=== PATIENT | male | born 1945 | race American Indian/Alaskan Native ===

== ENCOUNTER 2016-07-03 15:53 | Emergency (ER) | payer OTHER ==
[2016-07-03 16:12] VITALS: BP 117/79; PULSE 76; TEMP 98; BMI 26.6
--- NOTE | 2016-07-03 17:30 | PDOC ---
History of Present Illness - General History Source: Patient, Family, Old Records Exam Limitations: No Limitations <Navneet Caban - Last Filed: 07/03/16 17:30> - General History Source: Patient, Family (Sons), Old Records Exam Limitations: Clinical Condition - History of Present Illness Initial Comments: 07/03/16 17:58 The patient is a 70 year old male, with a significant past medical history of anemia, hypertension, hyperlipidemia, diabetes, COPD s/p tracheostomy, chronic vent, coronary artery disease s/p [place] (2013)/CABG/aortic valve replacement, who presents to the emergency department needing a trach replacement. The patients sons are at the bedside. They state that the clip on the left side of his trach broke this morning. They report that they spoke to the patients ENT (Dr. Valles) who advised them to come to the office for a trach replacement or to visit the ED for evaluation. They deny any fevers, cough, respiratory distress or any recent illnesses. HPI is primarily provided by the patients sons due to the patients baseline clinical condition. Allergies: None reported. Past Surgical History: CABG; Aortic Valve Replacement; Pacemaker. Social History: Non smoker. Denies alcohol or drug use. PCP: Dr. Isrrael Peace ENT: Dr. Carter Valles <Josseline Garza - Last Filed: 07/03/16 22:40> - General Chief Complaint: Trach Tube Replacement Stated Complaint: Trach Tube Replacement Time Seen by Provider: 07/03/16 16:04 Past History - Past Medical History Anemia: Yes Cardiac Disorders: Yes ([place] in 2013, triple bypass and valve replacement) COPD: Yes CHF: Yes Diabetes: Yes HTN: Yes Hypercholesterolemia: Yes - Surgical History Cardiac Surgery: Yes (triple bypass 2011/valve replacement) - Immunization History Immunization Up to Date: Yes - Psycho/Social/Smoking Cessation Hx Anxiety: No Suicidal Ideation: No Smoking History: Unknown if ever smoked Have you smoked in the past 12 months: No If you are a former smoker, when did you quit?: 2013 Information on smoking cessation initiated: No Hx Alcohol Use: No Drug/Substance Use Hx: No Substance Use Type: None Hx Substance Use Treatment: No <Navneet Caban - Last Filed: 07/03/16 17:30> <Josseline Garza - Last Filed: 07/03/16 22:40> - Past Medical History Allergies/Adverse Reactions: Allergies Allergy/AdvReac Type Severity Reaction Status Date / Time No Known Allergies Allergy Verified 07/03/16 16:08 Home Medications: Ambulatory Orders Pantoprazole Sodium [Protonix -] 20 mg PO DAILY 08/14/15 Acetaminophen [Tylenol .Regular Strength -] 650 mg PO Q6H PRN #0 tablet Albuterol 2.5/Ipratropium 0.5 [Duoneb -] 1 amp NEB Q6H PRN #0 amp 03/05/16 Alprazolam [Xanax] 0.25 mg PO Q8H PRN #90 tablet MDD 3 03/05/16 Amino Acids/Protein Hydrolys [Prostat Sugar-Free Packet -] 30 ml PO BID@0800, 1730 #60 packet 03/05/16 Aspirin [ASA -] 81 mg PO DAILY #30 tab.chew 03/05/16 Atorvastatin Ca [Lipitor] 10 mg PO HS #30 tablet 03/05/16 Cefuroxime Axetil [Ceftin -] 500 mg PO BID #4 tablet 03/05/16 Ferrous Sulfate [Ferosul] 300 mg PO DAILY #1 bottle 03/05/16 Furosemide [Lasix -] 20 mg PO BID@0600,1400 #60 tablet 03/05/16 Insulin Detemir [Levemir Flextouch] 5 unit SQ DAILY #1 syringe 03/05/16 Isopropyl Alcohol [Alcoh-Wipe] 1 each BID #1 box 03/05/16 Lancets/Blood Glucose Strips [Fora [id number] Strp-Lnct] 1 each BID #1 combo..pkg 03/05/16 Metformin HCl [Glucophage -] 500 mg PO BID@0700,1630 #60 tablet 03/05/16 Metoprolol Succinate [Toprol XL -] 12.5 mg PO BID #60 tab.sr.24h 03/05/16 Miscellaneous Medical Supply [Glucometer Device] 1 each [facility] BID #1 kit 03/05/16 Multivitamins [Multivit ([facility] Formulary)] 1 tab PO DAILY #30 tab 03/05/16 Prednisone [Deltasone -] 7.5 mg PO DAILY #30 tablet 03/05/16 Sennosides [Senna -] 1 tab PO BID #60 tablet 03/05/16 Tamsulosin HCl [Flomax -] 0.4 mg PO DAILY@0830 #30 cap.er.24h 03/05/16 Review of Systems - Review of Systems Able to Perform ROS?: No Comments:: 07/03/16 17:46 Unable to perform ROS due to patients baseline clinical condition. <Josseline Garza - Last Filed: 07/03/16 22:40> *Physical Exam - Vital Signs Last Vital Signs Temp Pulse Resp BP Pulse Ox 98.0 F 76 20 117/79 100 07/03/16 16:08 07/03/16 16:08 07/03/16 16:08 07/03/16 16:08 07/03/16 16:08 <Navneet Caban - Last Filed: 07/03/16 17:30> - Vital Signs Last Vital Signs Temp Pulse Resp BP Pulse Ox 98.0 F 76 20 117/79 100 07/03/16 16:08 07/03/16 16:08 07/03/16 16:08 07/03/16 16:08 07/03/16 16:08 - Physical Exam Comments: 07/03/16 17:45 GENERAL: Awake, alert, and fully oriented, in no acute distress. HEAD: No signs of trauma. EYES: PERRLA, EOMI, sclera anicteric, conjunctiva clear. ENT: Trach site is clean, dry and intact. Broken clip on left side of trach. Auricles normal inspection, hearing grossly normal, nares patent, oropharynx clear without exudates. Moist mucosa. NECK: Normal ROM, supple, no lymphadenopathy, JVD, or masses. LUNGS: Breath sounds equal, clear to auscultation bilaterally. No wheezes, and no crackles. HEART: Regular rate and rhythm, normal S1 and S2, no murmurs, rubs or gallops. ABDOMEN: Soft, nontender, normoactive bowel sounds. No guarding, no rebound. No masses. EXTREMITIES: Normal range of motion, no edema. No clubbing or cyanosis. No cords , erythema, or tenderness. NEUROLOGICAL: Cranial nerves II through XII intact. Normal speech, gait deferred. SKIN: Warm, dry, normal turgor, no rashes or lesions noted. <Josseline Garza - Last Filed: 07/03/16 22:40> ED Treatment Course - RADIOLOGY Radiology Studies Ordered: Category Date Time Status CHEST X-RAY PORTABLE* [RAD] Stat Radiology 07/03/16 16:27 Taken <Navneet Caban - Last Filed: 07/03/16 17:30> Medical Decision Making - Medical Decision Making 07/03/16 17:32 A portion of this note was documented by scribe services under my direction. I have reviewed the details of the note, within reason, and agree with the documentation with the following case summary and management plan written by me. Patient treated in the ED. Nursing notes are reviewed and incorporated into the medical decision-making. Vital signs reviewed. Peripheral IV access obtained by the nurse, laboratory studies are drawn and sent, reviewed and interpreted by myself. Vital Signs Temp Pulse Resp BP Pulse Ox 98.0 F 76 20 117/79 100 07/03/16 16:08 07/03/16 16:08 07/03/16 16:08 07/03/16 16:08 07/03/16 16:08 70 year old male with Past medical history of coronary disease, hypertension, hyperlipidemia, status post aortic valve replacement, COPD, diabetes, anemia, tracheostomy for COPD, chronically vent, lives at home brought in by sons for trach replacement. Patient has no complaints and is otherwise well. He has no respiratory distress, fevers, chills, cough. One of the clips had broken off. They had called Dr. Valles's office would by the patient to go to the ER or to their office. Patient sons brought the patient to the ER for trach exchange. I do not have any concerns for pneumonia or respiratory distress at this time. With the patient's and family's consent, we had exchange the trach with a cuffed 8.0 trach. The process was uncomplicated and there was no bleeding. Patient is breathing completely throughout the process. This was done with the airway box, ventilator, monitor, suction, respiratory therapist at the bedside. Chest x-ray was obtained and demonstrated proper placement of the trach. Patient feels comfortable to go home. I had contacted Dr. Valles and let him aware of the details. I discussed the physical exam findings, ancillary test results and final diagnoses with the patient. I answered all of the patient's questions. The patient was satisfied with the care received and felt comfortable with the discharge plan and treatment plan. The patient will call their primary care physician within 24 hours to arrange follow-up and will return to the Emergency Department with any new, persistant or worsening symptoms. <Navneet Caban - Last Filed: 07/03/16 17:30> - Medical Decision Making 07/03/16 17:[address] Carter Valles at 16:27. Connected and case discussed. EXAM: RAD/CHEST X-RAY PORTABLE Reviewed By: Dr. Brady Goddard IMPRESSION: Since 02/28/2016, the cardiac silhouette remains within normal limits in size. Tracheostomy tube is in satisfactory position. A left sided pacer again seen obscuring visualization of the left upper lobe, laterally. Status post median sternotomy. There are minimal perihilar increased lung markings without evidence of acute lung disease. Mediastinum and visualized osseous structures appear grossly intact. <Josseline Garza - Last Filed: 07/03/16 22:40> *DC/Admit/Observation/Transfer - Discharge Dispostion Admit: No <Navneet Caban - Last Filed: 07/03/16 17:30> - Attestations Scribe Attestion: 07/03/16 17:34 Documentation prepared by Josseline Garza, acting as biomedical photographer for Navneet Caban MD. <Josseline Garza - Last Filed: 07/03/16 22:40> Diagnosis at time of Disposition: Encounter for tracheostomy tube change - Discharge Dispostion Disposition: HOME Condition at time of disposition: Improved - Referrals Referrals: Isrrael Peace MD [Primary Care Provider] - - Patient Instructions Printed Discharge Instructions: How to Take Care of a Tracheostomy Additional Instructions: Your trach has been exchanged today with a 8.0 cuffed tube. Please follow up with your doctor. If you notice difficulty breathing or uncontrollable bleeding, please return to the ER for further evaluation.
== END 2016-07-03 20:24 | disposition home or self-care (01) ==
LOC: JER 15:53
PROC: 0B21XFZ Change Tracheostomy Device in Trachea, External Approach (ICD-10-PCS; principal; 2016-07-03)
DX: J95.09 Other tracheostomy complication (principal); Y83.8 Other surgical procedures as the cause of abnormal reaction of the patient, or of later complication, without mention of misadventure at the time of the procedure; J44.9 Chronic obstructive pulmonary disease, unspecified; I25.2 Old myocardial infarction; I11.9 Hypertensive heart disease without heart failure; Z95.1 Presence of aortocoronary bypass graft; Z95.2 Presence of prosthetic heart valve; Z79.01 Long term (current) use of anticoagulants; E11.9 Type 2 diabetes mellitus without complications; Z79.4 Long term (current) use of insulin; Z79.84 Long term (current) use of oral hypoglycemic drugs; E78.5 Hyperlipidemia, unspecified; Z95.0 Presence of cardiac pacemaker
CPT/HCPCS: 71010-TC; 99281-25

== ENCOUNTER 2016-11-23 10:54 | Emergency (ER) | payer OTHER ==
[2016-11-23 11:34] VITALS: TEMP 98; BMI 25.0
--- NOTE | 2016-11-23 12:13 | EKG ---
Test Reason : Blood Pressure : / mmHG Vent. Rate : 080 BPM Atrial Rate : 080 BPM P-R Int : 214 ms QRS Dur : 070 ms QT Int : 338 ms P-R-T Axes : 085 -48 101 degrees QTc Int : 389 ms POOR DATA QUALITY, INTERPRETATION MAY BE ADVERSELY AFFECTED SINUS RHYTHM WITH 1ST DEGREE A-V BLOCK LEFT AXIS DEVIATION LOW VOLTAGE QRS CANNOT RULE OUT ANTEROSEPTAL INFARCT (CITED ON OR BEFORE 27-FEB-2016) ABNORMAL ECG WHEN COMPARED WITH ECG OF 27-FEB-2016 12:08, COMPARED TO EKG NO SIGNIFICANT CHANGE IS FOUND Confirmed by NAZ MEJIA MD ([id number]) on 11/23/2016 12:13:36 PM Referred By: Confirmed By:NAZ MEJIA MD
--- NOTE | 2016-11-23 12:27 | PDOC ---
History of Present Illness - General Chief Complaint: Trach Tube Replacement Stated Complaint: trach replacement Time Seen by Provider: 11/23/16 11:22 - History of Present Illness Initial Comments: 11/23/16 19:12 71 yo M with complex past medical history who presents with tracheotomy care/ change. Last changed 06/2016. Pt. presents to ED for trach care at advice of ENT physician Dr. Valles. Pt. son at bedside states that the strap insert broke on the left side. Recently evaluated at home by physician with complete metabolic workup. Son states that they perform trach care BID. Denies fevers/chills, change in appetite, wt change, chest pain, cough, acute GI or urinary symptoms. Past History - Past Medical History Allergies/Adverse Reactions: Allergies Allergy/AdvReac Type Severity Reaction Status Date / Time No Known Allergies Allergy Verified 07/03/16 16:08 Home Medications: Ambulatory Orders Pantoprazole Sodium [Protonix -] 20 mg PO DAILY 08/14/15 Acetaminophen [Tylenol .Regular Strength -] 650 mg PO Q6H PRN #0 tablet Albuterol 2.5/Ipratropium 0.5 [Duoneb -] 1 amp NEB Q6H PRN #0 amp 03/05/16 Alprazolam [Xanax] 0.25 mg PO Q8H PRN #90 tablet MDD 3 03/05/16 Amino Acids/Protein Hydrolys [Prostat Sugar-Free Packet -] 30 ml PO BID@0800, 1730 #60 packet 03/05/16 Aspirin [ASA -] 81 mg PO DAILY #30 tab.chew 03/05/16 Atorvastatin Ca [Lipitor] 10 mg PO HS #30 tablet 03/05/16 Cefuroxime Axetil [Ceftin -] 500 mg PO BID #4 tablet 03/05/16 Ferrous Sulfate [Ferosul] 300 mg PO DAILY #1 bottle 03/05/16 Furosemide [Lasix -] 20 mg PO BID@0600,1400 #60 tablet 03/05/16 Insulin Detemir [Levemir Flextouch] 5 unit SQ DAILY #1 syringe 03/05/16 Isopropyl Alcohol [Alcoh-Wipe] 1 each [facility] BID #1 box 03/05/16 Lancets/Blood Glucose Strips [Fora [id number] Strp-Lnct] 1 each [facility] BID #1 combo..pkg 03/05/16 Metformin HCl [Glucophage -] 500 mg PO BID@0700,1630 #60 tablet 03/05/16 Metoprolol Succinate [Toprol XL -] 12.5 mg PO BID #60 tab.sr.24h 03/05/16 Miscellaneous Medical Supply [Glucometer Device] 1 each [facility] BID #1 kit 03/05/16 Multivitamins [Multivit ([facility] Formulary)] 1 tab PO DAILY #30 tab 03/05/16 Prednisone [Deltasone -] 7.5 mg PO DAILY #30 tablet 03/05/16 Sennosides [Senna -] 1 tab PO BID #60 tablet 03/05/16 Tamsulosin HCl [Flomax -] 0.4 mg PO DAILY@0830 #30 cap.er.24h 03/05/16 Anemia: Yes Cardiac Disorders: Yes ([place] in 2012, triple bypass and valve replacement) COPD: Yes CHF: Yes Diabetes: Yes HTN: Yes Hypercholesterolemia: Yes - Surgical History Cardiac Surgery: Yes (triple bypass 2011/valve replacement) - Immunization History Immunization Up to Date: Yes - Psycho/Social/Smoking Cessation Hx Anxiety: No Suicidal Ideation: No Smoking History: Unknown if ever smoked Have you smoked in the past 12 months: No If you are a former smoker, when did you quit?: 2013 Hx Alcohol Use: No Drug/Substance Use Hx: No Substance Use Type: None Hx Substance Use Treatment: No Review of Systems - Review of Systems Comments:: 11/23/16 19:16 GENERAL/CONSTITUTIONAL: No fever or chills. No weakness. HEAD, EYES, EARS, NOSE AND THROAT: No change in vision. No ear pain or discharge. No sore throat. CARDIOVASCULAR: No chest pain or shortness of breath RESPIRATORY: No cough, wheezing, or hemoptysis. GASTROINTESTINAL: No nausea, vomiting, diarrhea or constipation. GENITOURINARY: No dysuria, frequency, or change in urination. MUSCULOSKELETAL: No joint or muscle swelling or pain. No neck or back pain. SKIN: No rash NEUROLOGIC: No headache, vertigo, loss of consciousness, or change in strength/ sensation. ENDOCRINE: No increased thirst. No abnormal weight change HEMATOLOGIC/LYMPHATIC: No anemia, easy bleeding, or history of blood clots. ALLERGIC/IMMUNOLOGIC: No hives or skin allergy. *Physical Exam - Vital Signs Last Vital Signs Temp Pulse Resp BP Pulse Ox 98.0 F 81 13 112/88 100 11/23/16 11:05 11/23/16 11:10 11/23/16 11:10 11/23/16 11:05 11/23/16 11:10 - Physical Exam Comments: 11/23/16 19:17 GENERAL: Awake, alert, and fully oriented, in no acute distress HEAD: No signs of trauma, normocephalic, atraumatic EYES: PERRLA, EOMI, sclera anicteric, conjunctiva clear ENT: Trach is midline and in place. c/d/i with absent signs of discharge,leakage , or erythema from site of trach insertion site. Auricles normal inspection, hearing grossly normal, nares patent, oropharynx clear without exudates. Moist mucosa NECK: Normal ROM, supple, no lymphadenopathy, JVD, or masses LUNGS: No distress, speaks full sentences, clear to auscultation bilaterally HEART: Regular rate and rhythm, normal S1 and S2, no murmurs, rubs or gallops, peripheral pulses normal and equal bilaterally. ABDOMEN: Soft, nontender, normoactive bowel sounds. No guarding, no rebound. No masses EXTREMITIES: Normal inspection, Normal range of motion, no edema. No clubbing or cyanosis. NEUROLOGICAL: Cranial nerves II through XII grossly intact. Normal speech, normal gait, no focal sensorimotor deficits SKIN: Warm, Dry, normal turgor, no rashes or lesions noted. Procedures - Intubation Intubation Method: orotracheal (Tracheostomy tubing ) Tube Size (Fr): 8.0 Tube position confirmed by: Direct visualization, Breath sounds (Symmetric BL ) Breath Sounds after Intubation: equal Intubation Complications: no complications Post Intubation Xray: Yes - Additional Procedures Additional Procedures: tracheostomy Heart Score/ECG Review - History History: Slightly suspicious - ECG Intrepretation Rhythm: Regular Rhythm - Emily Emily: Left Emily Deviation - ECG Impressions Bradycardia: Yes Heart Block: 1st Degree Block(>20mils) Torsades michelle Pointes: No WPW: No ED Treatment Course - RADIOLOGY Radiology Studies Ordered: Category Date Time Status CXRPORT [CHEST X-RAY PORTABLE*] [RAD] Stat Radiology 11/23/16 12:00 Ordered Medical Decision Making - Medical Decision Making 11/23/16 19:20 71 yo M with complex pmh who presents for tracheotomy change. Pt. and family state that he is instructed to come to ED every 3 months for trach change by ENT Dr. Valles. Denies any signs or symptoms of infection at insertion site. No s/ s respiratory distress or complaints of aspiration. Pt. is stable on ventilation settings. EMS to take pt. home. ED Course: Trach replacement with size 8 cuffed non-fenestrated tubing. No complications with minimal blood loss from procedure. *DC/Admit/Observation/Transfer Diagnosis at time of Disposition: Tracheostomy care - Discharge Dispostion Admit: No - Referrals Referrals: Isrrael Peace MD [Staff Physician] - - Patient Instructions Printed Discharge Instructions: Tracheotomy-Adult Additional Instructions: Please return to ED in 3-4 months and follow up with Dr. Valles in the interim. Return to ED if you experience any leaking, burning, or signs of infection from tracheostomy site. Thank you. Print Language: KOREAN - Attestations Physician Attestion: 11/23/16 12:27 I, Dr. Antonio Cerda, attest that this document has been prepared under my direction and personally reviewed by me in its entirety. I further attest, that it accurately reflects all work, treatment, procedures and medical decision -making performed by me.
[2016-11-23 12:32] VITALS: BP 114/68; PULSE 88
--- NOTE | 2016-11-23 12:32 | PDOC ---
Attending Attestation - Resident Resident Name: Antonio Cerda - ED Attending Attestation I have performed the following: I have examined & evaluated the patient, The case was reviewed & discussed with the resident, I agree w/resident's findings & plan, Exceptions are as noted - HPI HPI: 11/23/16 12:27 71-year-old male with multiple medical problems presents to the ED for routine tracheostomy change, last performed in June 2016. No complaints other than the plastic sheets breaking a few days ago, no f/c/respiratory distress. - Physicial Exam PE: 11/23/16 12:31 VSS, well appearing Trach in place on vent, no drainage/bleeding, lungs clear - Medical Decision Making 11/23/16 12:31 Patient seen and evaluated with the resident. I agree with the overall evaluation, assessment, and management with the following summary of visit: With respiratory at bedside, O2 and suction setup, current trach was exchanged for new 8 cuffed non-fenestrated tube without complication. no bleeding. tolerated well, normal respirations on vent, trach placement confirmed with x- ray. Son and EMS at bedside to accompany patient back home for continued care. They understand return criteria.
== END 2016-11-23 12:32 | disposition home or self-care (01) ==
LOC: JER 10:54
DX: J95.03 Malfunction of tracheostomy stoma (principal); I25.10 Atherosclerotic heart disease of native coronary artery without angina pectoris; I11.0 Hypertensive heart disease with heart failure; Z95.1 Presence of aortocoronary bypass graft; I25.2 Old myocardial infarction; Z95.2 Presence of prosthetic heart valve; E78.00 Pure hypercholesterolemia, unspecified
CPT/HCPCS: 71010-TC; 93005; 93010; 99283-25

== ENCOUNTER 2017-04-30 19:29 | Inpatient (IN) | payer OTHER ==
[2017-04-30] MEDS ORDERED: NALOXONE HCL 0.4 MG/ML VIAL ONE (19:31)
[2017-04-30] MEDS ORDERED: AMIODARONE HCL 150 MG/3 ML VIAL ONE (19:36)
[2017-04-30] MEDS ORDERED: SODIUM BICARBONATE 8.4% 50 MEQ/50 ML VIAL ONE (19:37)
[2017-04-30] MEDS ORDERED: CALCIUM CHLORIDE 1 GM/10 ML *DISP.SYRIN ONE (19:40)
[2017-04-30] MEDS ORDERED: FUROSEMIDE 40 MG/4 ML INJECTABLE VIAL IVPUSH ONE (19:51)
[2017-04-30] MEDS ORDERED: INSULIN REGULAR HUMAN 100 UNITS/ML *VIAL IVPUSH ONE (19:53)
[2017-04-30] MEDS ORDERED: DEXTROSE 50%-WATER - 25 GM/50 ML VIAL IVPUSH ONE (19:54)
[2017-04-30] MEDS ORDERED: INSULIN REGULAR HUMAN 100 UNITS/ML *VIAL ONE (19:56)
[2017-04-30 19:57] VITALS: BMI 28.1
[2017-04-30] MEDS ORDERED: HEPARIN NA (PORCINE) 5,000 UNITS/ML 1ML VIAL ONE (20:03)
--- NOTE | 2017-04-30 20:04 | PDOC ---
History of Present Illness <Shahida Tobin - Last Filed: 04/30/17 20:42> - History of Present Illness Initial Comments: 04/30/17 20:02 Pt unresponsive. History from family and records. Pt is a 71 y/o M w/ PMH tracheostomy (vent dependent), COPD, DM2 (uncontrolled) , [place] s/p CABG with Ao valve replacement 2012, s/p PPM HTN, HLD who was BIBEMS with hypoxia. Pt was unresponsive and pulseless on arrival. Per family, pt had his trach cuff deflated and re-inflated today after which pt began to desaturate. BGM at home was 220. Pt's family gave some long-acting insulin at home. Pt did not improve and was brought to ED. En route pt received 2 Epi, 1 dose Amio, and 1 amp bicarb. On arriving, pt was in PEA and unresponsive. Compressions were started at 7:30. ROSC was achieved at 7:40. Pt still unresponsive. Bedside cardiac echo did not reveal tamponade. EKG & CXR were ordered. In ED, pt received 2 CaCl, 1 amp D50, 10 units Ins, 3 Epi, Hep drip + shah. <Audie Deshpande - Last Filed: 05/01/17 05:04> <Cristy Wiggins - Last Filed: 05/01/17 19:41> - General Chief Complaint: Cardiac Arrest Stated Complaint: CARDIAC ARREST Time Seen by Provider: 04/30/17 19:50 Past History <Shahida Tobin - Last Filed: 04/30/17 20:42> - Past Medical History Anemia: Yes Cardiac Disorders: Yes (IL in 2013, triple bypass and valve replacement) COPD: Yes CHF: Yes Diabetes: Yes HTN: Yes Hypercholesterolemia: Yes - Surgical History Cardiac Surgery: Yes (triple bypass 2011/valve replacement) - Immunization History Immunization Up to Date: Yes - Suicide/Smoking/Psychosocial Hx Smoking History: Unknown if ever smoked Have you smoked in the past 12 months: No If you are a former smoker, when did you quit?: 2013 Hx Alcohol Use: No Drug/Substance Use Hx: No Substance Use Type: None Hx Substance Use Treatment: No <Audie Deshpande - Last Filed: 05/01/17 05:04> <Wiggins,Cristy - Last Filed: 05/01/17 19:41> - Past Medical History Allergies/Adverse Reactions: Allergies Allergy/AdvReac Type Severity Reaction Status Date / Time No Known Allergies Allergy Verified 05/01/17 07:15 Home Medications: Ambulatory Orders Pantoprazole Sodium [Protonix -] 20 mg PO DAILY 08/14/15 Acetaminophen [Tylenol .Regular Strength -] 650 mg PO Q6H PRN #0 tablet Albuterol 2.5/Ipratropium 0.5 [Duoneb -] 1 amp NEB Q6H PRN #0 amp 03/05/16 Alprazolam [Xanax] 0.25 mg PO Q8H PRN #90 tablet MDD 3 03/05/16 Amino Acids/Protein Hydrolys [Prostat Sugar-Free Packet -] 30 ml PO BID@0800, 1730 #60 packet 03/05/16 Aspirin [ASA -] 81 mg PO DAILY #30 tab.chew 03/05/16 Atorvastatin Ca [Lipitor] 10 mg PO HS #30 tablet 03/05/16 Cefuroxime Axetil [Ceftin -] 500 mg PO BID #4 tablet 03/05/16 Ferrous Sulfate [Ferosul] 300 mg PO DAILY #1 bottle 03/05/16 Furosemide [Lasix -] 20 mg PO BID@0600,1400 #60 tablet 03/05/16 Insulin Detemir [Levemir Flextouch] 5 unit SQ DAILY #1 syringe 03/05/16 Isopropyl Alcohol [Alcoh-Wipe] 1 each BID #1 box 03/05/16 Lancets/Blood Glucose Strips [Fora [id number] Strp-Lnct] 1 each BID #1 combo..pkg 03/05/16 Metformin HCl [Glucophage -] 500 mg PO BID@0700,1630 #60 tablet 03/05/16 Metoprolol Succinate [Toprol XL -] 12.5 mg PO BID #60 tab.sr.24h 03/05/16 Miscellaneous Medical Supply [Glucometer Device] 1 each [facility] BID #1 kit 03/05/16 Multivitamins [Multivit ([facility] Formulary)] 1 tab PO DAILY #30 tab 03/05/16 Prednisone [Deltasone -] 7.5 mg PO DAILY #30 tablet 03/05/16 Sennosides [Senna -] 1 tab PO BID #60 tablet 03/05/16 Tamsulosin HCl [Flomax -] 0.4 mg PO DAILY@0830 #30 cap.er.24h 03/05/16 Review of Systems - Review of Systems Able to Perform ROS?: No <Audie Deshpande - Last Filed: 05/01/17 05:04> *Physical Exam - Vital Signs Last Vital Signs Temp Pulse Resp BP Pulse Ox 0 F L 0 L 0 L 000/00 04/30/17 19:35 04/30/17 19:35 04/30/17 19:35 04/30/17 19:35 <Shahida Tobin - Last Filed: 04/30/17 20:42> - Vital Signs Last Vital Signs Temp Pulse Resp BP Pulse Ox 0 F L 0 L 0 L 000/00 04/30/17 19:35 04/30/17 19:35 04/30/17 19:35 04/30/17 19:35 <Audie Deshpande - Last Filed: 05/01/17 05:04> - Vital Signs Last Vital Signs Temp Pulse Resp BP Pulse Ox 0 F L 0 L 20 000/00 04/30/17 19:35 04/30/17 19:35 04/30/17 20:00 04/30/17 19:35 <Cristy Wiggins - Last Filed: 05/01/17 19:41> ED Treatment Course - LABORATORY CBC & Chemistry Diagram: 04/30/17 20:09 04/30/17 20:09 - ADDITIONAL ORDERS Additional order review: Laboratory Results 04/30/17 20:15 Puncture Site Right radial ABG pH 7.26 L D ABG pCO2 at Pt Temp 68.6 H* ABG pO2 at Pt Temp 377.0 H* D ABG HCO3 29.4 H ABG O2 Sat (Measured) 99.7 H* ABG O2 Content 14.1 L ABG Base Excess 1.7 Rashel Test Positive Carboxyhemoglobin 1.0 Methemoglobin 0.7 O2 Delivery Device Mech vent Oxygen Flow Rate 100% Vent Mode A/c Vent Rate 20 Mechanical Rate Y PEEP 5.0 Pressure Support Vent 450 04/30/17 20:09 RBC 4.33 D MCV 80.9 MCHC 30.9 L RDW 18.0 H MPV 8.8 Neutrophils % No Result Required. Lymphocytes % No Result Required. <Shahida Tobin - Last Filed: 04/30/17 20:42> - LABORATORY CBC & Chemistry Diagram: 04/30/17 20:09 04/30/17 20:09 <Audie Deshpande - Last Filed: 05/01/17 05:04> - LABORATORY CBC & Chemistry Diagram: 05/01/17 05:50 05/01/17 05:50 - ADDITIONAL ORDERS Additional order review: Laboratory Results 04/30/17 04/30/17 04/30/17 20:15 20:09 20:09 PT with INR INR PTT (Actin FS) Puncture Site Right radial ABG pH 7.26 L D ABG pCO2 at Pt Temp 68.6 H* ABG pO2 at Pt Temp 377.0 H* D ABG HCO3 29.4 H ABG O2 Sat (Measured) 99.7 H* ABG O2 Content 14.1 L ABG Base Excess 1.7 Rashel Test Positive Carboxyhemoglobin 1.0 Methemoglobin 0.7 O2 Delivery Device Mech vent Oxygen Flow Rate 100% Vent Mode A/c Vent Rate 20 Mechanical Rate Y PEEP 5.0 Pressure Support Vent 450 Sodium Potassium Chloride Carbon Dioxide Anion Gap BUN Creatinine Creat Clearance w eGFR Random Glucose Lactic Acid 5.4 H* Calcium Total Bilirubin AST ALT Alkaline Phosphatase Creatine Kinase Troponin I B-Natriuretic Peptide 1026.58 H Total Protein Albumin 04/30/17 04/30/17 04/30/17 20:09 20:09 20:09 PT with INR 14.70 H INR 1.30 H D PTT (Actin FS) > 400.0 H Puncture Site ABG pH ABG pCO2 at Pt Temp ABG pO2 at Pt Temp ABG HCO3 ABG O2 Sat (Measured) ABG O2 Content ABG Base Excess Rashel Test Carboxyhemoglobin Methemoglobin O2 Delivery Device Oxygen Flow Rate Vent Mode Vent Rate Mechanical Rate PEEP Pressure Support Vent Sodium 137 Potassium 3.3 L Chloride 96 L Carbon Dioxide 28 D Anion Gap 13 BUN 26 H D Creatinine 1.2 D Creat Clearance w eGFR 59.68 Random Glucose 463 H* D Lactic Acid Calcium 10.2 H D Total Bilirubin 0.5 D AST 296 H D ALT 229 H D Alkaline Phosphatase 68 D Creatine Kinase 57 Troponin I 0.07 H D B-Natriuretic Peptide Total Protein 5.4 L Albumin 2.6 L 04/30/17 20:09 RBC 4.33 D MCV 80.9 MCHC 30.9 L RDW 18.0 H MPV 8.8 Neutrophils % No Result Required. Lymphocytes % No Result Required. - RADIOLOGY Radiology Studies Ordered: Category Date Time Status CHEST X-RAY PORTABLE* [RAD] Stat Radiology 04/30/17 19:50 Completed - Medications Given in the ED: ED Medications Discontinued Medications Generic Name Dose Route Start Last Admin Trade Name Jaxson PRN Reason Stop Dose Admin Furosemide 40 mg 04/30/17 19:51 04/30/17 21:09 Lasix Injection - IVPUSH 04/30/17 19:52 Not Given ONCE ONE Sodium Chloride 1,000 ml 04/30/17 20:55 04/30/17 21:09 Normal Saline - IV 04/30/17 20:56 1,000 ml ONCE ONE Administration <Cristy Wiggins - Last Filed: 05/01/17 19:41> Medical Decision Making - Medical Decision Making 04/30/17 8:31 Call placed to ICU for inpatient admission. 8:33pm Call placed to Dr. Adams's answering service, hospitalist is bonding equipment operator. <Shahida Tobin - Last Filed: 04/30/17 20:42> - Medical Decision Making 04/30/17 21:00 Pt is a 71 M w/ PMH COPD, tracheostomy tube (unclear if vent dependent at home) , uncontrolled DM2, [place] s/p CABG w/ Ao valve replacement 2012, HTN, HLD who came to ED in PEA arrest. Pt was coded for 10 min, and ROSC was achieved. -EKG changes evident. Pt heparinized -Pt placed on vent. FiO2 100, RR 20, Tidal vol 450, PEEP 5, Peak flow 60 -EtCO2 37 -Labs significant for WBC 12, K 3.3, rand glucose 463 (BGM 220 en route to hospital), gap 13, AST 296, ALT 229, Tn 0.07, BNP 1026, INR 1.30, PTT >400 -Plan to admit to ICU 04/30/17 21:15 Spoke with hospitalist. Pt is accepted for admission to ICU. Rec possible cooling protocol. Case d/w attending. 04/30/17 22:50 Pt's BP was 140 sys but was tachypnic. Versed was started, but BP dropped significantly, so versed was held. Current BP 65/54. HR 78. O2 sat 100. Fluids wide open. Sedation being held. 04/30/17 23:13 HR 86, BP 113/86, O2 sat 100. Fluids still running. Sedation still being held. 05/01/17 05:04 Vital signs have continued to be stable <Audie Deshpande - Last Filed: 05/01/17 05:04> - Critical Care Time Total Critical Care Time (minutes): 90 Critical Care Statement: The care of this patient involved high complexity decision making to prevent further life threatening deterioration of the patient 's condition and/or to evaluate & treat vital organ system(s) failure or risk of failure. <Cristy Wiggins - Last Filed: 05/01/17 19:41> *DC/Admit/Observation/Transfer - Attestations Scribe Attestion: 04/30/17 20:43 Documentation prepared by Shahida Tobin, acting as biomedical specialist for Cristy Wiggins MD. <Shahida Tobin - Last Filed: 04/30/17 20:42> - Discharge Dispostion Admit: Yes <Audie Deshpande - Last Filed: 05/01/17 05:04> - Discharge Dispostion Admit: Yes <Cristy Wiggins - Last Filed: 05/01/17 19:41> Diagnosis at time of Disposition: Cardiac arrest - Discharge Dispostion Condition at time of disposition: Critical
[2017-04-30] MEDS ORDERED: HEPARIN NA (PORCINE) 5,000 UNITS/ML 1ML VIAL IVPUSH ONE (20:12)
--- NOTE | 2017-04-30 20:15 | PDOC ---
Attending Attestation - Resident Resident Name: CharleeAudie - ED Attending Attestation I have performed the following: I have examined & evaluated the patient, The case was reviewed & discussed with the resident, I agree w/resident's findings & plan - HPI HPI: 04/30/17 21:04 Pt's kids state that his trach collar balloon became deflated, but once his son inflated the balloon, pt went into arrest. EMS called, and they began chest compressions. Pt given epix2 and a bicarb. Blood sugar was in the 200s and pt was started on amiodarone once they got a rhythm. In the ER pt is deemed to be in PEA. We began chest compressions. Pt was overbagged by EMS and he was essentially having no blood output. Pt was allowed to decompress his lungs, and after 3 rounds of epi and another bicarb and 2 calcium carbonates, pt responded with ROSC. Bedside sono demonstrated no pericardial effusion. Pt then given 5000U heparin and heparin drip started, as he has widened QRS on EKG and flipped Ts- different from the past EKG 6 mos ago. Pt also got D50 and 10 U insulin, as he has had hyperkalemia in the past, and he seemed to respond to ca carbonate. We had no information on the patient throughout the code and initial treatment of patient, EMS scooped and ran. No name of patient and no PMHx. Upon arrival of family, we learned his name and age and PMHx and PSHx of defibrillator, prosthetic valve, and triple bypass. - Physicial Exam PE: 05/01/17 06:58 Agree with resident exam. - Critical Care Time Total Critical Care Time: 90 Critical Care Statement: The care of this patient involved high complexity decision making to prevent further life threatening deterioration of the patient 's condition and/or to evaluate & treat vital organ system(s) failure or risk of failure. - Medical Decision Making 05/01/17 06:59 Pt will be admitted to ICU under hospitalist, who covers pt's PMD Angie. There are no ICU beds at this time.
[2017-04-30 20:20] LABS: ARTERIAL BLOOD GAS BASE EXCESS 1.7 meq/l (-2-2); ARTERIAL BLOOD GAS pH 7.26 (7.35-7.45)
[2017-04-30 20:25] LABS: HEMOGLOBIN 10.8 GM/dL (11.7-16.9); MCHC 30.9 g/dl (32.0-35.9); MEAN CELL VOLUME 80.9 fl (80-96); MEAN PLT VOLUME 8.8 fl (7.5-11.1); PLATELET COUNT 205 K/MM3 (134-434); RBC 4.33 M/mm3 (4.00-5.60); WHITE BLOOD COUNT 12.8 K/mm3 (4.0-10.0)
[2017-04-30 20:26] LABS: ARTERIAL BLOOD GAS PCO2 68.6 mmHg (35-45)
[2017-04-30 20:27] LABS: ALLENS TEST POSITIVE; ARTERIAL BLD GAS O2 SATURATION 99.7 % (90-98.9)
[2017-04-30 20:37] LABS: INR 1.3 (0.82-1.09); PROTHROMBIN TIME (PATIENT) 14.7 SEC (9.98-11.88)
[2017-04-30 20:48] LABS: ALBUMIN 2.6 g/dl (3.4-5.0); ANION GAP 13 (8-16); BILIRUBIN,TOTAL 0.5 mg/dL (0.2-1.0); BLOOD UREA NITROGEN 26 mg/dL (7-18); CALCIUM 10.2 mg/dL (8.5-10.1); CHLORIDE 96 mmol/L (98-107); CO2 28 mmol/L (21-32); CREATININE 1.2 mg/dL (0.7-1.3); POTASSIUM 3.3 mmol/L (3.5-5.1); SGOT/AST 296 U/L (15-37); SGPT/ALT 229 U/L (12-78); SODIUM 137 mmol/L (136-145); TOT PROT 5.4 g/dl (6.4-8.2)
[2017-04-30 20:50] LABS: ALK PHOS 68 U/L (45-117)
[2017-04-30] MEDS ORDERED: SODIUM CHLORIDE 0.9% 1000 ML INFUS.BAG IV ONE (20:55)
[2017-04-30 21:11] LABS: GLUCOSE,RANDOM 463 mg/dL (74-106)
--- NOTE | 2017-04-30 21:51 | HP ---
Admitting History and Physical - Primary Care Physician PCP: Lino Adams - Admission Chief Complaint: Difficulty Breathing, Cardiac Arrest History of Present Illness: This is a 71 y/o man with a significant medical history of UT (2012), s/p Aortic Valve Replacement (2012),CABG, COPD, trach dependent, HTN, HLD, AICD ( 2016). Who presents to the ED with O2 desaturation 50's, s/p Cardiac Arrest in field. Patient's son reports that the tracheotomy cuff deflated, he attempted to inflate and he noted that the patient's Spo2- 50%. He reports calling 911, for assistance. Per the patient's son, when the fire department arrived they began working on the patient. Per ED records, the patient lost pulses in the field and was resuscitated, CPR, Epi x2, Bicarb, Amiodarone bolus. The patient arrested in the ED and was given Epi x3. bicarb calcium chloride, D50, insulin with ROSC. Patient is admitted to ICU for s/p Cardiac Arrest, Acute Respiratory Failure, Hypercapnia History Source: Family Member, Medical Record Limitations to Obtaining History: Clinical Condition, Unresponsive - Past Medical History Cardiovascular: Yes: Aortic Insufficiency, CAD (UT in 2012 -> CABG ), HTN, Hyperlipdemia, UT, Other (s/p aortic valve replacement in 2012) Pulmonary: Yes: COPD, O2 Dependent (since 2012), Other (trache and vent dependent) - Past Surgical History Past Surgical History: Yes: AICD, CABG (in 2012), Cholecystectomy, Hernia Repair (right groin), Valve Replacement (in 2012) - Advance Directives Advance Directives: Yes: Health Care Proxy - Smoking History Smoking history: Unknown if ever smoked Have you smoked in the past 12 months: No If you are a former smoker, when did you quit?: 2013 - Alcohol/Substance Use Hx Alcohol Use: No History of Substance Use: reports: None - Social History Usual Living Arrangement: Yes: With Spouse, With Child ADL: Support Services 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 History of Recent Travel: No Home Medications - Allergies Allergies/Adverse Reactions: Allergies Allergy/AdvReac Type Severity Reaction Status Date / Time No Known Allergies Allergy Verified 04/30/17 19:57 - Home Medications Home Medications: Ambulatory Orders Pantoprazole Sodium [Protonix -] 20 mg PO DAILY 08/14/15 Acetaminophen [Tylenol .Regular Strength -] 650 mg PO Q6H PRN #0 tablet Albuterol 2.5/Ipratropium 0.5 [Duoneb -] 1 amp NEB Q6H PRN #0 amp 03/05/16 Alprazolam [Xanax] 0.25 mg PO Q8H PRN #90 tablet MDD 3 03/05/16 Amino Acids/Protein Hydrolys [Prostat Sugar-Free Packet -] 30 ml PO BID@0800, 1730 #60 packet 03/05/16 Aspirin [ASA -] 81 mg PO DAILY #30 tab.chew 03/05/16 Atorvastatin Ca [Lipitor] 10 mg PO HS #30 tablet 03/05/16 Cefuroxime Axetil [Ceftin -] 500 mg PO BID #4 tablet 03/05/16 Ferrous Sulfate [Ferosul] 300 mg PO DAILY #1 bottle 03/05/16 Furosemide [Lasix -] 20 mg PO BID@0600,1400 #60 tablet 03/05/16 Insulin Detemir [Levemir Flextouch] 5 unit SQ DAILY #1 syringe 03/05/16 Isopropyl Alcohol [Alcoh-Wipe] 1 each BID #1 box 03/05/16 Lancets/Blood Glucose Strips [Fora [id number] [facility]] 1 each BID #1 combo..pkg 03/05/16 Metformin HCl [Glucophage -] 500 mg PO BID@0700,1630 #60 tablet 03/05/16 Metoprolol Succinate [Toprol XL -] 12.5 mg PO BID #60 tab.sr.24h 03/05/16 Miscellaneous Medical Supply [Glucometer Device] 1 each [facility] BID #1 kit 03/05/16 Multivitamins [Multivit ([facility] Formulary)] 1 tab PO DAILY #30 tab 03/05/16 Prednisone [Deltasone -] 7.5 mg PO DAILY #30 tablet 03/05/16 Sennosides [Senna -] 1 tab PO BID #60 tablet 03/05/16 Tamsulosin HCl [Flomax -] 0.4 mg PO DAILY@0830 #30 cap.er.24h 03/05/16 Family Disease History - Family Disease History Family Disease History: Other: Son (alive and well) Review of Systems Unable to obtain ROS, reason: unresponsive Physical Examination Vital Signs: Vital Signs Temperature 0 F L 04/30/17 19:35 Pulse Rate 62 04/30/17 19:45 Respiratory Rate 20 04/30/17 20:00 Blood Pressure 187/84 04/30/17 19:45 O2 Sat by Pulse Oximetry (%) 100 04/30/17 19:45 Constitutional: Yes: Obese HENT: Yes: WNL, Atraumatic, Normocephalic Neck: Yes: Supple, Other (trach) Cardiovascular: Yes: Pulse Irregular, S1, S2 Respiratory: Yes: Mechanically Ventilated (trach to ventilator), Rhonchi Gastrointestinal: Yes: Abdomen, Obese ...Rectal Exam: Yes: Deferred Renal/: Yes: Cooper Present (yellow urine in drainage bag) Breast(s): Yes: WNL Musculoskeletal: Yes: WNL Edema: Yes Edema: LLE: 2+, RLE: 2+ Peripheral Pulses WNL: Yes Neurological: Yes: Unresponsive (GSC 3) Labs: CBC, BMP 04/30/17 20:09 04/30/17 20:09 Laboratory Results - last 24 hr 04/30/17 04/30/17 04/30/17 20:09 20:09 20:09 WBC 12.8 H D RBC 4.33 D Hgb 10.8 L D Hct 35.0 L D MCV 80.9 MCH 25.0 L MCHC 30.9 L RDW 18.0 H Plt Count 205 D MPV 8.8 Neutrophils % No Result Required. Neutrophils % (Manual) 56.6 Band Neutrophils % 0.0 Lymphocytes % No Result Required. Lymphocytes % (Manual) 28.3 Monocytes % (Manual) 3 L Eosinophils % (Manual) 0.0 Basophils % (Manual) 0.0 Myelocytes % (Man) 4 H Metamyelocytes 2 PT with INR 14.70 H INR 1.30 H D PTT (Actin FS) > 400.0 H Puncture Site ABG pH ABG pCO2 at Pt Temp ABG pO2 at Pt Temp ABG HCO3 ABG O2 Sat (Measured) ABG O2 Content ABG Base Excess Rashel Test Carboxyhemoglobin Methemoglobin O2 Delivery Device Oxygen Flow Rate Vent Mode Vent Rate Mechanical Rate PEEP Pressure Support Vent Sodium Potassium Chloride Carbon Dioxide Anion Gap BUN Creatinine Creat Clearance w eGFR Random Glucose Lactic Acid Calcium Phosphorus Magnesium Total Bilirubin AST ALT Alkaline Phosphatase Creatine Kinase Troponin I B-Natriuretic Peptide Total Protein Albumin 04/30/17 04/30/17 04/30/17 20:09 20:09 20:09 WBC RBC Hgb Hct MCV MCH MCHC RDW Plt Count MPV Neutrophils % Neutrophils % (Manual) Band Neutrophils % Lymphocytes % Lymphocytes % (Manual) Monocytes % (Manual) Eosinophils % (Manual) Basophils % (Manual) Myelocytes % (Man) Metamyelocytes PT with INR INR PTT (Actin FS) Puncture Site ABG pH ABG pCO2 at Pt Temp ABG pO2 at Pt Temp ABG HCO3 ABG O2 Sat (Measured) ABG O2 Content ABG Base Excess Rashel Test Carboxyhemoglobin Methemoglobin O2 Delivery Device Oxygen Flow Rate Vent Mode Vent Rate Mechanical Rate PEEP Pressure Support Vent Sodium 137 Potassium 3.3 L Chloride 96 L Carbon Dioxide 28 D Anion Gap 13 BUN 26 H D Creatinine 1.2 D Creat Clearance w eGFR 59.68 Random Glucose 463 H* D Lactic Acid 5.4 H* Calcium 10.2 H D Phosphorus Magnesium Total Bilirubin 0.5 D AST 296 H D ALT 229 H D Alkaline Phosphatase 68 D Creatine Kinase 57 Troponin I 0.07 H D B-Natriuretic Peptide 1026.58 H Total Protein 5.4 L Albumin 2.6 L 04/30/17 04/30/17 04/30/17 20:09 20:15 22:52 WBC RBC Hgb Hct MCV MCH MCHC RDW Plt Count MPV Neutrophils % Neutrophils % (Manual) Band Neutrophils % Lymphocytes % Lymphocytes % (Manual) Monocytes % (Manual) Eosinophils % (Manual) Basophils % (Manual) Myelocytes % (Man) Metamyelocytes PT with INR INR PTT (Actin FS) Puncture Site Right radial ABG pH 7.26 L D ABG pCO2 at Pt Temp 68.6 H* ABG pO2 at Pt Temp 377.0 H* D ABG HCO3 29.4 H ABG O2 Sat (Measured) 99.7 H* ABG O2 Content 14.1 L ABG Base Excess 1.7 Rashel Test Positive Carboxyhemoglobin 1.0 Methemoglobin 0.7 O2 Delivery Device Mech vent Oxygen Flow Rate 100% Vent Mode A/c Vent Rate 20 Mechanical Rate Y PEEP 5.0 Pressure Support Vent 450 Sodium Potassium Chloride Carbon Dioxide Anion Gap BUN Creatinine Creat Clearance w eGFR Random Glucose Lactic Acid 3.9 H* Calcium Phosphorus 6.8 H D Magnesium 1.8 Total Bilirubin AST ALT Alkaline Phosphatase Creatine Kinase Troponin I B-Natriuretic Peptide Total Protein Albumin Imaging - Results Chest X-ray: Image Reviewed Problem List - Problems (1) Cardiac arrest Code(s): I46.9 - CARDIAC ARREST, CAUSE UNSPECIFIED (2) Acute and chronic respiratory failure with hypercapnia Code(s): J96.22 - ACUTE AND CHRONIC RESPIRATORY FAILURE WITH HYPERCAPNIA (3) Tracheostomy malfunction Code(s): J95.03 - MALFUNCTION OF TRACHEOSTOMY STOMA (4) Lactic acidosis Code(s): E87.2 - ACIDOSIS (5) Leukocytosis Code(s): D72.829 - ELEVATED WHITE BLOOD CELL COUNT, UNSPECIFIED (6) CAD (coronary artery disease) Code(s): I25.10 - ATHSCL HEART DISEASE OF [place] CORONARY ARTERY W/O ANG PCTRS (7) COPD (chronic obstructive pulmonary disease) Code(s): J44.9 - CHRONIC OBSTRUCTIVE PULMONARY DISEASE, UNSPECIFIED Qualifiers: Emphysema type: unspecified (8) Tracheostomy care Code(s): Z43.0 - ENCOUNTER FOR ATTENTION TO TRACHEOSTOMY (9) Ventilator dependence Code(s): Z99.11 - DEPENDENCE ON RESPIRATOR [VENTILATOR] STATUS (10) DVT prophylaxis Code(s): LGV3657 - Assessment/Plan This is a 71 y/o man with a PMHx of: UT(2012), s/p Aortic Valve Replacement(2012 ), CABG, HTN, HLD, COPD (trach dependent). Admitted to ICU for s/p Cardiac Arrest, Acute Respiratory Failure, Hypercapnia. Plan: 1. s/p Cardiac Arrest- Possibly secondary to Respiratory Failure vs AMI. Continue Cardiac Monitoring, resuscitative events in field and ED- ROSC. Continue IV fluid, Maintain NGT, Replete lytes, Monitor CBC, Appreciate Cardiology Consult, Serial Enzymes, continue Heparin Drip secondary to EKG changes concerning for UT. 2. Acute Respiratory Failure, Hypercapnia- Continue trach- ventilator Vent Settings: TV 450, FIO2 50%, Rate 24, PEEP 5. AB.26/68.6/377/29.4/99- Fio2 decreased from 100- 50%. will repeat ABG in am. Appreciate Pulmonology Consult. Chest Xray-reviewed 3. UT hx- s/p stent- Initial EKG changes noted- Heparin given in ED, Serial Enzymes, Appreciate Cardiology consult. Continue Asa. 4. Hypertension- Monitor BP, Home med held secondary to hypotension 5. Hyperlipidemia- Continue Lipitor 6. COPD- Continue trach- ventilator, Duonebs, Appreciate Pulmonology Consult 7. Diabetes Mellitus- BGMs, Hold Metformin secondary to Lactic Acidosis 8. Hyperglycemia- Likely secondary to D50 given during resuscitation- BGMs, ISS , Hgb A1c in am 9. Lactic Acidosis- Likely secondary to s/p cardiac arrest, Trend LA 10. Leukocytosis- Likely infectious vs inflammatory. Blood Cultures-pending, Urine Culture pending-Monitor CBC, Appreciate ID Consult 11. FEN- IVF, Replete lyted prn, NPO 12. DVT Prophylaxis- SCDs, Heparin Code Status: Full Code, HCP Dispo: Requires Inpatient Care Visit type - Emergency Visit Emergency Visit: Yes ED Registration Date: 04/30/17 Care time: The patient presented to the Emergency Department on the above date and was hospitalized for further evaluation of their emergent condition. - New Patient This patient is new to me today: Yes Date on this admission: 04/30/17 - Critical Care Critical Care patient: Yes Total Critical Care Time (in minutes): 60 Critical Care Statement: The care of this patient involved high complexity decision making to prevent further life threatening deterioration of the patient 's condition and/or to evaluate & treat vital organ system(s) failure or risk of failure.
[2017-04-30] MEDS: HEPARIN - 25,000 UNIT in SODIUM CHLORIDE 495 ML IV SCH (21:57)
[2017-04-30] MEDS ORDERED: MIDAZOLAM 100 MG in SODIUM CHLORIDE 100 ML IVPB SCH (22:30)
[2017-04-30 23:22] LABS: MAGNESIUM 1.8 mg/dL (1.8-2.4); PHOSPHOROUS 6.8 mg/dL (2.5-4.9)
--- NOTE | 2017-04-30 23:29 | CONSULT ---
Consult - text type - Consultation Consultation Note: Pulm/CCM Pt seen and examined in ED prior to transfer to ICU CC: cardiac arrest Hx obtained from medical record, ED staff HPI: Briefly Gracy Doshi is a 71 yo man with end stage COPD s/p tracheostomy, vent dependent, CAD s/p CABG and AVR who presented to ED in cardiac arrest in setting of ? trach dislodgement, over ventilation. It is a bit unclear from story but apparently pts cuff was deflated and they reinflated after which pt promptly desatted and progressed to cardiopulm arrest. EMS was called and resuscitation was performed. Pt became hyperinflated due to bagging and the arrest was prolonged (at least 2 epi, hco3, amio). Pt arrived in ED still in PEA , another 10 min of ACLS before ROSC. ? approx 20 min in total. Apparently good CPR throughout with good Spo2 wave form. Pt was not awake post arrest. Hep gtt was started due to concerning EKG changes, which are resolving. Abg showed acute on chronic hypercapnea, BP was soft but maintained. Pt Vital Signs Temp 97.2 F L 04/30/17 22:02 Pulse 85 04/30/17 23:13 Resp 20 04/30/17 23:13 BP 113/62 04/30/17 23:13 Pulse Ox 100 04/30/17 23:13 Intake & Output 04/29/17 04/30/17 04/30/17 23:59 11:59 23:59 Output Total 60 Balance -60 Weight 81.647 kg Output: Urine 60 Cooper 60 Other: Voiding Method Indwelling Catheter Height 5 ft 7 in Body Mass Index (BMI) 28.1 Weight Measurement Method Estimated by Staff Ambulatory Orders Pantoprazole Sodium [Protonix -] 20 mg PO DAILY 08/14/15 Acetaminophen [Tylenol .Regular Strength -] 650 mg PO Q6H PRN #0 tablet Albuterol 2.5/Ipratropium 0.5 [Duoneb -] 1 amp NEB Q6H PRN #0 amp 03/05/16 Alprazolam [Xanax] 0.25 mg PO Q8H PRN #90 tablet MDD 3 03/05/16 Amino Acids/Protein Hydrolys [Prostat Sugar-Free Packet -] 30 ml PO BID@0800, 1730 #60 packet 03/05/16 Aspirin [ASA -] 81 mg PO DAILY #30 tab.chew 03/05/16 Atorvastatin Ca [Lipitor] 10 mg PO HS #30 tablet 03/05/16 Cefuroxime Axetil [Ceftin -] 500 mg PO BID #4 tablet 03/05/16 Ferrous Sulfate [Ferosul] 300 mg PO DAILY #1 bottle 03/05/16 Furosemide [Lasix -] 20 mg PO BID@0600,1400 #60 tablet 03/05/16 Insulin Detemir [Levemir Flextouch] 5 unit SQ DAILY #1 syringe 03/05/16 Isopropyl Alcohol [Alcoh-Wipe] 1 each BID #1 box 03/05/16 Lancets/Blood Glucose Strips [Fora [id number] Strp-Lnct] 1 each BID #1 combo..pkg 03/05/16 Metformin HCl [Glucophage -] 500 mg PO BID@0700,1630 #60 tablet 03/05/16 Metoprolol Succinate [Toprol XL -] 12.5 mg PO BID #60 tab.sr.24h 03/05/16 Miscellaneous Medical Supply [Glucometer Device] 1 each SCJ BID #1 kit 03/05/16 Multivitamins [Multivit ([facility] Formulary)] 1 tab PO DAILY #30 tab 03/05/16 Prednisone [Deltasone -] 7.5 mg PO DAILY #30 tablet 03/05/16 Sennosides [Senna -] 1 tab PO BID #60 tablet 03/05/16 Tamsulosin HCl [Flomax -] 0.4 mg PO DAILY@0830 #30 cap.er.24h 03/05/16 Past Medical History Cardio/Vascular CAD ([place] in 2012 -> CABG ),HTN (s/p aortic valve replacement in 2012),Hyperlipdemia,Other Pulmonary COPD (since 2012),O2 Dependent (trache and vent dependent),Other Past Surgical History Past Surgical History CABG (in 2012),Cholecystectomy (right groin), Hernia Repair (in 2012),Valve Replacement Smoking History Smoking history Unknown if ever smoked If you are a former smoker, 2013 when did you quit? 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 History of Recent Travel No ABG Results ABG pH 7.26 (7.35-7.45) L D 01/05/18 20:15 ABG pCO2 at Pt Temp 68.6 mmHg (35-45) H* 04/30/17 20:15 ABG pO2 at Pt Temp 377.0 mmHg (70-100) H* D 04/30/17 20:15 ABG HCO3 29.4 meq/L (22-26) H 04/30/17 20:15 ABG O2 Sat (Measured) 99.7 % (90-98.9) H* 04/30/17 20:15 ABG O2 Content 14.1 % vol (15-22) L 04/30/17 20:15 ABG Base Excess 1.7 meq/l (-2-2) 04/30/17 20:15 CBCD WBC 12.8 K/mm3 (4.0-10.0) H D 04/30/17 20:09 RBC 4.33 M/mm3 (4.00-5.60) D 04/30/17 20:09 Hgb 10.8 GM/dL (11.7-16.9) L D 04/30/17 20:09 Hct 35.0 % (35.4-49) L D 04/30/17 20:09 MCV 80.9 fl (80-96) 04/30/17 20:09 MCHC 30.9 g/dl (32.0-35.9) L 04/30/17 20:09 RDW 18.0 % (11.9-15.9) H 04/30/17 20:09 Plt Count 205 K/MM3 (134-434) D 04/30/17 20:09 MPV 8.8 fl (7.5-11.1) 04/30/17 20:09 CMP Sodium 137 mmol/L (136-145) 04/30/17 20:09 Potassium 3.3 mmol/L (3.5-5.1) L 04/30/17 20:09 Chloride 96 mmol/L (98-107) L 04/30/17 20:09 Carbon Dioxide 28 mmol/L (21-32) D 04/30/17 20:09 Anion Gap 13 (8-16) 04/30/17 20:09 BUN 26 mg/dL (7-18) H D 04/30/17 20:09 Creatinine 1.2 mg/dL (0.7-1.3) D 04/30/17 20:09 Creat Clearance w eGFR 59.68 (>60) 04/30/17 20:09 Random Glucose 463 mg/dL (74-106) H* D 04/30/17 20:09 Calcium 10.2 mg/dL (8.5-10.1) H D 04/30/17 20:09 Total Bilirubin 0.5 mg/dL (0.2-1.0) D 04/30/17 20:09 AST 296 U/L (15-37) H D 04/30/17 20:09 ALT 229 U/L (12-78) H D 04/30/17 20:09 Alkaline Phosphatase 68 U/L (45-117) D 04/30/17 20:09 Total Protein 5.4 g/dl (6.4-8.2) L 04/30/17 20:09 Albumin 2.6 g/dl (3.4-5.0) L 04/30/17 20:09 CARDIAC ENZYMES Creatine Kinase 57 IU/L (39-308) 04/30/17 20:09 Troponin I 0.07 ng/ml (0.00-0.05) H D 04/30/17 20:09
[2017-05-01] MEDS ORDERED: POTASSIUM CHLORIDE 20 MEQ PREMIX IVPB 100 ML IVPB ONE (05:45)
[2017-05-01] MEDS: SODIUM CHLORIDE 1,000 ML IV SCH (06:00)
[2017-05-01 06:05] LABS: BASO % 0.5 % (0-2.0); EOS % 0.1 % (0-4.5); HEMATOCRIT 33.9 % (35.4-49); HEMOGLOBIN 10.7 GM/dL (11.7-16.9); LYMPH % 8.4 % (8-40); MCH 24.9 pg (25.7-33.7); MCHC 31.6 g/dl (32.0-35.9); MEAN CELL VOLUME 78.7 fl (80-96); MEAN PLT VOLUME 8.5 fl (7.5-11.1); MONO % 6.5 % (3.8-10.2); NEUT % 84.5 % (42.8-82.8); PLATELET COUNT 200 K/MM3 (134-434); RDW 17.9 % (11.9-15.9); WHITE BLOOD COUNT 11.9 K/mm3 (4.0-10.0)
[2017-05-01] MEDS: CHLORHEXIDINE GLUCONATE 4% CLEANSER FOR DECOLONIZATION TP SCH ×2 (06:18→22:00)
[2017-05-01] MEDS: MUPIROCIN 2% TOPICAL OINTMENT FOR DECOLONIZATION NS SCH ×2 (06:18→10:03)
[2017-05-01] MEDS ORDERED: KCL 10 MEQ IVPB 10 MEQ/100 ML INFUS.BAG IVPB ONE ×2 (06:21→07:47)
[2017-05-01 06:29] LABS: ALBUMIN 3.1 g/dl (3.4-5.0); ALK PHOS 68 U/L (45-117); ANION GAP 10 (8-16); BILIRUBIN,TOTAL 0.7 mg/dL (0.2-1.0); BLOOD UREA NITROGEN 29 mg/dL (7-18); CALCIUM 9.2 mg/dL (8.5-10.1); CHLORIDE 101 mmol/L (98-107); CO2 30 mmol/L (21-32); CREATININE 0.9 mg/dL (0.7-1.3); GLUCOSE,RANDOM 118 mg/dL (74-106); POTASSIUM 3.8 mmol/L (3.5-5.1); SGOT/AST 137 U/L (15-37); SGPT/ALT 213 U/L (12-78); SODIUM 141 mmol/L (136-145); TOT PROT 5.7 g/dl (6.4-8.2)
[2017-05-01] MEDS: KCL 10 MEQ IVPB 10 MEQ/100 ML INFUS.BAG IVPB SCH ×2 (06:29→08:31)
[2017-05-01 06:37] LABS: ARTERIAL BLD GAS O2 SATURATION 99.5 % (90-98.9); ARTERIAL BLOOD GAS BASE EXCESS 3.9 meq/l (-2-2); ARTERIAL BLOOD GAS PCO2 44.6 mmHg (35-45); ARTERIAL BLOOD GAS pH 7.42 (7.35-7.45)
[2017-05-01 06:38] LABS: ALLENS TEST POSITIVE
[2017-05-01] MEDS ORDERED: ACETAMINOPHEN INJECTION 100 ML IVPB ONE (08:44)
--- NOTE | 2017-05-01 09:54 | HP ---
Admitting History and Physical - Admission History of Present Illness: 71 y/o M w/ PMH tracheostomy (vent dependent), COPD, DM2 (uncontrolled), [place] s/ p CABG with Ao valve replacement 2012, s/p PPM HTN, HLD who was BIBEMS with hypoxia. Pt was unresponsive and pulseless on arrival. Per family, pt had his trach cuff deflated and re-inflated today after which pt began to desaturate. BGM at home was 220. Pt's family gave some long-acting insulin at home. Pt did not improve and was brought to ED. En route pt received 2 Epi, 1 dose Amio, and 1 amp bicarb. On arriving, pt was in PEA and unresponsive. Compressions were started at 7:30. ROSC was achieved at 7:40. Pt still unresponsive. Bedside cardiac echo did not reveal tamponade. PT WAS SEEN IN ER SONS AT BEDSIDE UNRESPONSIVE ON VENT - Past Medical History Cardiovascular: Yes: Aortic Insufficiency, CAD ([place] in 2012 -> CABG ), HTN, Hyperlipdemia, [place], Other (s/p aortic valve replacement in 2012) Pulmonary: Yes: COPD, O2 Dependent (since 2012), Other (trache and vent dependent) - Past Surgical History Past Surgical History: Yes: AICD, CABG (in 2012), Cholecystectomy, Hernia Repair (right groin), Valve Replacement (in 2012) - Advance Directives Advance Directives: Yes: Health Care Proxy - Smoking History Smoking history: Unknown if ever smoked Have you smoked in the past 12 months: No If you are a former smoker, when did you quit?: 2013 - Alcohol/Substance Use Hx Alcohol Use: No History of Substance Use: reports: None - Social History ADL: Support Services 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 History of Recent Travel: No Home Medications - Allergies Allergies/Adverse Reactions: Allergies Allergy/AdvReac Type Severity Reaction Status Date / Time No Known Allergies Allergy Verified 05/01/17 07:15 - Home Medications Home Medications: Ambulatory Orders Pantoprazole Sodium [Protonix -] 20 mg PO DAILY 08/14/15 Acetaminophen [Tylenol .Regular Strength -] 650 mg PO Q6H PRN #0 tablet Albuterol 2.5/Ipratropium 0.5 [Duoneb -] 1 amp NEB Q6H PRN #0 amp 03/05/16 Alprazolam [Xanax] 0.25 mg PO Q8H PRN #90 tablet MDD 3 03/05/16 Amino Acids/Protein Hydrolys [Prostat Sugar-Free Packet -] 30 ml PO BID@0800, 1730 #60 packet 03/05/16 Aspirin [ASA -] 81 mg PO DAILY #30 tab.chew 03/05/16 Atorvastatin Ca [Lipitor] 10 mg PO HS #30 tablet 03/05/16 Cefuroxime Axetil [Ceftin -] 500 mg PO BID #4 tablet 03/05/16 Ferrous Sulfate [Ferosul] 300 mg PO DAILY #1 bottle 03/05/16 Furosemide [Lasix -] 20 mg PO BID@0600,1400 #60 tablet 03/05/16 Insulin Detemir [Levemir Flextouch] 5 unit SQ DAILY #1 syringe 03/05/16 Isopropyl Alcohol [Alcoh-Wipe] 1 each BID #1 box 03/05/16 Lancets/Blood Glucose Strips [Fora [id number] Strp-Lnct] 1 each BID #1 combo..pkg 03/05/16 Metformin HCl [Glucophage -] 500 mg PO BID@0700,1630 #60 tablet 03/05/16 Metoprolol Succinate [Toprol XL -] 12.5 mg PO BID #60 tab.sr.24h 03/05/16 Miscellaneous Medical Supply [Glucometer Device] 1 each UTJ BID #1 kit 03/05/16 Multivitamins [Multivit ([facility] Formulary)] 1 tab PO DAILY #30 tab 03/05/16 Prednisone [Deltasone -] 7.5 mg PO DAILY #30 tablet 03/05/16 Sennosides [Senna -] 1 tab PO BID #60 tablet 03/05/16 Tamsulosin HCl [Flomax -] 0.4 mg PO DAILY@0830 #30 cap.er.24h 03/05/16 Family Disease History - Family Disease History Family Disease History: Other: Son (alive and well) Physical Examination Vital Signs: Vital Signs Temperature 100.0 F H 05/01/17 08:02 Pulse Rate 84 05/01/17 08:02 Respiratory Rate 22 05/01/17 08:02 Blood Pressure 120/60 05/01/17 08:02 O2 Sat by Pulse Oximetry (%) 100 05/01/17 08:02 Cardiovascular: Yes: S1, S2 Respiratory: Yes: Mechanically Ventilated Gastrointestinal: Yes: Normal Bowel Sounds, Soft Neurological: Yes: Unresponsive Labs: CBC, BMP 05/01/17 05:50 05/01/17 05:50 Problem List - Problems (1) Cardiac arrest Assessment/Plan: ICU MONITORING FOLLOW CE CARDIO CONSULT Code(s): I46.9 - CARDIAC ARREST, CAUSE UNSPECIFIED (2) Acute and chronic respiratory failure with hypercapnia Assessment/Plan: NEBS IV STEROIDS PULM CONSULT VENT SUPPORT Code(s): J96.22 - ACUTE AND CHRONIC RESPIRATORY FAILURE WITH HYPERCAPNIA (3) Anoxia Assessment/Plan: NEURO CONSULT Code(s): R09.02 - HYPOXEMIA
[2017-05-01] MEDS ORDERED: METOPROLOL SUCCINATE 25 MG TAB.SR.24H (FP) PO SCH (10:00)
[2017-05-01] MEDS ORDERED: ACETAMINOPHEN 1000 MG/100 ML VIAL (NON FORMULARY) IVPB ONE (10:11)
[2017-05-01] MEDS: ASPIRIN 81 MG CHEWABLE TABLETS NGT SCH (10:16)
--- NOTE | 2017-05-01 11:33 | CON.CARD ---
Cardiology Consult (text) - Consultation Consultation Note: Consultation Note: CC: hypoxia hpi: 71 m hx cad s/p [place] and cabg and bioAVR, htn, hld, ischemic cardiomyopathy , prior VF cardiac arrest 05/2015 now s/p ICD ([place]), paroxysmal atrial flutter (brief episodes in setting of sepsis, no AC initiated), copd on home 02 , chronic resp failure s/p trach, dm, here with hypoxia/PEA arrest. Per family pt had been doing well then yesterday trach collar deflated and pt was hypoxic. EMS called and when arrive pt in PEA arrest. Pulse regained. Currently maintaining bp. Sees dr pal for cardio. pmh: per hpi psh:per hpi social: former smoker, no etoh or illicits fam: unknown Ambulatory Orders Home Medications Medication Instructions Recorded Pantoprazole Sodium [Protonix -] 20 mg PO DAILY 08/14/15 Acetaminophen [Tylenol .Regular 650 mg PO Q6H PRN #0 tablet 03/05/16 Strength -] Albuterol 2.5/Ipratropium 0.5 1 amp NEB Q6H PRN #0 amp 03/05/16 [Duoneb -] Alprazolam [Xanax] 0.25 mg PO Q8H PRN #90 tablet MDD 3 03/05/16 Amino Acids/Protein Hydrolys 30 ml PO BID@0800,1730 #60 packet 03/05/16 [Prostat Sugar-Free Packet -] Aspirin [ASA -] 81 mg PO DAILY #30 tab.chew 03/05/16 Atorvastatin Ca [Lipitor] 10 mg PO HS #30 tablet 03/05/16 Cefuroxime Axetil [Ceftin -] 500 mg PO BID #4 tablet 03/05/16 Ferrous Sulfate [Ferosul] 300 mg PO DAILY #1 bottle 03/05/16 Furosemide [Lasix -] 20 mg PO BID@0600,1400 #60 tablet 03/05/16 Insulin Detemir [Levemir Flextouch] 5 unit SQ DAILY #1 syringe 03/05/16 Isopropyl Alcohol [Alcoh-Wipe] 1 each MC BID #1 box 03/05/16 Lancets/Blood Glucose Strips [Fora 1 each MC BID #1 combo..pkg 03/05/16 [id number] Strp-Lnct] Metformin HCl [Glucophage -] 500 mg PO BID@0700,1630 #60 tablet 03/05/16 Metoprolol Succinate [Toprol XL -] 12.5 mg PO BID #60 tab.sr.24h 03/05/16 Miscellaneous Medical Supply 1 each SCJ BID #1 kit 03/05/16 [Glucometer Device] Multivitamins [Multivit ([facility] 1 tab PO DAILY #30 tab 03/05/16 Formulary)] Prednisone [Deltasone -] 7.5 mg PO DAILY #30 tablet 03/05/16 Sennosides [Senna -] 1 tab PO BID #60 tablet 03/05/16 Tamsulosin HCl [Flomax -] 0.4 mg PO DAILY@0830 #30 cap.er.24h 03/05/16 Vital Signs Temp 99.4 F 05/01/17 11:00 Pulse 80 05/01/17 11:00 Resp 18 05/01/17 11:00 BP 98/55 05/01/17 11:00 Pulse Ox 100 05/01/17 09:58 Intake & Output 04/30/17 04/30/17 05/01/17 11:59 23:59 11:59 Output Total 60 Balance -60 Weight 180 lb Output: Urine 60 Cooper 60 Other: Voiding Method Indwelling Catheter Indwelling Catheter Height 5 ft 7 in Body Mass Index (BMI) 28.1 Weight Measurement Method Estimated by Staff NAD, calm, on mechanical ventilation JVD flat, neck supple diminished bs RRR nl s1, s2. no m/r/g + bs soft, no distension no le e/c/c pos dp/pt no jaundice, diaphoresis sedated Laboratory Last Values WBC 11.9 K/mm3 (4.0-10.0) H 05/01/17 05:50 RBC 4.30 M/mm3 (4.00-5.60) 05/01/17 05:50 Hgb 10.7 GM/dL (11.7-16.9) L 05/01/17 05:50 Hct 33.9 % (35.4-49) L 05/01/17 05:50 MCV 78.7 fl (80-96) L 05/01/17 05:50 MCH 24.9 pg (25.7-33.7) L 05/01/17 05:50 MCHC 31.6 g/dl (32.0-35.9) L 05/01/17 05:50 RDW 17.9 % (11.9-15.9) H 05/01/17 05:50 Plt Count 200 K/MM3 (134-434) 05/01/17 05:50 MPV 8.5 fl (7.5-11.1) 05/01/17 05:50 Neutrophils % 84.5 % (42.8-82.8) H D 05/01/17 05:50 Neutrophils % (Manual) 56.6 % (42.8-82.8) 04/30/17 20:09 Band Neutrophils % 0.0 % 04/30/17 20:09 Lymphocytes % 8.4 % (8-40) D 05/01/17 05:50 Lymphocytes % (Manual) 28.3 % (8-40) 04/30/17 20:09 Monocytes % 6.5 % (3.8-10.2) 05/01/17 05:50 Monocytes % (Manual) 3 % (3.8-10.2) L 04/30/17 20:09 Eosinophils % 0.1 % (0-4.5) D 05/01/17 05:50 Eosinophils % (Manual) 0.0 % (0-4.5) 04/30/17 20:09 Basophils % 0.5 % (0-2.0) 05/01/17 05:50 Basophils % (Manual) 0.0 % (0-2.0) 04/30/17 20:09 Myelocytes % (Man) 4 % (0-2) H 04/30/17 20:09 Metamyelocytes 2 % (0-2) 04/30/17 20:09 PT with INR 14.70 SEC (9.98-11.88) H 04/30/17 20:09 INR 1.30 (0.82-1.09) H D 04/30/17 20:09 PTT (Actin FS) > 400.0 SECONDS (26.9-34.4) H 04/30/17 20:09 Puncture Site Right radial 05/01/17 06:30 ABG pH 7.42 (7.35-7.45) D 05/01/17 06:30 ABG pCO2 at Pt Temp 44.6 mmHg (35-45) D 05/01/17 06:30 ABG pO2 at Pt Temp 162.0 mmHg (70-100) H* D 05/01/17 06:30 ABG HCO3 28.4 meq/L (22-26) H 05/01/17 06:30 ABG O2 Sat (Measured) 99.5 % (90-98.9) H 05/01/17 06:30 ABG O2 Content 15.1 % vol (15-22) 05/01/17 06:30 ABG Base Excess 3.9 meq/l (-2-2) H 05/01/17 06:30 Rashel Test Positive 05/01/17 06:30 Carboxyhemoglobin 1.0 gm% (0.5-2.0) 04/30/17 20:15 Methemoglobin 0.7 % (0.4-1.5) 04/30/17 20:15 O2 Delivery Device Mech vent 05/01/17 06:30 Oxygen Flow Rate 50% 05/01/17 06:30 Vent Mode A/c 05/01/17 06:30 Vent Rate 24 05/01/17 06:30 Mechanical Rate Yes 05/01/17 06:30 PEEP 5.0 cmH2O 05/01/17 06:30 Pressure Support Vent 450 05/01/17 06:30 Sodium 141 mmol/L (136-145) 05/01/17 05:50 Potassium 3.8 mmol/L (3.5-5.1) 05/01/17 05:50 Chloride 101 mmol/L (98-107) 05/01/17 05:50 Carbon Dioxide 30 mmol/L (21-32) 05/01/17 05:50 Anion Gap 10 (8-16) 05/01/17 05:50 BUN 29 mg/dL (7-18) H 05/01/17 05:50 Creatinine 0.9 mg/dL (0.7-1.3) D 05/01/17 05:50 Creat Clearance w eGFR > 60 (>60) 05/01/17 05:50 Random Glucose 118 mg/dL (74-106) H D 05/01/17 05:50 Hemoglobin A1c % 5.7 % (4.8-6.0) D 05/01/17 05:50 Lactic Acid 1.2 mmol/L (0.4-2.0) 05/01/17 08:30 Calcium 9.2 mg/dL (8.5-10.1) 05/01/17 05:50 Phosphorus 6.8 mg/dL (2.5-4.9) H D 04/30/17 20:09 Magnesium 1.8 mg/dL (1.8-2.4) 04/30/17 20:09 Total Bilirubin 0.7 mg/dL (0.2-1.0) D 05/01/17 05:50 AST 137 U/L (15-37) H D 05/01/17 05:50 ALT 213 U/L (12-78) H 05/01/17 05:50 Alkaline Phosphatase 68 U/L (45-117) 05/01/17 05:50 Creatine Kinase 72 IU/L (39-308) 05/01/17 03:25 Troponin I 0.39 ng/ml (0.00-0.05) H 05/01/17 08:30 B-Natriuretic Peptide 1026.58 pg/ml (5-125) H 04/30/17 20:09 Total Protein 5.7 g/dl (6.4-8.2) L 05/01/17 05:50 Albumin 3.1 g/dl (3.4-5.0) L 05/01/17 05:50 ecg 04/30/17: sr, pvcs, nl intervals, twi ant/lat, no st changes cxr: clear lungs CXR: small right pleural effusion with underlying atelectasis vs. early infiltrate. mibi 12/2014: no ischemia, large michelle apical and septal scars, lvef 38% mibi 03/2012: large anteroapical, apical , inferior, septal scars, cannot exclude mild septal ischemia, lvef mildly reduced Echo 05/11: very TDS; severely decr LVEF, can't assess RWMAs; RV tds; valve fxn WNL Cath 05/2015 MSH: 3vd with patent DHALIWAL-LAD and SVG-RCA est cct 35 mins a/p: 71 m hx cad s/p [place] and cabg and bioAVR, htn, hld, ischemic cardiomyopathy , prior VF cardiac arrest 05/2015 now s/p ICD ([place]), paroxysmal atrial flutter (brief episodes in setting of sepsis, no AC initiated), copd on home 02 , chronic resp failure s/p trach, dm, here with hypoxia/PEA arrest. pea arrest: -based on hx seems pt's trach became dislodged and he became hypoxic which led to PEA arrest -no signs acs or chf -cont ICU care -check echo -monitor tele -Patient has ICD ([employer]) and will arrange for interrogation but this device is meant for VT/VF and would not treat PEA. hypotension: -bp mildly low -likely due to cardiac arrest -has not required pressors, monitor for now COPD/chronic resp failure: -s/p trach, with mechanical ventilation requirement cad s/p [place], cabg: - no signs acs-->trop borderline elevated with flat trend and nl ck, not c/w acs - ecg with new twis, likely from cardiac arrest, monitor with repeat ecg - no obstructive dz at cath 06/11 - on statin, asa ischemic cardiomyopathy with h/o VF s/p ICD - holding BB, MARY while acutely hypotensive - family denies recent ICD shocks, has remote monitoring being done via EP at [facility]--hailee armendariz - electrolyte repletion prn. parox atrial flutter on prior admission with sepsis - episodes were brief and patient was not placed on director long term care anticoagulation. monitor tele for now s/p bioAVR -done in 2012 at time of CABG -TDS echo in past (not helpful for valve fxn)-->will check updated echo here
--- NOTE | 2017-05-01 13:28 | EKG ---
Test Reason : Blood Pressure : / mmHG Vent. Rate : 068 BPM Atrial Rate : 068 BPM P-R Int : 176 ms QRS Dur : 142 ms QT Int : 418 ms P-R-T Axes : 088 -66 088 degrees QTc Int : 444 ms POOR DATA QUALITY, INTERPRETATION MAY BE ADVERSELY AFFECTED SINUS RHYTHM WITH OCCASIONAL PREMATURE VENTRICULAR COMPLEXES WITH 1ST DEGREE A-V BLOCK LEFT AXIS DEVIATION NON-SPECIFIC INTRA-VENTRICULAR CONDUCTION BLOCK INFERIOR INFARCT , AGE UNDETERMINED MARKED T WAVE ABNORMALITY, CONSIDER ANTEROLATERAL ISCHEMIA ABNORMAL ECG Confirmed by ZAINAB JORGE MD ([id number]) on 05/01/2017 1:28:10 PM Referred By: Confirmed By:ZAINAB JORGE MD
[2017-05-01] MEDS ORDERED: ALBUTEROL SO4 0.083% IH SOL 2.5 MG/3 ML VIAL.NEB. NEB ONE ×2 (16:54→17:17)
[2017-05-01] MEDS ORDERED: MIDAZOLAM HCL 5 MG/1 ML Single Dose Vial ONE (17:04)
[2017-05-01] MEDS ORDERED: ROCURONIUM BROMIDE 50 MG/5 ML VIAL IV ONE (17:05)
[2017-05-01] MEDS ORDERED: MIDAZOLAM HCL 2 MG/2 ML SINGLE DOSE VIAL IVPUSH ONE (17:05)
[2017-05-01] MEDS ORDERED: VECURONIUM BROMIDE 10 MG VIAL ONE (17:06)
--- NOTE | 2017-05-01 17:28 | CONSULT ---
Consult - text type - Consultation Consultation Note: NEUROLOGY CONSULTATION is greatly appreciated: Events reviewed and discuss with fitness trainer. This 71 yo man with multiple medical problems and advanced COPD is ventilator dependent but active and ambulatory at home. Today had trache cuff dysfunction leading to hypoventilation and cardiorespiratory arrest. Twice resuscitated. Now in ICU-not yet sedated. Exam: Unresponsive to name or sternal pain. Over-breathing the ventilator. Right pupil 4 mm left 1 1/2- neither reactive to light. 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 Flaccid areflexic tetraplegia. IMP: Severe, B/L cerebral dysfunction with brainstem function present. c/w Severe anoxic encephalopathy. SUGGEST: Continue conservative Rx and supportive care. Will follow with you. Prognosis guarded. Thank you very much, Kyle Ross MD
[2017-05-01 17:37] LABS: ARTERIAL BLD GAS O2 SATURATION 98.3 % (90-98.9); ARTERIAL BLOOD GAS BASE EXCESS 0.8 meq/l (-2-2); ARTERIAL BLOOD GAS pH 7.27 (7.35-7.45)
[2017-05-01] MEDS: methylPREDNISolone NA SUCC 125 MG/2 ML VIAL IVPB SCH (18:31)
[2017-05-01] MEDS: PROPOFOL 1,000,000 MCG/100 ML VIAL IVPB SCH (18:43)
--- NOTE | 2017-05-01 21:12 | CONSULT ---
Consult Consult Specialty:: PULM/CCM Referred by:: Dr. Lino Adams Reason for Consultation:: A on C Resp Fail S/p Cardiac Arrest - History of Present Illness Chief Complaint: Anoxic Brain Injury History of Present Illness: Mr. Doshi is a 71 y/o man w/ HTN, HLD, COPD, Trach, VDRF, uncontrolled DM2, NV s/p CABG w/ Aortic valve replacement in 2012, s/p PPM, AICD (2015), BIBA today in cardiac arrest, CPR in progress. Family reports pt desaturated & then cardiac arrest in the setting of routine trach cuff inflate/deflate adjustment. Family dialed 911. A/p EMS: Pt found down uncon/unresp in cardiac arrest, en route pt received 2 Epi, 1 dose Amio, and 1 amp bicarb. Pt received in the ED in [facility] --> 2 CaCl, 1 amp D50, 10 units Ins, 3 Epi, --> ROSC achieved @ 0740 w/o mental status, pt started on Hep drip. In ED: Labs significant for WBC 12, K 3.3 , rand glucose 463 (BGM 220 en route to hospital), gap 13, AST 296, ALT 229, Tn 0.07, BNP 1026, INR 1.30. Pt admitted to the ICU now s/p cardiac arrest w/ A on C resp Fail, MSOF, & anoxic brain injury. - History Source History Provided By: Medical Record Limitations to Obtaining History: Clinical Condition - Past Medical History Cardio/Vascular: Yes: Aortic Insufficiency, CAD (NV in 2012 -> CABG ), HTN, Hyperlipdemia, NV, Other (s/p aortic valve replacement in 2012) Pulmonary: Yes: COPD, O2 Dependent (since 2012), Other (trache and vent dependent) - Past Surgical History Past Surgical History: Yes: AICD, CABG (in 2012), Cholecystectomy, Hernia Repair (right groin), Valve Replacement (in 2012) - Alcohol/Substance Use Hx Alcohol Use: No History of Substance Use: reports: None - Smoking History Smoking history: Unknown if ever smoked Have you smoked in the past 12 months: No If you are a former smoker, when did you quit?: 2013 - Social History Usual Living Arrangement: Other ([facility]) ADL: Support Services 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 History of Recent Travel: No Home Medications - Allergies Allergies/Adverse Reactions: Allergies Allergy/AdvReac Type Severity Reaction Status Date / Time No Known Allergies Allergy Verified 05/01/17 07:15 - Home Medications Home Medications: Ambulatory Orders Pantoprazole Sodium [Protonix -] 20 mg PO DAILY 08/14/15 Acetaminophen [Tylenol .Regular Strength -] 650 mg PO Q6H PRN #0 tablet Albuterol 2.5/Ipratropium 0.5 [Duoneb -] 1 amp NEB Q6H PRN #0 amp 03/05/16 Alprazolam [Xanax] 0.25 mg PO Q8H PRN #90 tablet MDD 3 03/05/16 Amino Acids/Protein Hydrolys [Prostat Sugar-Free Packet -] 30 ml PO BID@0800, 1730 #60 packet 03/05/16 Aspirin [ASA -] 81 mg PO DAILY #30 tab.chew 03/05/16 Atorvastatin Ca [Lipitor] 10 mg PO HS #30 tablet 03/05/16 Cefuroxime Axetil [Ceftin -] 500 mg PO BID #4 tablet 03/05/16 Ferrous Sulfate [Ferosul] 300 mg PO DAILY #1 bottle 03/05/16 Furosemide [Lasix -] 20 mg PO BID@0600,1400 #60 tablet 03/05/16 Insulin Detemir [Levemir Flextouch] 5 unit SQ DAILY #1 syringe 03/05/16 Isopropyl Alcohol [Alcoh-Wipe] 1 each BID #1 box 03/05/16 Lancets/Blood Glucose Strips [Fora [id number] Strp-Lnct] 1 each BID #1 combo..pkg 03/05/16 Metformin HCl [Glucophage -] 500 mg PO BID@0700,1630 #60 tablet 03/05/16 Metoprolol Succinate [Toprol XL -] 12.5 mg PO BID #60 tab.sr.24h 03/05/16 Miscellaneous Medical Supply [Glucometer Device] 1 each [facility] [place] BID #1 kit 03/05/16 Multivitamins [Multivit (RH Formulary)] 1 tab PO DAILY #30 tab 03/05/16 Prednisone [Deltasone -] 7.5 mg PO DAILY #30 tablet 03/05/16 Sennosides [Senna -] 1 tab PO BID #60 tablet 03/05/16 Tamsulosin HCl [Flomax -] 0.4 mg PO DAILY@0830 #30 cap.er.24h 03/05/16 Family Disease History - Family Disease History Family History: Unable to Obtain (UNCON/UNRESP on the VENT) Family Disease History: Other: Son (alive and well) Review of Systems Unable to obtain ROS, reason: UNCON/UNRESP on the VENT Physical Exam Vital Signs: Vital Signs Temperature 99.4 F 05/01/17 16:00 Pulse Rate 78 05/01/17 16:00 Respiratory Rate 24 05/01/17 19:05 Blood Pressure 125/78 05/01/17 16:00 O2 Sat by Pulse Oximetry (%) 100 05/01/17 16:00 Intake & Output 04/29/17 04/30/17 05/01/17 05/02/17 23:59 23:59 23:59 23:59 Output Total 60 750 Balance -60 -750 Weight 81.647 kg 81.647 kg Constitutional: Yes: Cachectic, Poor Hygeine, Thin Eyes: Yes: Other (NO REACTION. NO CORNEAL REFLEXES.) HENT: Yes: WNL, Atraumatic, Normocephalic Neck: Yes: WNL, Supple, Trachea Midline Cardiovascular: Yes: WNL Respiratory: Yes: Intubated, Mechanically Ventilated Gastrointestinal: Yes: Soft, Hypoactive Bowel Sounds ...Rectal Exam: Yes: Deferred Renal/: Yes: WNL Breast(s): Yes: WNL Musculoskeletal: Yes: WNL Extremities: Yes: WNL Edema: No Peripheral Pulses WNL: Yes Integumentary: Yes: WNL Neurological: Yes: Unresponsive ...Motor Strength: WNL Psychiatric: Yes: WNL Labs: CBC, BMP 05/01/17 05:50 05/01/17 05:50 ABG Results ABG pH 7.36 (7.35-7.45) 05/01/17 23:30 ABG pCO2 at Pt Temp 44.3 mmHg (35-45) D 05/01/17 23:30 ABG pO2 at Pt Temp 152.0 mmHg (70-100) H* 05/01/17 23:30 ABG HCO3 24.3 meq/L (22-26) 05/01/17 23:30 ABG O2 Sat (Measured) 99.3 % (90-98.9) H 05/01/17 23:30 ABG O2 Content 15.1 % vol (15-22) 05/01/17 23:30 ABG Base Excess -0.7 meq/l (-2-2) 05/01/17 23:30 Troponin, BNP 05/01/17 05/01/17 03:25 08:30 Troponin I 0.49 H D 0.39 H Microbiology 04/30/17 22:52 Blood - Peripheral Venous Blood Culture - Preliminary NO GROWTH OBTAINED AFTER 24 HOURS, INCUBATION TO CONTINUE FOR 4 DAYS. 04/30/17 22:52 Blood - Peripheral Venous Blood Culture - Preliminary NO GROWTH OBTAINED AFTER 24 HOURS, INCUBATION TO CONTINUE FOR 4 DAYS. Imaging - Results X-ray: Image Reviewed (04/30: Sternotomy wires, otherwise clear (My Read).) EKG: Image Reviewed (12 LEAD 04/30: RSR in the 60's w/ occ PVCs, QRS is wide @ 142ms, L axis deviation, intraventricular block, qu'ed out in II, III, & AVF c/ f inferior infarction, flipped T's in V1, V2, V3, V4, V5, & V6 c/f anterolateral ischemia, QTc 444ms, Post Cardiac Arrest EKG THIS PATIENT HAS JUST HAD AN NV (My Read).) Problem List - Problems (1) Cardiac arrest Code(s): I46.9 - CARDIAC ARREST, CAUSE UNSPECIFIED (2) Acute and chronic respiratory failure with hypercapnia Code(s): J96.22 - ACUTE AND CHRONIC RESPIRATORY FAILURE WITH HYPERCAPNIA (3) Anoxia Code(s): R09.02 - HYPOXEMIA (4) CAD (coronary artery disease) Code(s): I25.10 - ATHSCL HEART DISEASE OF [place] CORONARY ARTERY W/O ANG PCTRS (5) COPD (chronic obstructive pulmonary disease) Code(s): J44.9 - CHRONIC OBSTRUCTIVE PULMONARY DISEASE, UNSPECIFIED Qualifiers: Emphysema type: unspecified (6) Elevated LFTs Code(s): R79.89 - OTHER SPECIFIED ABNORMAL FINDINGS OF BLOOD CHEMISTRY (7) Ventilator dependence Code(s): Z99.11 - DEPENDENCE ON RESPIRATOR [VENTILATOR] STATUS (8) Uncontrolled diabetes mellitus Code(s): E11.65 - TYPE 2 DIABETES MELLITUS WITH HYPERGLYCEMIA Qualifiers: Diabetes mellitus type: type 2 (9) Respiratory failure Code(s): J96.90 - RESPIRATORY FAILURE, UNSP, UNSP W HYPOXIA OR HYPERCAPNIA Qualifiers: Chronicity: acute on chronic Assessment/Plan ASSESS: This is a 71 y/o man w/ a PMHx/o: NV(2012), s/p Aortic Valve Replacement (2012), CABG, HTN, HLD, COPD, Trach, VDRF. Admitted to ICU for s/p Cardiac Arrest, Acute Respiratory Failure, Hypercapnia. PLAN: -NPO for now -Vent Support -Nebs -Wean FiO2 as tolerated -Gayle Clxr -Surveillance swabs -U Ags -Abx -ID -D/c all anti-HTN meds -Trend Cardiac enzymes -Trend LA -Heparin gtt -ASA -Place CVC -Trend CVP -Press for a MAP of 65 -Continue Lipitor -CARDS Consult -Strict I's & O's -Trend BUN/Cr -Replete e-lytes prn -FSs -Insulin prn -PPI -SCDs -Pt is moribund --> Stat PAll Care Consult -Family meeting DGL ACN-[facility] ICU PULM/CCM [id number] Critical Care Time/MDM Note Total Critical Care Time: 40 Critical Care Statement: The care of this patient involved high complexity decision making to prevent further life threatening deterioration of the patient 's condition and/or to evaluate & treat vital organ system(s) failure or risk of failure.
[2017-05-01] MEDS ORDERED: PT OWN MED DRAWER 7, Y5N ONE (21:42)
[2017-05-01] MEDS: ATORVASTATIN CA 10 MG TABLET (FP) NGT SCH (22:00)
--- NOTE | 2017-05-01 22:58 | PROC ---
Central Line Insertion Indication: CVP Monitoring, Vasopressor Risks and Benefits Explained: Yes Consent on Chart: Yes Central Line: Triple Lumen Catheter Anesthesia: 1% Lidocaine Sterile Technique: Yes Ultrasound Guided Assistance: Yes Position: Right Internal Jugular Post Insertion: Yes: Bilateral Breath Sounds, Bilateral Chest Expansion, Chest X-Ray Ordered Sterile Dressing Applied: Yes Remarks: Pt tolerated the procedure well. No Complications to report.
[2017-05-01] MEDS: HEPARIN - 25,000 UNIT in SODIUM CHLORIDE 495 ML IV SCH (23:00)
--- NOTE | 2017-05-01 23:02 | PROC ---
Procedure Note Procedure: [facility] ICU A-LINE INSERTION NOTE: INDICATION: Imminent hemodynamic instability in the setting of increasing sedation requirements & required frequent ABGs. CONSENT: Consent was secured from pt's Son Ken Doshi via telephone. PROCEDURE: L Hand. Rashel's test confirmed good arterial blood flow in both the radial & ulnar arteries. The L wrist was secured in position, prepped, & draped in the usual sterile fashion. TIME OUT The site was anesthetized w/ 3cc of 1% Lidocaine. A 20G needle was inserted into the L radial artery on the first attempt w/ pulsating bright red blood return. A 20G catheter was inserted into the artery via the Seldinger technique & the arterial line was connected. A good tracing & arterial waveform was confirmed. The catheter was secured in place w/ 2.0 Nylon sutures X2 and a sterile dressing was applied. Post procedure re-eval confirmed a pink warm L hand cap-refill < 2sec in all 5 R hand digits. Pt tolerated the procedure well. Andreas Alcaraz, ACNP-BC [id number] [facility] PULM / CCM
[2017-05-01] MEDS ORDERED: FENTANYL INJECTION 500 MCG in DEXTROSE 5%-WATER - 90 ML IVPB SCH (23:15)
[2017-05-01] MEDS ORDERED: MIDAZOLAM 100 MG in SODIUM CHLORIDE 100 ML IVPB SCH (23:15)
[2017-05-01] MEDS ORDERED: NOREPINEPHRINE BITARTRATE 4 MG/4 ML ML IV ONE (23:30)
[2017-05-01 23:39] LABS: ARTERIAL BLD GAS O2 SATURATION 99.3 % (90-98.9); ARTERIAL BLOOD GAS BASE EXCESS -0.7 meq/l (-2-2); ARTERIAL BLOOD GAS PCO2 44.3 mmHg (35-45); ARTERIAL BLOOD GAS pH 7.36 (7.35-7.45)
[2017-05-01 23:40] LABS: ALLENS TEST POSITIVE
[2017-05-01] MEDS ORDERED: NOREPINEPHRINE BITARTRATE 8,000 MCG in SODIUM CHLORIDE 0.45% 992 ML IV SCH (23:45)
[2017-05-01] MEDS: NOREPINEPHRINE BITARTRATE 8,000 MCG in DEXTROSE 5%-WATER - 492 ML IV SCH (23:45)
[2017-05-02] MEDS: methylPREDNISolone NA SUCC 125 MG/2 ML VIAL IVPB SCH ×3 (02:00→17:58)
[2017-05-02] MEDS: SODIUM CHLORIDE 1,000 ML IV SCH (05:00)
[2017-05-02] MEDS: ALBUTEROL SO4 2.5/IPRATROPIUM 0.5 INH SOL 3 ML VIAL.NEB. NEB PRN ×3 (06:01→11:35)
[2017-05-02 06:24] LABS: HEMATOCRIT 33.2 % (35.4-49); HEMOGLOBIN 10.5 GM/dL (11.7-16.9); MCH 25.2 pg (25.7-33.7); MCHC 31.7 g/dl (32.0-35.9); MEAN CELL VOLUME 79.6 fl (80-96); MEAN PLT VOLUME 8.8 fl (7.5-11.1); PLATELET COUNT 223 K/MM3 (134-434); RBC 4.18 M/mm3 (4.00-5.60); RDW 18.1 % (11.9-15.9)
[2017-05-02 06:52] LABS: ALBUMIN 2.9 g/dl (3.4-5.0); ANION GAP 11 (8-16); BLOOD UREA NITROGEN 33 mg/dL (7-18); CALCIUM 8.2 mg/dL (8.5-10.1); CHLORIDE 102 mmol/L (98-107); CO2 26 mmol/L (21-32); GLUCOSE,RANDOM 165 mg/dL (74-106); POTASSIUM 4.1 mmol/L (3.5-5.1); SGOT/AST 44 U/L (15-37); SODIUM 139 mmol/L (136-145)
[2017-05-02 06:54] LABS: ALK PHOS 69 U/L (45-117); BILIRUBIN,TOTAL 0.8 mg/dL (0.2-1.0); CREATININE 1.1 mg/dL (0.7-1.3); SGPT/ALT 141 U/L (12-78); TOT PROT 5.7 g/dl (6.4-8.2)
[2017-05-02] MEDS: MUPIROCIN 2% TOPICAL OINTMENT FOR DECOLONIZATION NS SCH ×3 (07:01→21:58)
--- NOTE | 2017-05-02 07:26 | PN ---
Progress Note (short form) - Note Progress Note: PULM/CCM Pt seen & Examined in the ICU. TLC & A-Line O/N. Briefly on pressors. ( Appreciate O/N Provider). Pt is sedated intubated on the vent. NEURO confirms anoxic brain injury. Active MEDs Albuterol/Ipratropium (Duoneb -) 1 amp NEB Q30M PRN PRN Reason: SHORTNESS OF BREATH Last Admin: 05/02/17 06:01 Dose: 1 amp Aspirin (Asa -) 81 mg NGT DAILY RICKY Last Admin: 05/01/17 10:16 Dose: 81 mg Atorvastatin Calcium (Lipitor -) 10 mg NGT HS RICKY Last Admin: 05/01/17 22:00 Dose: Not Given Chlorhexidine Gluconate (Hibiclens For Decolonization -) 1 applic TP HS RICKY Last Admin: 05/01/17 22:00 Dose: 1 applic Heparin Sodium (Porcine) 25, (000 unit/ Sodium Chloride) 500 mls @ 20 mls/hr IV TITR RICKY; 1,000 UNIT/HR PRN Reason: Protocol Last Admin: 05/01/17 23:00 Dose: 1,000 unit/hr, 20 mls/hr Sodium Chloride (Normal Saline -) 1,000 mls @ 100 mls/hr IV ASDIR RICKY Last Admin: 05/02/17 05:00 Dose: 100 mls/hr Propofol (Diprivan -) 1,000,000 mcg in 100 mls @ 2.449 mls/hr IVPB TITR RICKY; 5 MCG/KG/MIN PRN Reason: Protocol Last Admin: 05/01/17 18:43 Dose: 5 mcg/kg/min, 2.449 mls/hr Fentanyl 500 mcg/ Dextrose 100 mls @ 20 mls/hr IVPB TITR RICKY PRN Reason: 100 MCG/HR Last Admin: 05/02/17 07:17 Dose: Not Given Midazolam HCl 100 mg/ Sodium (Chloride) 100 mls @ 6 mls/hr IVPB TITR RICKY; 6 MG/ HR PRN Reason: Protocol Last Admin: 05/02/17 07:17 Dose: Not Given Norepinephrine Bitartrate 8, (000 mcg/ Dextrose) 500 mls @ 9.18 mls/hr IV ASDIR RICKY; 0.03 MCG/KG/MIN PRN Reason: Protocol Last Admin: 05/01/17 23:45 Dose: 0.03 mcg/kg/min, 9.18 mls/hr Methylprednisolone Sodium Succinate (Solu-Medrol -) 60 mg IVPB Q8H-IV RICKY Last Admin: 05/02/17 02:00 Dose: 60 mg Mupirocin (Bactroban Ointment (For Decolonization) -) 1 applic NS BID RICKY Stop: 05/05/17 21:59 Last Admin: 05/02/17 07:01 Dose: 1 applic V/S Period Temp Pulse Resp BP Sys/Jaramillo Pulse Ox Last 24 Hr 96.4 F-99.4 F 64-96 12-25 88-138/54-96 100-100 Intake & Output 04/29/17 04/30/17 05/01/17 05/02/17 23:59 23:59 23:59 23:59 Intake Total 1175 Output Total 60 750 200 Balance -60 -750 975 Weight 81.647 kg 81.647 kg GEN: Elderly man, trached, debilitated, VDRF HEENT: Pupils 3mm, no rxn, an-icteric, MMM, trach is midline & patent PULM: CTAB CV: nml S1 S2, RR, unable to appreciate any G/M/R ABD: + BS, S/S N/T N/D X4Q EXT: + Pulses, WWPX4, (-) edema CBC, BMP 05/02/17 05:25 05/02/17 05:25 Microbiology 04/30/17 22:52 Blood - Peripheral Venous Blood Culture - Preliminary NO GROWTH OBTAINED AFTER 24 HOURS, INCUBATION TO CONTINUE FOR 4 DAYS. 04/30/17 22:52 Blood - Peripheral Venous Blood Culture - Preliminary NO GROWTH OBTAINED AFTER 24 HOURS, INCUBATION TO CONTINUE FOR 4 DAYS. RECENT STUDIES TO NOTE: CXR 05/01: Image Reviewed (04/30: Sternotomy wires, otherwise clear (My Read).) EKG 04/30: Image Reviewed (12 LEAD 04/30: RSR in the 60's w/ occ PVCs, QRS is wide @ 142ms, L axis deviation, intraventricular block, qu'ed out in II, III, & AVF c /f inferior infarction, flipped T's in V1, V2, V3, V4, V5, & V6 c/f anterolateral ischemia, QTc 444ms, Post Cardiac Arrest EKG THIS PATIENT HAS JUST HAD AN CO (My Read).) ASSESS: This is a 71 y/o man w/ a PMHx/o: CO(2012), s/p Aortic Valve Replacement (2012), CABG, HTN, HLD, COPD, Trach, VDRF. Admitted to the ICU now w/ anoxic brain injury 2/2 Cardiac Arrest in the setting of acute Hypercapnic Respiratory Failure. PLAN: -NPO for now -Vent Support -Nebs -Wean Steroids -Wean FiO2 as tolerated -F/u Gayle Clxr -F/u Surveillance swabs -F/u U Ags -Abx -ID -Hold all anti-HTN meds -Trend Cardiac enzymes -Trend LA -Heparin gtt -ASA -Trend CVP -Press for a MAP of 65 -Continue Lipitor -CARDS Consult -Strict I's & O's -Trend BUN/Cr -Replete e-lytes prn -FSs -Insulin prn -PPI -SCDs -Pt is moribund --> Stat PAll Care Consult -Family meeting CCT 39" DG [facility]N-[facility] ICU PULM/CCM [id number] Critical Care Total Critical Care Time (in minutes): 39 Critical Care Statement: The care of this patient involved high complexity decision making to prevent further life threatening deterioration of the patient 's condition and/or to evaluate & treat vital organ system(s) failure or risk of failure. Problem List - Problems (1) Cardiac arrest Code(s): I46.9 - CARDIAC ARREST, CAUSE UNSPECIFIED (2) Acute and chronic respiratory failure with hypercapnia Code(s): J96.22 - ACUTE AND CHRONIC RESPIRATORY FAILURE WITH HYPERCAPNIA (3) Anoxia Code(s): R09.02 - HYPOXEMIA (4) CAD (coronary artery disease) Code(s): I25.10 - ATHSCL HEART DISEASE OF [place] CORONARY ARTERY W/O ANG PCTRS (5) COPD (chronic obstructive pulmonary disease) Code(s): J44.9 - CHRONIC OBSTRUCTIVE PULMONARY DISEASE, UNSPECIFIED Qualifiers: Emphysema type: unspecified (6) Elevated LFTs Code(s): R79.89 - OTHER SPECIFIED ABNORMAL FINDINGS OF BLOOD CHEMISTRY (7) Ventilator dependence Code(s): Z99.11 - DEPENDENCE ON RESPIRATOR [VENTILATOR] STATUS (8) Uncontrolled diabetes mellitus Code(s): E11.65 - TYPE 2 DIABETES MELLITUS WITH HYPERGLYCEMIA Qualifiers: Diabetes mellitus type: type 2 (9) Respiratory failure Code(s): J96.90 - RESPIRATORY FAILURE, UNSP, UNSP W HYPOXIA OR HYPERCAPNIA Qualifiers: Chronicity: acute on chronic
[2017-05-02] MEDS: ASPIRIN 81 MG CHEWABLE TABLETS NGT SCH (10:42)
[2017-05-02] MEDS: HEPARIN - 25,000 UNIT in SODIUM CHLORIDE 495 ML IV SCH (10:43)
--- NOTE | 2017-05-02 11:18 | PN ---
Progress Note (short form) - Note Progress Note: s: sedated on vent. on levo briefly overnight. anoxic brain injury per Neuro eval o: Vital Signs Temp 97.5 F L 05/02/17 10:00 Pulse 78 05/02/17 11:00 Resp 20 05/02/17 11:00 BP 98/62 05/02/17 11:00 Pulse Ox 100 05/01/17 20:00 Intake & Output 05/01/17 05/01/17 05/02/17 11:59 23:59 11:59 Intake Total 1175 Output Total 750 200 Balance -750 975 Weight 180 lb Intake: IV 1175 DIPRIVAN - 1,000,000 mcg 25 In 100 ml @ 5 MCG/KG/MIN 2.449 mls/hr IVPB TITR RICKY Rx#:[id number] Levophed - 8,000 Mcg In 150 D5w - 492 ml @ 0.03 MCG/ KG/MIN 9.18 mls/hr IV ASDIR RICKY Rx#:[id number] Normal Saline - 1,000 ml 1000 @ 100 mls/hr IV ASDIR RICKY Rx#:[id number] Output: Urine 750 200 Cooper 750 200 Other: Voiding Method Indwelling Catheter Indwelling Catheter Bowel Movement Yes # Bowel Movements 2 Height 5 ft 7 in Body Mass Index (BMI) 28.1 NAD, calm, on mechanical ventilation JVD flat, neck supple diminished bs RRR nl s1, s2. no m/r/g + bs soft, no distension no le e/c/c pos dp/pt no jaundice, diaphoresis sedated Current Medications Generic Name Dose Route Start Last Admin Trade Name Freq PRN Reason Stop Dose Admin Albuterol/Ipratropium 1 amp 05/01/17 17:06 05/02/17 06:01 Duoneb - NEB 1 amp Q30M PRN Administration SHORTNESS OF BREATH Aspirin 81 mg 05/01/17 10:00 05/02/17 10:42 Asa - NGT 81 mg DAILY RICKY Administration Atorvastatin Calcium 10 mg 05/01/17 22:00 05/01/17 22:00 Lipitor - NGT Not Given HS RICKY Chlorhexidine Gluconate 1 applic 04/30/17 22:00 05/01/17 22:00 Hibiclens For Decolonization - TP 1 applic HS RICKY Administration Sodium Chloride 1,000 mls @ 100 mls/hr 05/01/17 06:00 05/02/17 05:00 Normal Saline - IV 100 mls/hr ASDIR RICKY Administration Propofol 1,000,000 mcg in 100 mls @ 2.449 mls/hr 05/01/17 17:45 05/01/17 18: 43 Diprivan - IVPB 5 mcg/kg/min TITR RICKY 2.449 mls/hr Protocol Administration 5 MCG/KG/MIN Fentanyl 500 mcg/ Dextrose 100 mls @ 20 mls/hr 05/01/17 23:15 05/02/17 07:17 IVPB Not Given TITR RICKY 100 MCG/HR Midazolam HCl 100 mg/ Sodium 100 mls @ 6 mls/hr 05/01/17 23:15 05/02/17 07:17 Chloride IVPB Not Given TITR RICKY Protocol 6 MG/HR Norepinephrine Bitartrate 8, 500 mls @ 9.18 mls/hr 05/02/17 06:45 05/01/17 23 :45 000 mcg/ Dextrose IV 0.03 mcg/kg/min ASDIR RICKY 9.18 mls/hr Protocol Administration 0.03 MCG/KG/MIN Methylprednisolone Sodium Succinate 60 mg 05/01/17 18:00 05/02/17 10:42 Solu-Medrol - IVPB 60 mg Q8H-IV RICKY Administration Mupirocin 1 applic 04/30/17 22:00 05/02/17 10:43 Bactroban Ointment (For Decolonization) - NS 05/05/17 21:59 1 applic BID RICKY Administration Laboratory Last Values WBC 17.0 K/mm3 (4.0-10.0) H D 05/02/17 05:25 RBC 4.18 M/mm3 (4.00-5.60) 05/02/17 05:25 Hgb 10.5 GM/dL (11.7-16.9) L 05/02/17 05:25 Hct 33.2 % (35.4-49) L 05/02/17 05:25 MCV 79.6 fl (80-96) L 05/02/17 05:25 MCH 25.2 pg (25.7-33.7) L 05/02/17 05:25 MCHC 31.7 g/dl (32.0-35.9) L 05/02/17 05:25 RDW 18.1 % (11.9-15.9) H 05/02/17 05:25 Plt Count 223 K/MM3 (134-434) 05/02/17 05:25 MPV 8.8 fl (7.5-11.1) 05/02/17 05:25 Neutrophils % 84.5 % (42.8-82.8) H D 05/01/17 05:50 Neutrophils % (Manual) 56.6 % (42.8-82.8) 04/30/17 20:09 Band Neutrophils % 0.0 % 04/30/17 20:09 Lymphocytes % 8.4 % (8-40) D 05/01/17 05:50 Lymphocytes % (Manual) 28.3 % (8-40) 04/30/17 20:09 Monocytes % 6.5 % (3.8-10.2) 05/01/17 05:50 Monocytes % (Manual) 3 % (3.8-10.2) L 04/30/17 20:09 Eosinophils % 0.1 % (0-4.5) D 05/01/17 05:50 Eosinophils % (Manual) 0.0 % (0-4.5) 04/30/17 20:09 Basophils % 0.5 % (0-2.0) 05/01/17 05:50 Basophils % (Manual) 0.0 % (0-2.0) 04/30/17 20:09 Myelocytes % (Man) 4 % (0-2) H 04/30/17 20:09 Metamyelocytes 2 % (0-2) 04/30/17 20:09 PT with INR 14.70 SEC (9.98-11.88) H 04/30/17 20:09 INR 1.30 (0.82-1.09) H D 04/30/17 20:09 PTT (Actin FS) 42.9 SECONDS (26.9-34.4) H D 05/02/17 05:25 Anticoagulation Therapy No Result Required. 05/01/17 16:50 Puncture Site Arterial line 05/01/17 23:30 ABG pH 7.36 (7.35-7.45) 05/01/17 23:30 ABG pCO2 at Pt Temp 44.3 mmHg (35-45) D 05/01/17 23:30 ABG pO2 at Pt Temp 152.0 mmHg (70-100) H* 05/01/17 23:30 ABG HCO3 24.3 meq/L (22-26) 05/01/17 23:30 ABG O2 Sat (Measured) 99.3 % (90-98.9) H 05/01/17 23:30 ABG O2 Content 15.1 % vol (15-22) 05/01/17 23:30 ABG Base Excess -0.7 meq/l (-2-2) 05/01/17 23:30 Rashel Test Positive 05/01/17 23:30 Carboxyhemoglobin 1.0 gm% (0.5-2.0) 04/30/17 20:15 Methemoglobin 0.7 % (0.4-1.5) 04/30/17 20:15 O2 Delivery Device Mech vent 05/01/17 23:30 Oxygen Flow Rate 50% 05/01/17 23:30 Vent Mode A/c 05/01/17 23:30 Vent Rate 24 05/01/17 23:30 Mechanical Rate Yes 05/01/17 23:30 PEEP 8.0 cmH2O 05/01/17 23:30 Pressure Support Vent 450 05/01/17 23:30 Sodium 139 mmol/L (136-145) 05/02/17 05:25 Potassium 4.1 mmol/L (3.5-5.1) 05/02/17 05:25 Chloride 102 mmol/L (98-107) 05/02/17 05:25 Carbon Dioxide 26 mmol/L (21-32) 05/02/17 05:25 Anion Gap 11 (8-16) 05/02/17 05:25 BUN 33 mg/dL (7-18) H 05/02/17 05:25 Creatinine 1.1 mg/dL (0.7-1.3) D 05/02/17 05:25 Creat Clearance w eGFR > 60 (>60) 05/02/17 05:25 Random Glucose 165 mg/dL (74-106) H D 05/02/17 05:25 Hemoglobin A1c % 5.7 % (4.8-6.0) D 05/01/17 05:50 Lactic Acid 1.2 mmol/L (0.4-2.0) 05/01/17 08:30 Calcium 8.2 mg/dL (8.5-10.1) L 05/02/17 05:25 Phosphorus 6.8 mg/dL (2.5-4.9) H D 04/30/17 20:09 Magnesium 1.8 mg/dL (1.8-2.4) 04/30/17 20:09 Total Bilirubin 0.8 mg/dL (0.2-1.0) 05/02/17 05:25 AST 44 U/L (15-37) H D 05/02/17 05:25 ALT 141 U/L (12-78) H D 05/02/17 05:25 Alkaline Phosphatase 69 U/L (45-117) 05/02/17 05:25 Creatine Kinase 72 IU/L (39-308) 05/01/17 03:25 Troponin I 0.39 ng/ml (0.00-0.05) H 05/01/17 08:30 B-Natriuretic Peptide 1026.58 pg/ml (5-125) H 04/30/17 20:09 Total Protein 5.7 g/dl (6.4-8.2) L 05/02/17 05:25 Albumin 2.9 g/dl (3.4-5.0) L 05/02/17 05:25 tele: sr ecg 04/30/17: sr, pvcs, nl intervals, twi ant/lat, no st changes cxr: clear lungs CXR: small right pleural effusion with underlying atelectasis vs. early infiltrate. mibi 12/2014: no ischemia, large micehlle apical and septal scars, lvef 38% mibi 03/2012: large anteroapical, apical , inferior, septal scars, cannot exclude mild septal ischemia, lvef mildly reduced Echo 05/11: very TDS; severely decr LVEF, can't assess RWMAs; RV tds; valve fxn WNL Cath 05/2015 MSH: 3vd with patent DHALIWAL-LAD and SVG-RCA est cct 35 mins a/p: 71 m hx cad s/p [place] and cabg and bioAVR, htn, hld, ischemic cardiomyopathy , prior VF cardiac arrest 05/2015 now s/p ICD ([place]), paroxysmal atrial flutter (brief episodes in setting of sepsis, no AC initiated), copd on home 02 , chronic resp failure s/p trach, dm, here with hypoxia/PEA arrest. pea arrest: -based on hx seems pt's trach became dislodged and he became hypoxic which led to PEA arrest -no signs acs (no need for hep gtt from cardiac pov) or chf -cont ICU care -check echo -monitor tele -Patient has ICD ([employer]) with routine remote checks. Interrogation can be done here but it seems he had PEA and not vt/vf. -anoxic brain injury per Neuro eval, likely poor prognosis hypotension: -bp mildly low -likely due to cardiac arrest -required levo briefly, now off COPD/chronic resp failure: -s/p trach, with mechanical ventilation requirement cad s/p mi, cabg: - no signs acs-->trop borderline elevated with flat trend and nl ck, not c/w acs - ecg with new twis, likely from cardiac arrest, monitor with repeat ecg - no obstructive dz at cath 06/11 - on statin, asa ischemic cardiomyopathy with h/o VF s/p ICD - holding BB, MARY while acutely hypotensive - family denies recent ICD shocks, has remote monitoring being done via EP at [place]--hailee armendariz - electrolyte repletion prn. parox atrial flutter on prior admission with sepsis - episodes were brief and patient was not placed on alf anticoagulation. monitor tele for now s/p bioAVR -done in 2012 at time of CABG -TDS echo in past (not helpful for valve fxn)-->will check updated echo here
--- NOTE | 2017-05-02 11:22 | PN ---
Progress Note, Physician - Current Medication List Current Medications: Active Medications Albuterol/Ipratropium (Duoneb -) 1 amp NEB Q30M PRN PRN Reason: SHORTNESS OF BREATH Last Admin: 05/02/17 06:01 Dose: 1 amp Aspirin (Asa -) 81 mg NGT DAILY [facility] Last Admin: 05/02/17 10:42 Dose: 81 mg Atorvastatin Calcium (Lipitor -) 10 mg NGT HS [facility] Last Admin: 05/01/17 22:00 Dose: Not Given Chlorhexidine Gluconate (Hibiclens For Decolonization -) 1 applic TP HS [facility] Last Admin: 05/01/17 22:00 Dose: 1 applic Sodium Chloride (Normal Saline -) 1,000 mls @ 100 mls/hr IV ASDIR [facility]ICKY Last Admin: 05/02/17 05:00 Dose: 100 mls/hr Propofol (Diprivan -) 1,000,000 mcg in 100 mls @ 2.449 mls/hr IVPB TITR RICKY; 5 MCG/KG/MIN PRN Reason: Protocol Last Admin: 05/01/17 18:43 Dose: 5 mcg/kg/min, 2.449 mls/hr Fentanyl 500 mcg/ Dextrose 100 mls @ 20 mls/hr IVPB TITR RICKY PRN Reason: 100 MCG/HR Last Admin: 05/02/17 07:17 Dose: Not Given Midazolam HCl 100 mg/ Sodium (Chloride) 100 mls @ 6 mls/hr IVPB TITR RICKY; 6 MG/ HR PRN Reason: Protocol Last Admin: 05/02/17 07:17 Dose: Not Given Norepinephrine Bitartrate 8, (000 mcg/ Dextrose) 500 mls @ 9.18 mls/hr IV ASDIR RICKY; 0.03 MCG/KG/MIN PRN Reason: Protocol Last Admin: 05/01/17 23:45 Dose: 0.03 mcg/kg/min, 9.18 mls/hr Methylprednisolone Sodium Succinate (Solu-Medrol -) 60 mg IVPB Q8H-IV [facility]ICKY Last Admin: 05/02/17 10:42 Dose: 60 mg Mupirocin (Bactroban Ointment (For Decolonization) -) 1 applic NS BID [facility]ICK[facility] Stop: 05/05/17 21:59 Last Admin: 05/02/17 10:43 Dose: 1 applic - Objective Vital Signs: Vital Signs Temperature 97.5 F L 05/02/17 10:00 Pulse Rate 78 05/02/17 11:00 Respiratory Rate 20 05/02/17 11:00 Blood Pressure 98/62 05/02/17 11:00 O2 Sat by Pulse Oximetry (%) 100 05/01/17 20:00 Cardiovascular: Yes: S1, S2 Respiratory: Yes: Mechanically Ventilated Gastrointestinal: Yes: Normal Bowel Sounds, Soft Neurological: Yes: Unresponsive Labs: CBC, BMP 05/02/17 05:25 05/02/17 05:25 INR, PTT INR 1.30 (0.82-1.09) H D 04/30/17 20:09 Problem List - Problems (1) Cardiac arrest Assessment/Plan: ICU MONITORING FOLLOW CE CARDIO CONSULT [facility] CARE PRESSERS Code(s): I46.9 - CARDIAC ARREST, CAUSE UNSPECIFIED (2) Acute and chronic respiratory failure with hypercapnia Assessment/Plan: NEBS IV STEROIDS PULM CONSULT VENT SUPPORT ON PROPOPHOL Code(s): J96.22 - ACUTE AND CHRONIC RESPIRATORY FAILURE WITH HYPERCAPNIA (3) Anoxia Assessment/Plan: NEURO CONSULT TO ASSES ANOXIA Code(s): R09.02 - HYPOXEMIA
[2017-05-02] MEDS: PROPOFOL 1,000,000 MCG/100 ML VIAL IVPB SCH (19:44)
[2017-05-02] MEDS: CHLORHEXIDINE GLUCONATE 4% CLEANSER FOR DECOLONIZATION TP SCH (21:58)
[2017-05-02] MEDS: ATORVASTATIN CA 10 MG TABLET (FP) NGT SCH (21:58)
[2017-05-03] MEDS: methylPREDNISolone NA SUCC 125 MG/2 ML VIAL IVPB SCH ×3 (02:00→18:50)
[2017-05-03 07:12] LABS: HEMATOCRIT 32.4 % (35.4-49); MCH 24.2 pg (25.7-33.7); MCHC 30.9 g/dl (32.0-35.9); MEAN CELL VOLUME 78.4 fl (80-96); MEAN PLT VOLUME 8.1 fl (7.5-11.1); PLATELET COUNT 183 K/MM3 (134-434); RBC 4.13 M/mm3 (4.00-5.60); WHITE BLOOD COUNT 10.5 K/mm3 (4.0-10.0)
[2017-05-03 07:27] LABS: ANION GAP 11 (8-16); BILIRUBIN,TOTAL 0.8 mg/dL (0.2-1.0); BLOOD UREA NITROGEN 40 mg/dL (7-18); CALCIUM 8.2 mg/dL (8.5-10.1); CHLORIDE 103 mmol/L (98-107); CO2 27 mmol/L (21-32); CREATININE 1.3 mg/dL (0.7-1.3); GLUCOSE,RANDOM 167 mg/dL (74-106); POTASSIUM 4.1 mmol/L (3.5-5.1); SGOT/AST 26 U/L (15-37); SGPT/ALT 94 U/L (12-78); SODIUM 141 mmol/L (136-145)
[2017-05-03 07:28] LABS: ALK PHOS 69 U/L (45-117)
--- NOTE | 2017-05-03 09:08 | PN ---
Physical Exam: SUBJECTIVE: Patient seen and examined. Now grimacing to pain but still unable to follow commands. Still on levophed and fluids. Off propofol this am. OBJECTIVE: Vital Signs Period Temp Pulse Resp BP Sys/Jaramillo Pulse Ox Last 24 Hr 96.9 F-98.6 F 63-78 18-20 98-139/51-73 GENERAL: The patient is non responsive except for grimacing to pain, on tracheostomy- VCV-AC- fi02-30%, TV-450, PEEP-8, RR-20. HEAD: OGT in place EYES: Sluggishly reacting pupils bilaterally,Unequal- Rt 4mm, L2mm, positive doll's eyes bilaterally ENT: tracheostomy tube in situ, dry moist mucous membranes, absent teeth. NECK: tracheostomy tube in situ, RIJ in situ. LUNGS:Mechanical Breath sounds L> R, HEART: Regular rate and rhythm, S1, S2 , CVP-12 ABDOMEN: Soft,nondistended, bowel sounds present EXTREMITIES:LUE peripheral line, RUE arterial line, NEUROLOGICAL: Grimacing to pain, positive gag reflex PSYCH: Unable to assess Lines:tracheostomy,RIJ, Cooper, OGT, R arterial line, Laboratory Results - last 24 hr 05/03/17 05/03/17 05/03/17 05:20 05:20 05:20 WBC 10.5 H D RBC 4.13 Hgb 10.0 L Hct 32.4 L MCV 78.4 L MCH 24.2 L MCHC 30.9 L RDW 18.0 H Plt Count 183 MPV 8.1 PTT (Actin FS) 23.4 L D Sodium 141 Potassium 4.1 Chloride 103 Carbon Dioxide 27 Anion Gap 11 BUN 40 H D Creatinine 1.3 Creat Clearance w eGFR 54.42 Random Glucose 167 H Calcium 8.2 L Total Bilirubin 0.8 AST 26 D ALT 94 H D Alkaline Phosphatase 69 Total Protein 6.0 L Albumin 3.0 L Active Medications Generic Name Dose Route Start Last Admin Trade Name Freq PRN Reason Stop Dose Admin Albuterol/Ipratropium 1 amp 05/01/17 17:06 05/02/17 11:35 Duoneb - NEB 1 amp Q30M PRN Administration SHORTNESS OF BREATH Aspirin 81 mg 05/01/17 10:00 05/02/17 10:42 Asa - NGT 81 mg DAILY RICKY Administration Atorvastatin Calcium 10 mg 05/01/17 22:00 05/02/17 21:58 Lipitor - NGT 10 mg HS RICKY Administration Chlorhexidine Gluconate 1 applic 04/30/17 22:00 05/02/17 21:58 Hibiclens For Decolonization - TP 1 applic HS [facility]ICK[facility] Administration Sodium Chloride 1,000 mls @ 100 mls/hr 05/01/17 06:00 05/02/17 05:00 Normal Saline - IV 100 mls/hr ASDIR RICKY Administration Propofol 1,000,000 mcg in 100 mls @ 2.449 mls/hr 05/01/17 17:45 05/02/17 19: 44 Diprivan - IVPB 5 mcg/kg/min TITR RICKY 2.449 mls/hr Protocol Administration 5 MCG/KG/MIN Norepinephrine Bitartrate 8, 500 mls @ 9.18 mls/hr 05/02/17 06:45 05/01/17 23 :45 000 mcg/ Dextrose IV 0.03 mcg/kg/min ASDIR RICKY 9.18 mls/hr Protocol Administration 0.03 MCG/KG/MIN Methylprednisolone Sodium Succinate 60 mg 05/01/17 18:00 05/03/17 02:00 Solu-Medrol - IVPB 60 mg Q8H-IV [facility] Administration Mupirocin 1 applic 04/30/17 22:00 05/02/17 21:58 Bactroban Ointment (For Decolonization) - NS 05/05/17 21:59 1 applic BID RICKY Administration Microbiology 04/30/17 22:52 Blood - Peripheral Venous Blood Culture - Preliminary NO GROWTH OBTAINED AFTER 48 HOURS, INCUBATION TO CONTINUE FOR 3 DAYS. 04/30/17 22:52 Blood - Peripheral Venous Blood Culture - Preliminary NO GROWTH OBTAINED AFTER 48 HOURS, INCUBATION TO CONTINUE FOR 3 DAYS. ASSESSMENT/PLAN: 71 y/o M w/ PMH tracheostomy (vent dependent x4 yrs from [facility]), COPD, DM2, NM s/p CABG with Ao valve replacement, s/p PPM, HTN, HLD previous hx of cardiac arrest (2015) with TTM, who was BIBEMS with hypoxia, s/p dislodged trach and cardiac arrest, likely PEA in the field and in ER, found to have anoxic brain injury. Neuro: AMS 2/2 anoxic brain injury s/p cardiac arrest Seen by neurology- Dr Ross Sedation vacation to monitor mental status Monitor D/W with [facility] Cardio: CAD hx-s/p CABG with Ao valve replacement, s/p PPM HTN HLD Hypotension Atorvastatin 10mg HS NGT Levophed at 9.18ml/hr- wean ASA 81mg NGT daily Respiratory: Acute on Chronic hypoxic, hypercapnic respiratory failure COPD s/p tracheostomy and ventilator dependence (4years) to prevent air stacking on vent-RR reduced from 20 to 16 ABGs Sedation vacation Duonebs Iv methylprednisolone taper- from iv 60mg Q8hrly to iv 60mg 12hrly x 2days Metab/Fluids/Lines: DM- BGMs ISS Monitor IV Normal saline @100ml/hr tracheostomy,RIJ, Cooper, OGT, R arterial line CMP, Mg, Phosphorus ID: Follow cultures- blood cultures- prelim negative after 48hrs Prophylaxis: iv Protonix 40mg bid Bilateral SCDs Dispo: Poor prognosis D/W [facility]- they recounted prior cardiac arrest 2 years ago, open to further discussions with palliative care Cont ICU mx on vent Palliative care- Claribel Elliott on board for family meeting today Visit type - Emergency Visit Emergency Visit: Yes ED Registration Date: 04/30/17 Care time: The patient presented to the Emergency Department on the above date and was hospitalized for further evaluation of their emergent condition. - New Patient This patient is new to me today: Yes Date on this admission: 05/03/17 - Critical Care Critical Care patient: Yes Total Critical Care Time (in minutes): 45 Critical Care Statement: The care of this patient involved high complexity decision making to prevent further life threatening deterioration of the patient 's condition and/or to evaluate & treat vital organ system(s) failure or risk of failure.
[2017-05-03 09:34] LABS: ARTERIAL BLD GAS O2 SATURATION 96.8 % (90-98.9); ARTERIAL BLOOD GAS BASE EXCESS 1.7 meq/l (-2-2); ARTERIAL BLOOD GAS PCO2 38.5 mmHg (35-45); ARTERIAL BLOOD GAS PO2 85.4 mmHg (70-100); ARTERIAL BLOOD GAS pH 7.44 (7.35-7.45)
--- NOTE | 2017-05-03 09:36 | PN ---
Progress Note, Physician Chief Complaint: s/p PEA arrest History of Present Illness: intubated via trach. not responsive, eyes open - Current Medication List Current Medications: Active Medications Albuterol/Ipratropium (Duoneb -) 1 amp NEB Q30M PRN PRN Reason: SHORTNESS OF BREATH Last Admin: 05/02/17 11:35 Dose: 1 amp Aspirin (Asa -) 81 mg NGT DAILY [facility] Last Admin: 05/02/17 10:42 Dose: 81 mg Atorvastatin Calcium (Lipitor -) 10 mg NGT HS [facility] Last Admin: 05/02/17 21:58 Dose: 10 mg Chlorhexidine Gluconate (Hibiclens For Decolonization -) 1 applic TP HS [facility] Last Admin: 05/02/17 21:58 Dose: 1 applic Sodium Chloride (Normal Saline -) 1,000 mls @ 100 mls/hr IV ASDIR [facility]ICK[facility] Last Admin: 05/02/17 05:00 Dose: 100 mls/hr Propofol (Diprivan -) 1,000,000 mcg in 100 mls @ 2.449 mls/hr IVPB TITR RICKY; 5 MCG/KG/MIN PRN Reason: Protocol Last Admin: 05/02/17 19:44 Dose: 5 mcg/kg/min, 2.449 mls/hr Norepinephrine Bitartrate 8, (000 mcg/ Dextrose) 500 mls @ 9.18 mls/hr IV ASDIR RICKY; 0.03 MCG/KG/MIN PRN Reason: Protocol Last Admin: 05/01/17 23:45 Dose: 0.03 mcg/kg/min, 9.18 mls/hr Methylprednisolone Sodium Succinate (Solu-Medrol -) 60 mg IVPB Q8H-IV [facility] Last Admin: 05/03/17 02:00 Dose: 60 mg Mupirocin (Bactroban Ointment (For Decolonization) -) 1 applic NS BID [facility] Stop: 05/05/17 21:59 Last Admin: 05/02/17 21:58 Dose: 1 applic - Objective Vital Signs: Vital Signs Temperature 97.7 F 05/03/17 05:38 Pulse Rate 63 05/03/17 08:00 Respiratory Rate 20 05/03/17 08:00 Blood Pressure 119/60 05/03/17 08:00 O2 Sat by Pulse Oximetry (%) 100 05/01/17 20:00 Constitutional: Yes: Well Nourished, No Distress, Calm Cardiovascular: Yes: Regular Rate and Rhythm (decr intensity), S1, S2. No: JVD (tds exam), Gallop, Murmur Respiratory: Yes: Regular, CTA Bilaterally (anteriorly). No: Accessory Muscle Use Extremities: No: Cold Edema: No Neurological: No: Alert, Oriented Psychiatric: No: Agitated Labs: CBC, BMP 05/03/17 05:20 05/03/17 05:20 INR, PTT INR 1.30 (0.82-1.09) H D 04/30/17 20:09 - ....Imaging EKG: Other (tele: NSR.) Assessment/Plan ecg 04/30/17: sr, pvcs, nl intervals, twi ant/lat, no st changes cxr: clear lungs CXR: small right pleural effusion with underlying atelectasis vs. early infiltrate. mibi 12/2014: no ischemia, large michelle apical and septal scars, lvef 38% mibi 03/2012: large anteroapical, apical , inferior, septal scars, cannot exclude mild septal ischemia, lvef mildly reduced Echo 05/11: very TDS; severely decr LVEF, can't assess RWMAs; RV tds; valve fxn WNL Cath 05/2015 MSH: 3vd with patent DHALIWAL-LAD and SVG-RCA a/p: 71 m hx cad s/p WI and cabg and bioAVR, htn, hld, ischemic cardiomyopathy , prior VF cardiac arrest 05/2015 now s/p ICD ([place]), paroxysmal atrial flutter (brief episodes in setting of sepsis, no AC initiated), copd on home , chronic resp failure s/p trach, dm, here with hypoxia/PEA arrest. anoxic brain injury 2/2 PEA cardiac arrest in the setting of acute Hypercapnic Respiratory Failure: -? trach dislodgement triggered sequence of events -doubt acs here (troponins low/non-diagnostic range, nonspecific ECG changes obtained s/p hypoxia and cardiac arrest) -no signs CHF -vent mgmt per critical care -f/u echo (done this AM) -Patient has ICD ([place]) with routine remote checks (via EP at [facility])--if makes meaningful recovery, will f/u with EP regarding any detected arrhythmias at time of event -monitor tele, as doing HTN: -currently hypertensive, MAP 111 -? secondary to increased ICP -bp has been low transiently, mostly WNL over past 24 hrs -defer meds for now, observe BP trend COPD/chronic resp failure: -s/p trach, with mechanical ventilation requirement cad with h/o mi, cabg: - ACS not likely here, as above - no obstructive dz at cath 06/11 - on statin, asa ischemic cardiomyopathy with h/o VF s/p ICD - held BB, MARY here while acutely hypotensive - low threshold to resume if bp remains elevated/stable - appears clinically euvolemic--no aggressive diuresis warranted - has primary prevn ICD, monitor tele - electrolyte repletion prn. 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 s/p bioAVR -done in 2012 at time of CABG -TDS echo in past (not helpful for valve fxn)-->will check updated echo here est time spent in data review, pt exam, and formulating mgmt plan of potentially life-threatening illness = 35 min
[2017-05-03] MEDS: ASPIRIN 81 MG CHEWABLE TABLETS NGT SCH (10:00)
[2017-05-03] MEDS: MUPIROCIN 2% TOPICAL OINTMENT FOR DECOLONIZATION NS SCH ×2 (10:00→21:17)
[2017-05-03] MEDS ORDERED: PT OWN MED DRAWER 7, Y5N ONE (10:23)
[2017-05-03] MEDS: SODIUM CHLORIDE 1,000 ML IV SCH (12:00)
--- NOTE | 2017-05-03 12:00 | PN ---
Teaching Attending Note Name of Resident: Lana Longoria ATTENDING PHYSICIAN STATEMENT I saw and evaluated the patient. I reviewed the resident's note and discussed the case with the resident. I agree with the resident's findings and plan as documented. SUBJECTIVE: Patient seen and examined in the ICU. Remains poorly responsive on AC mode of vent. NE for hemodynamic support. Grimaces to pain, does not follow commands. Pupils unequal but reactive (right > left). Intake & Output 04/30/17 05/01/17 05/02/17 05/03/17 23:59 23:59 23:59 23:59 Intake Total 3366 1030 Output Total 60 750 1400 300 Balance -60 -750 1966 730 Weight 180 lb 180 lb Last Vital Signs Temp Pulse Resp BP Pulse Ox 98.8 F 85 16 165/88 99 05/03/17 10:00 05/03/17 10:00 05/03/17 10:00 05/03/17 10:00 05/03/17 09:38 Active Medications Albuterol/Ipratropium (Duoneb -) 1 amp NEB Q30M PRN PRN Reason: SHORTNESS OF BREATH Last Admin: 05/02/17 11:35 Dose: 1 amp Aspirin (Asa -) 81 mg NGT DAILY [facility] Last Admin: 05/03/17 10:00 Dose: 81 mg Atorvastatin Calcium (Lipitor -) 10 mg NGT HS [facility] Last Admin: 05/02/17 21:58 Dose: 10 mg Chlorhexidine Gluconate (Hibiclens For Decolonization -) 1 applic TP HS [facility] Last Admin: 05/02/17 21:58 Dose: 1 applic Sodium Chloride (Normal Saline -) 1,000 mls @ 100 mls/hr IV ASDIR RICKY Last Admin: 05/02/17 05:00 Dose: 100 mls/hr Propofol (Diprivan -) 1,000,000 mcg in 100 mls @ 2.449 mls/hr IVPB TITR RICKY; 5 MCG/KG/MIN PRN Reason: Protocol Last Admin: 05/02/17 19:44 Dose: 5 mcg/kg/min, 2.449 mls/hr Norepinephrine Bitartrate 8, (000 mcg/ Dextrose) 500 mls @ 9.18 mls/hr IV ASDIR RICKY; 0.03 MCG/KG/MIN PRN Reason: Protocol Last Admin: 05/01/17 23:45 Dose: 0.03 mcg/kg/min, 9.18 mls/hr Methylprednisolone Sodium Succinate (Solu-Medrol -) 60 mg IVPB Q8H-IV R[facility]Y Last Admin: 05/03/17 10:00 Dose: 60 mg Mupirocin (Bactroban Ointment (For Decolonization) -) 1 applic NS BID RICKY Stop: 05/05/17 21:59 Last Admin: 05/03/17 10:00 Dose: 1 applic GEN: Poorly responsive, Trached / vented HEENT: Pupils Right 3mm/Left 2 mm, reactive, Trach midline and intact PULM: Few rhonchi CV: nml S1 S2, RR ABD: (+) BS, ND EXT: + Pulses, WWPX4, (-) edema Laboratory Results - last 24 hr 05/03/17 05/03/17 05/03/17 05:20 05:20 05:20 WBC 10.5 H D RBC 4.13 Hgb 10.0 L Hct 32.4 L MCV 78.4 L MCH 24.2 L MCHC 30.9 L RDW 18.0 H Plt Count 183 MPV 8.1 PTT (Actin FS) 23.4 L D Puncture Site ABG pH ABG pCO2 at Pt Temp ABG pO2 at Pt Temp ABG HCO3 ABG O2 Sat (Measured) ABG O2 Content ABG Base Excess Rashel Test Oxygen Flow Rate Vent Mode Vent Rate Mechanical Rate PEEP Pressure Support Vent Sodium 141 Potassium 4.1 Chloride 103 Carbon Dioxide 27 Anion Gap 11 BUN 40 H D Creatinine 1.3 Creat Clearance w eGFR 54.42 Random Glucose 167 H Calcium 8.2 L Total Bilirubin 0.8 AST 26 D ALT 94 H D Alkaline Phosphatase 69 Total Protein 6.0 L Albumin 3.0 L 05/03/17 09:20 WBC RBC Hgb Hct MCV MCH MCHC RDW Plt Count MPV PTT (Actin FS) Puncture Site No Result Required. ABG pH 7.44 ABG pCO2 at Pt Temp 38.5 ABG pO2 at Pt Temp 85.4 D ABG HCO3 25.4 ABG O2 Sat (Measured) 96.8 ABG O2 Content 13.1 L ABG Base Excess 1.7 Rashel Test Not applicable Oxygen Flow Rate 30 Vent Mode A/c Vent Rate 20 Mechanical Rate Esput PEEP 8.0 Pressure Support Vent 450 Sodium Potassium Chloride Carbon Dioxide Anion Gap BUN Creatinine Creat Clearance w eGFR Random Glucose Calcium Total Bilirubin AST ALT Alkaline Phosphatase Total Protein Albumin Problem List - Problems (1) Cardiac arrest Code(s): I46.9 - CARDIAC ARREST, CAUSE UNSPECIFIED (2) Acute and chronic respiratory failure with hypercapnia Code(s): J96.22 - ACUTE AND CHRONIC RESPIRATORY FAILURE WITH HYPERCAPNIA (3) Anoxia Code(s): R09.02 - HYPOXEMIA (4) CAD (coronary artery disease) Code(s): I25.10 - ATHSCL HEART DISEASE OF [place] CORONARY ARTERY W/O ANG PCTRS (5) COPD (chronic obstructive pulmonary disease) Code(s): J44.9 - CHRONIC OBSTRUCTIVE PULMONARY DISEASE, UNSPECIFIED Qualifiers: Emphysema type: unspecified (6) Elevated LFTs Code(s): R79.89 - OTHER SPECIFIED ABNORMAL FINDINGS OF BLOOD CHEMISTRY (7) Ventilator dependence Code(s): Z99.11 - DEPENDENCE ON RESPIRATOR [VENTILATOR] STATUS (8) Uncontrolled diabetes mellitus Code(s): E11.65 - TYPE 2 DIABETES MELLITUS WITH HYPERGLYCEMIA Qualifiers: Diabetes mellitus type: type 2 (9) Respiratory failure Code(s): J96.90 - RESPIRATORY FAILURE, UNSP, UNSP W HYPOXIA OR HYPERCAPNIA Qualifiers: Chronicity: acute on chronic ASSESS: CP Arrest with resulting NITIN AMI (2012) S/P Aortic Valve Replacement (2012) CABG HTN HPL COPD: S/P Trach PLAN: BD TX Short steroid taper Follow cultures Follow Neuro exam Wean pressors ASA Lipitor Overall prognosis appears poor Dr Mccollum Critical care time spent in reviewing chart, evaluating patient and formulating plan - 40 minutes.
--- NOTE | 2017-05-03 12:08 | PN ---
Progress Note (short form) - Note Progress Note: NEUROLOGY FOLLOW-UP: Events reviewed and discussed with Dr. Mccollum and the ICU housestaff. Pt is s/p cardiopulmonary arrest x 2 with resuscitation. Pt remains poorly responsive OFF Propofol at this time. ++ spontatneous respirations. No response to sternal pressure. (Dr. Mccollum described decerebrate posturing on his exam.) Right pupil 4mm left 1 1/2 mm both react to light. B/L corneals are present this AM Full EOM's to Doll's head No limb mov'ts. IMP: Still with severe cerebral dysfunction Although brainstem functions are clearly improved at this time. Exam is c/w anoxic encephalopathy. SUGGEST: Cont. supportive care. Prognosis guarded. Thank you very much, Kyle Ross MD
--- NOTE | 2017-05-03 15:29 | PN ---
Progress Note, Physician Chief Complaint: s/p cardiac arrest seen in icu low dose of propofol off the presors on the vent on AC mode - Current Medication List Current Medications: Active Medications Albuterol/Ipratropium (Duoneb -) 1 amp NEB Q30M PRN PRN Reason: SHORTNESS OF BREATH Last Admin: 05/02/17 11:35 Dose: 1 amp Aspirin (Asa -) 81 mg NGT DAILY [facility] Last Admin: 05/03/17 10:00 Dose: 81 mg Atorvastatin Calcium (Lipitor -) 10 mg NGT HS [facility] Last Admin: 05/02/17 21:58 Dose: 10 mg Chlorhexidine Gluconate (Hibiclens For Decolonization -) 1 applic TP HS [facility] Last Admin: 05/02/17 21:58 Dose: 1 applic Sodium Chloride (Normal Saline -) 1,000 mls @ 100 mls/hr IV ASDIR RICYK Last Admin: 05/02/17 05:00 Dose: 100 mls/hr Propofol (Diprivan -) 1,000,000 mcg in 100 mls @ 2.449 mls/hr IVPB TITR RICKY; 5 MCG/KG/MIN PRN Reason: Protocol Last Admin: 05/02/17 19:44 Dose: 5 mcg/kg/min, 2.449 mls/hr Norepinephrine Bitartrate 8, (000 mcg/ Dextrose) 500 mls @ 9.18 mls/hr IV ASDIR RICKY; 0.03 MCG/KG/MIN PRN Reason: Protocol Last Admin: 05/01/17 23:45 Dose: 0.03 mcg/kg/min, 9.18 mls/hr Methylprednisolone Sodium Succinate (Solu-Medrol -) 60 mg IVPB Q8H-IV [facility] Last Admin: 05/03/17 10:00 Dose: 60 mg Mupirocin (Bactroban Ointment (For Decolonization) -) 1 applic NS BID RICKY Stop: 05/05/17 21:59 Last Admin: 05/03/17 10:00 Dose: 1 applic - Objective Vital Signs: Vital Signs Temperature 98.8 F 05/03/17 10:00 Pulse Rate 85 05/03/17 10:00 Respiratory Rate 18 05/03/17 14:49 Blood Pressure 155/82 05/03/17 12:00 O2 Sat by Pulse Oximetry (%) 99 05/03/17 09:38 Constitutional: Yes: Calm HENT: Yes: Other ( ng tube intubated) Cardiovascular: Yes: S1, S2 Respiratory: Yes: Mechanically Ventilated Gastrointestinal: Yes: Soft Labs: CBC, BMP 05/03/17 05:20 05/03/17 05:20 INR, PTT INR 1.30 (0.82-1.09) H D 04/30/17 20:09 Problem List - Problems (1) Anoxia Assessment/Plan: seen by neurology intubated Code(s): R09.02 - HYPOXEMIA (2) Cardiac arrest Assessment/Plan: s/p resp failure intubated dvt ppx Code(s): I46.9 - CARDIAC ARREST, CAUSE UNSPECIFIED (3) CAD (coronary artery disease) Assessment/Plan: asa,lipitor via ng tube Code(s): I25.10 - ATHSCL HEART DISEASE OF [place] CORONARY ARTERY W/O ANG PCTRS
[2017-05-03] MEDS: PROPOFOL 1,000,000 MCG/100 ML VIAL IVPB SCH (16:20)
[2017-05-03] MEDS: NOREPINEPHRINE BITARTRATE 8,000 MCG in DEXTROSE 5%-WATER - 492 ML IV SCH (18:49)
[2017-05-03] MEDS: ATORVASTATIN CA 10 MG TABLET (FP) NGT SCH (21:05)
[2017-05-03] MEDS: CHLORHEXIDINE GLUCONATE 4% CLEANSER FOR DECOLONIZATION TP SCH (21:17)
[2017-05-04] MEDS: ALBUTEROL SO4 2.5/IPRATROPIUM 0.5 INH SOL 3 ML VIAL.NEB. NEB PRN (05:35)
[2017-05-04 06:45] LABS: HEMATOCRIT 32.6 % (35.4-49); HEMOGLOBIN 10.2 GM/dL (11.7-16.9); LYMPH % 4.3 % (8-40); MCH 24.7 pg (25.7-33.7); MCHC 31.3 g/dl (32.0-35.9); MEAN CELL VOLUME 78.8 fl (80-96); MEAN PLT VOLUME 8.4 fl (7.5-11.1); MONO % 4.6 % (3.8-10.2); NEUT % 91.1 % (42.8-82.8); PLATELET COUNT 220 K/MM3 (134-434); RBC 4.14 M/mm3 (4.00-5.60); RDW 17.9 % (11.9-15.9); WHITE BLOOD COUNT 7.8 K/mm3 (4.0-10.0)
[2017-05-04] MEDS: NOREPINEPHRINE BITARTRATE 8,000 MCG in DEXTROSE 5%-WATER - 492 ML IV SCH (06:46)
[2017-05-04] MEDS: SODIUM CHLORIDE 1,000 ML IV SCH (06:47)
[2017-05-04 07:07] LABS: ANION GAP 8 (8-16); BLOOD UREA NITROGEN 45 mg/dL (7-18); CALCIUM 8.5 mg/dL (8.5-10.1); CHLORIDE 107 mmol/L (98-107); CO2 29 mmol/L (21-32); GLUCOSE,RANDOM 173 mg/dL (74-106); MAGNESIUM 2.3 mg/dL (1.8-2.4); PHOSPHOROUS 3.3 mg/dL (2.5-4.9); POTASSIUM 4.4 mmol/L (3.5-5.1); SGOT/AST 28 U/L (15-37); SGPT/ALT 83 U/L (12-78); SODIUM 144 mmol/L (136-145)
[2017-05-04 07:09] LABS: ALK PHOS 68 U/L (45-117); BILIRUBIN,TOTAL 0.8 mg/dL (0.2-1.0)
[2017-05-04 07:48] LABS: ARTERIAL BLD GAS O2 SATURATION 96.7 % (90-98.9); ARTERIAL BLOOD GAS BASE EXCESS 1.7 meq/l (-2-2); ARTERIAL BLOOD GAS PCO2 46.2 mmHg (35-45); ARTERIAL BLOOD GAS PO2 86.3 mmHg (70-100); ARTERIAL BLOOD GAS pH 7.38 (7.35-7.45)
[2017-05-04 08:05] LABS: ALLENS TEST POSITIVE
--- NOTE | 2017-05-04 09:22 | PN ---
Physical Exam: SUBJECTIVE: Patient seen and examined. Still sedated and intubated. Propofol restarted yesterday due to overventilation. OBJECTIVE: Vital Signs Period Temp Pulse Resp BP Sys/Jaramillo Pulse Ox Last 24 Hr 97.0 F-98.8 F 50-85 15-24 122-165/65-88 98-99 GENERAL: sedated and intubated, eye opening to pain EYES: Bilateral equal pinpoint pupils, slowly reactive. ENT: Tracheostomy tube in [id number] RR-16, 30% fiO2, TV-450, 7/8. NECK: Tracheostomy tube centally located and secure in place. LUNGS: Mechanical breath sounds bilaterally HEART: S1, S2 ABDOMEN: Soft, normoactive bowel sounds present EXTREMITIES: 2+ pulses, warm, well-perfused, no edema. NEUROLOGICAL: sedated and intubated, babinski- LLE- downward, R- equivocal PSYCH: Cannot assess SKIN: Warm, dry Lines: RIJ, Tracheostomy tube in place, NGT, LUE peripheral line, Cooper in place draining clear urine Laboratory Results - last 24 hr 05/03/17 05/03/17 05/04/17 09:20 23:52 05:20 WBC RBC Hgb Hct MCV MCH MCHC RDW Plt Count MPV Neutrophils % Lymphocytes % Monocytes % Eosinophils % Basophils % PTT (Actin FS) Puncture Site No Result Required. ABG pH 7.44 ABG pCO2 at Pt Temp 38.5 ABG pO2 at Pt Temp 85.4 D ABG HCO3 25.4 ABG O2 Sat (Measured) 96.8 ABG O2 Content 13.1 L ABG Base Excess 1.7 Rashel Test Not applicable O2 Delivery Device Oxygen Flow Rate 30 Vent Mode A/c Vent Rate 20 Mechanical Rate Esput PEEP 8.0 Pressure Support Vent 450 Sodium 144 Potassium 4.4 Chloride 107 Carbon Dioxide 29 Anion Gap 8 BUN 45 H Creatinine 1.0 D Creat Clearance w eGFR > 60 POC Glucometer [phone] Random Glucose 173 H Calcium 8.5 Phosphorus 3.3 D Magnesium 2.3 D Total Bilirubin 0.8 AST 28 ALT 83 H Alkaline Phosphatase 68 Total Protein 6.0 L Albumin 3.0 L 05/04/17 05/04/17 05/04/17 05:20 05:20 06:30 WBC 7.8 RBC 4.14 Hgb 10.2 L Hct 32.6 L MCV 78.8 L MCH 24.7 L MCHC 31.3 L RDW 17.9 H Plt Count 220 D MPV 8.4 Neutrophils % 91.1 H Lymphocytes % 4.3 L D Monocytes % 4.6 Eosinophils % 0.0 D Basophils % 0.0 PTT (Actin FS) 25.7 L Puncture Site ABG pH ABG pCO2 at Pt Temp ABG pO2 at Pt Temp ABG HCO3 ABG O2 Sat (Measured) ABG O2 Content ABG Base Excess Rashel Test O2 Delivery Device Oxygen Flow Rate Vent Mode Vent Rate Mechanical Rate PEEP Pressure Support Vent Sodium Potassium Chloride Carbon Dioxide Anion Gap BUN Creatinine Creat Clearance w eGFR POC Glucometer [phone] Random Glucose Calcium Phosphorus Magnesium Total Bilirubin AST ALT Alkaline Phosphatase Total Protein Albumin 05/04/17 07:30 WBC RBC Hgb Hct MCV MCH MCHC RDW Plt Count MPV Neutrophils % Lymphocytes % Monocytes % Eosinophils % Basophils % PTT (Actin FS) Puncture Site Right radial ABG pH 7.38 ABG pCO2 at Pt Temp 46.2 H ABG pO2 at Pt Temp 86.3 ABG HCO3 26.6 H ABG O2 Sat (Measured) 96.7 ABG O2 Content 13.2 L ABG Base Excess 1.7 Rashel Test Positive O2 Delivery Device Vent Oxygen Flow Rate 30 Vent Mode Vent Rate 16 Mechanical Rate Yes PEEP 8.0 Pressure Support Vent 450 Sodium Potassium Chloride Carbon Dioxide Anion Gap BUN Creatinine Creat Clearance w eGFR POC Glucometer Random Glucose Calcium Phosphorus Magnesium Total Bilirubin AST ALT Alkaline Phosphatase Total Protein Albumin Active Medications Generic Name Dose Route Start Last Admin Trade Name Freq PRN Reason Stop Dose Admin Albuterol/Ipratropium 1 amp 05/01/17 17:06 05/04/17 05:35 Duoneb - NEB 1 amp Q30M PRN Administration SHORTNESS OF BREATH Aspirin 81 mg 05/01/17 10:00 05/03/17 10:00 Asa - NGT 81 mg DAILY RICKY Administration Atorvastatin Calcium 10 mg 05/01/17 22:00 05/03/17 21:05 Lipitor - NGT 10 mg HS RICKY Administration Chlorhexidine Gluconate 1 applic 04/30/17 22:00 05/03/17 21:17 Hibiclens For Decolonization - TP 1 applic HS RICKY Administration Sodium Chloride 1,000 mls @ 100 mls/hr 05/01/17 06:00 05/04/17 06:47 Normal Saline - IV 100 mls/hr ASDIR RICK[facility] Administration Propofol 1,000,000 mcg in 100 mls @ 2.449 mls/hr 05/01/17 17:45 05/03/17 16: 20 Diprivan - IVPB 5 mcg/kg/min TITR RICKY 2.449 mls/hr Protocol Administration 5 MCG/KG/MIN Norepinephrine Bitartrate 8, 500 mls @ 9.18 mls/hr 05/02/17 06:45 05/04/17 06 :46 000 mcg/ Dextrose IV Not Given ASDIR RICKY Protocol 0.03 MCG/KG/MIN Methylprednisolone Sodium Succinate 60 mg 05/04/17 10:00 Solu-Medrol - IVPB BID RICKY Mupirocin 1 applic 04/30/17 22:00 05/03/17 21:17 Bactroban Ointment (For Decolonization) - NS 05/05/17 21:59 1 applic BID RICKY Administration ASSESSMENT/PLAN: 71 y/o M w/ PMH on tracheostomy, COPD, DM2, [place] s/p CABG with Ao valve replacement, s/p PPM, HTN, HLD previous hx of cardiac arrest presented with hypoxia, s/p dislodged trach Neuro: AMS 2/2 anoxic brain injury s/p cardiac arrest Seen by neurology- Dr Ross Sedation vacation to monitor mental status Monitor Son by bedside- thinks patient is moving more Cardio: PEA cardiac arrest CAD hx-s/p CABG with Ao valve replacement, s/p PPM HTN HLD Hypotension Atorvastatin 10mg HS NGT Levophed at 9.18ml/hr- wean ASA 81mg NGT daily Echo Remove arterial line Respiratory: Acute on Chronic hypoxic, hypercapnic respiratory failure COPD R/O exacerbation RR reduced 16 to 14, TV- 400 ABGs Sedation vacation Albuterol neb-daily Duonebs-1amp neb Q6H Iv methylprednisolone iv 60mg 12hrly Elevate HOB Aspiration precautions Significant secretions CXR- improving Metab/Fluids/Lines/GI: DM- BGMs ISS Monitor IV Normal saline @100ml/hr tracheostomy,RIJ, Cooper, OGT, R arterial line- for removal CMP, Mg, Phosphorus Hold feeds for now ID: Follow cultures- blood cultures- no growth Prophylaxis: iv Protonix 40mg bid Bilateral SCDs Heparin SQ 5000iu tid Dispo: For likely transfer to [facility] Surg if Mental status improves Palliative care- Rocio having a challenging time discussing end of life with patient's relative since he recovered after a previous arrest Visit type - Emergency Visit Emergency Visit: Yes ED Registration Date: 04/30/17 Care time: The patient presented to the Emergency Department on the above date and was hospitalized for further evaluation of their emergent condition. - New Patient This patient is new to me today: No - Critical Care Critical Care patient: Yes Total Critical Care Time (in minutes): 35 Critical Care Statement: The care of this patient involved high complexity decision making to prevent further life threatening deterioration of the patient 's condition and/or to evaluate & treat vital organ system(s) failure or risk of failure. - Discharge Referral Referred to [facility] Med P.C.: No
[2017-05-04] MEDS: methylPREDNISolone NA SUCC 125 MG/2 ML VIAL IVPB SCH ×2 (10:38→21:50)
[2017-05-04] MEDS: MUPIROCIN 2% TOPICAL OINTMENT FOR DECOLONIZATION NS SCH (10:39)
[2017-05-04] MEDS: ASPIRIN 81 MG CHEWABLE TABLETS NGT SCH (10:39)
--- NOTE | 2017-05-04 10:55 | PN ---
Progress Note (short form) - Note Progress Note: Chief Complaint: s/p PEA arrest History of Present Illness: intubated not responsive, no events overnight. off pressors Current Medications Albuterol/Ipratropium (Duoneb -) 1 amp NEB Q30M PRN PRN Reason: SHORTNESS OF BREATH Last Admin: 05/04/17 05:35 Dose: 1 amp Aspirin (Asa -) 81 mg NGT DAILY [facility] Last Admin: 05/04/17 10:39 Dose: 81 mg Atorvastatin Calcium (Lipitor -) 10 mg NGT HS [facility] Last Admin: 05/03/17 21:05 Dose: 10 mg Chlorhexidine Gluconate (Hibiclens For Decolonization -) 1 applic TP HS [facility] Last Admin: 05/03/17 21:17 Dose: 1 applic Sodium Chloride (Normal Saline -) 1,000 mls @ 100 mls/hr IV ASDIR [facility] Last Admin: 05/04/17 06:47 Dose: 100 mls/hr Propofol (Diprivan -) 1,000,000 mcg in 100 mls @ 2.449 mls/hr IVPB TITR RICKY; 5 MCG/KG/MIN PRN Reason: Protocol Last Admin: 05/03/17 16:20 Dose: 5 mcg/kg/min, 2.449 mls/hr Methylprednisolone Sodium Succinate (Solu-Medrol -) 60 mg IVPB BID [facility] Last Admin: 05/04/17 10:38 Dose: 60 mg Mupirocin (Bactroban Ointment (For Decolonization) -) 1 applic NS BID [facility] Stop: 05/05/17 21:59 Last Admin: 05/04/17 10:39 Dose: 1 applic - Objective Vital Signs: Vital Signs - 24 hr 05/03/17 05/03/17 05/03/17 11:58 12:00 14:00 Temperature 97.2 F L Pulse Rate 69 Respiratory 16 20 17 Rate Blood Pressure 155/82 156/86 O2 Sat by Pulse Oximetry (%) 05/03/17 05/03/17 05/03/17 14:49 16:00 17:29 Temperature 97.0 F L Pulse Rate Respiratory 18 24 16 Rate Blood Pressure 146/85 O2 Sat by Pulse Oximetry (%) 05/03/17 05/03/17 05/03/17 18:00 19:18 20:00 Temperature 97.2 F L Pulse Rate Respiratory 20 16 15 Rate Blood Pressure 145/74 146/80 O2 Sat by Pulse 98 Oximetry (%) 05/03/17 05/03/17 05/03/17 20:25 21:30 22:00 Temperature 97.5 F L Pulse Rate 68 Respiratory 16 16 Rate Blood Pressure 141/81 O2 Sat by Pulse 98 Oximetry (%) 05/04/17 05/04/17 05/04/17 00:00 00:32 02:00 Temperature Pulse Rate 70 67 Respiratory 16 16 16 Rate Blood Pressure 130/74 136/71 O2 Sat by Pulse Oximetry (%) 05/04/17 05/04/17 05/04/17 03:48 04:00 06:00 Temperature 98.4 F Pulse Rate 67 66 Respiratory 16 16 18 Rate Blood Pressure 128/76 133/65 O2 Sat by Pulse Oximetry (%) 05/04/17 05/04/17 06:47 08:00 Temperature Pulse Rate 50 L Respiratory 20 20 Rate Blood Pressure 122/66 O2 Sat by Pulse Oximetry (%) Intake & Output 05/02/17 05/03/17 05/04/17 05/05/17 07:59 07:59 07:59 07:59 Intake Total 1175 3221 2677.6 Output Total 950 1500 850 Balance 225 1721 1827.6 Weight 180 lb Constitutional: Yes: Well Nourished, No Distress, Calm Cardiovascular: Yes: Regular Rate and Rhythm (decr intensity), S1, S2. No: JVD (tds exam), Gallop, Murmur Respiratory: Yes: Regular, CTA Bilaterally (anteriorly). No: Accessory Muscle Use Extremities: No: Cold Edema: 1+ diffuse dependent Neurological: No: Alert, Oriented Psychiatric: No: Agitated Labs: CBC, BMP 05/04/17 05:20 05/04/17 05:20 - ....Imaging EKG: Other (tele: NSR, rare pvc's.) Assessment/Plan ecg 04/30/17: sr, pvcs, nl intervals, twi ant/lat, no st changes cxr 05/04: minimaal increased lung markings bilaterally. minimal blunting of the costophrenic angle. CXR: small right pleural effusion with underlying atelectasis vs. early infiltrate. mibi 12/2014: no ischemia, large michelle apical and septal scars, lvef 38% mibi 03/2012: large anteroapical, apical , inferior, septal scars, cannot exclude mild septal ischemia, lvef mildly reduced echo here 04/2017: nl lv size. severely reduced lvef. global. nl rv size. no mention of fn. well seated bioavr, nl fn. no ar. 1+ mac. mod tr rvsp 30-40. Echo 05/11: very TDS; severely decr LVEF, can't assess RWMAs; RV tds; valve fxn WNL Cath 05/2015 MSH: 3vd with patent DHALIWAL-LAD and SVG-RCA a/p: 71 m hx cad s/p [place] and cabg and bioAVR, htn, hld, ischemic cardiomyopathy , prior VF cardiac arrest 05/2015 now s/p ICD ([place]), paroxysmal atrial flutter (brief episodes in setting of sepsis, no AC initiated), copd on home 02 , chronic resp failure s/p trach, dm, here with hypoxia/PEA arrest. anoxic brain injury / PEA cardiac arrest in the setting of acute Hypercapnic Respiratory Failure: -? trach dislodgement triggered sequence of events -doubt acs here (troponins low/non-diagnostic range, nonspecific ECG changes obtained s/p hypoxia and cardiac arrest) -no signs CHF -vent mgmt per critical care -echo here similar to priors. -Patient has ICD ([place]) with routine remote checks (via EP at [place])--if makes meaningful recovery, will f/u with EP regarding any detected arrhythmias at time of event -monitor tele, as doing HTN: -has been labiler here. both high ? secondary to increased ICP, and transiently low requiring pressors - now off. bp now stable off anti-htn. COPD/chronic resp failure: -s/p trach, with mechanical ventilation requirement cad with h/o mi, cabg: - ACS not likely here, as above - no obstructive dz at cath 06/11 - on statin, asa ischemic cardiomyopathy with h/o VF s/p ICD - held BB, MARY here while acutely hypotensive - low threshold to resume if bp remains elevated/stable - cvp elevated, but recently on pressors and appears clinically euvolemic-- defer diuresis for now. - has primary prevn ICD, monitor tele - electrolyte repletion prn. parox atrial flutter on prior admission with sepsis - episodes were brief and patient was not placed on snf anticoagulation. - remains in sr here. s/p bioAVR -done in 2012 at time of CABG -TDS echo in past (not helpful for valve fxn)--> echo here --> well seated, no as or ar. est time spent in data review, pt exam, and formulating mgmt plan of potentially life-threatening illness = 35 min
--- NOTE | 2017-05-04 13:32 | PN ---
Teaching Attending Note Name of Resident: Lana Longoria ATTENDING PHYSICIAN STATEMENT I saw and evaluated the patient. I reviewed the resident's note and discussed the case with the resident. I agree with the resident's findings and plan as documented. SUBJECTIVE: Pt seen and examined in the ICU. Remains intubated and sedated on propofol gtt. No fevers recorded. Off pressors. OBJECTIVE: Last Vital Signs Temp Pulse Resp BP Pulse Ox 98.4 F 60 16 128/61 98 05/04/17 04:00 05/04/17 10:00 05/04/17 10:00 05/04/17 10:00 05/03/17 20:25 Intake & Output 05/01/17 05/02/17 05/03/17 05/04/17 23:59 23:59 23:59 23:59 Intake Total 3366 2480 1227.6 Output Total 750 1400 900 250 Balance -750 1966 1580 977.6 Weight 81.647 kg Gen: intubated, sedated Heart: RRR Lung: scattered rhonchi bilaterally Abd: soft, nontender Ext: no edema CBC, BMP 05/04/17 05:20 05/04/17 05:20 CXR: no infiltrates Active Medications Albuterol/Ipratropium (Duoneb -) 1 amp NEB Q30M PRN PRN Reason: SHORTNESS OF BREATH Last Admin: 05/04/17 05:35 Dose: 1 amp Aspirin (Asa -) 81 mg NGT DAILY [facility] Last Admin: 05/04/17 10:39 Dose: 81 mg Atorvastatin Calcium (Lipitor -) 10 mg NGT HS [facility] Last Admin: 05/03/17 21:05 Dose: 10 mg Chlorhexidine Gluconate (Hibiclens For Decolonization -) 1 applic TP HS [facility] Last Admin: 05/03/17 21:17 Dose: 1 applic Sodium Chloride (Normal Saline -) 1,000 mls @ 100 mls/hr IV ASDIR [facility] Last Admin: 05/04/17 06:47 Dose: 100 mls/hr Propofol (Diprivan -) 1,000,000 mcg in 100 mls @ 2.449 mls/hr IVPB TITR RICKY; 5 MCG/KG/MIN PRN Reason: Protocol Last Admin: 05/03/17 16:20 Dose: 5 mcg/kg/min, 2.449 mls/hr Norepinephrine Bitartrate 8, (000 mcg/ Dextrose) 500 mls @ 9.18 mls/hr IV ASDIR RICKY; 0.03 MCG/KG/MIN PRN Reason: Protocol Last Admin: 05/04/17 06:46 Dose: Not Given Methylprednisolone Sodium Succinate (Solu-Medrol -) 60 mg IVPB BID [facility] Last Admin: 05/04/17 10:38 Dose: 60 mg Mupirocin (Bactroban Ointment (For Decolonization) -) 1 applic NS BID [facility] Stop: 05/05/17 21:59 Last Admin: 05/04/17 10:39 Dose: 1 applic ASSESSMENT AND PLAN: PEA Cardiac Arrest Acute on Chronic Hypercapneic and Hypoxic Respiratory Failure Severe COPD - r/o Acute Exacerbation Paroxysmal Atrial Flutter CAD s/p CABG s/p bioAVR Lactic Acidosis Elevated LFTs likely ischemic injury +Troponins likely Demand Ischemia HTN Hyperlipidemia DM - continue IV medrol - inhaled bronchodilators standing and PRN - taper FiO2 to keep SpO2 >90% - hold sedation to assess mental status - echocardiogram - continue volume assist control - ASA, statin - monitor lytes - enteral feeds if mental status not improved off sedation - DVT/GI prophylaxis - can monitor on vent unit if not requiring sedation critical care time spent in reviewing chart, evaluating patient and formulating plan 35 min
--- NOTE | 2017-05-04 15:47 | PN ---
Progress Note, Physician Chief Complaint: ON VENT SUPPORT NOT RESPONDING TO STIMULI - Current Medication List Current Medications: Active Medications Albuterol/Ipratropium (Duoneb -) 1 amp NEB Q30M PRN PRN Reason: SHORTNESS OF BREATH Last Admin: 05/04/17 05:35 Dose: 1 amp Aspirin (Asa -) 81 mg NGT DAILY [facility] Last Admin: 05/04/17 10:39 Dose: 81 mg Atorvastatin Calcium (Lipitor -) 10 mg NGT HS [facility] Last Admin: 05/03/17 21:05 Dose: 10 mg Heparin Sodium (Porcine) (Heparin -) 5,000 unit SQ TID [facility]ICKY Sodium Chloride (Normal Saline -) 1,000 mls @ 100 mls/hr IV ASDIR [facility] Last Admin: 05/04/17 06:47 Dose: 100 mls/hr Propofol (Diprivan -) 1,000,000 mcg in 100 mls @ 2.449 mls/hr IVPB TITR RICKY; 5 MCG/KG/MIN PRN Reason: Protocol Last Admin: 05/03/17 16:20 Dose: 5 mcg/kg/min, 2.449 mls/hr Norepinephrine Bitartrate 8, (000 mcg/ Dextrose) 500 mls @ 9.18 mls/hr IV ASDIR RICKY; 0.03 MCG/KG/MIN PRN Reason: Protocol Last Admin: 05/04/17 06:46 Dose: Not Given Methylprednisolone Sodium Succinate (Solu-Medrol -) 60 mg IVPB BID [facility] Last Admin: 05/04/17 10:38 Dose: 60 mg - Objective Vital Signs: Vital Signs Temperature 98.4 F 05/04/17 04:00 Pulse Rate 60 05/04/17 14:00 Respiratory Rate 18 05/04/17 15:18 Blood Pressure 141/69 05/04/17 14:00 O2 Sat by Pulse Oximetry (%) 98 05/03/17 20:25 Constitutional: Yes: Moderate Distress Eyes: Yes: Other HENT: Yes: WNL Neck: Yes: WNL Cardiovascular: Yes: WNL Respiratory: Yes: Mechanically Ventilated Gastrointestinal: Yes: WNL Genitourinary: Yes: Cooper Present Musculoskeletal: Yes: Muscle Weakness Extremities: Yes: Other Edema: Yes Peripheral Pulses WNL: Yes Integumentary: Yes: WNL Wound/Incision: Yes: Clean/Dry Neurological: Yes: Pre-Existing Deficit, Other ...Motor Strength: LLE, RLE Labs: CBC, BMP 05/04/17 05:20 05/04/17 05:20 INR, PTT INR 1.30 (0.82-1.09) H D 04/30/17 20:09 Problem List - Problems (1) Anoxia Code(s): R09.02 - HYPOXEMIA (2) Cardiac arrest Code(s): I46.9 - CARDIAC ARREST, CAUSE UNSPECIFIED (3) DVT prophylaxis Code(s): LZT3518 - (4) Acute and chronic respiratory failure with hypercapnia Code(s): J96.22 - ACUTE AND CHRONIC RESPIRATORY FAILURE WITH HYPERCAPNIA (5) Acute hyperkalemia Code(s): E87.5 - HYPERKALEMIA (6) Acute on chronic systolic (congestive) heart failure Code(s): I50.23 - ACUTE ON CHRONIC SYSTOLIC (CONGESTIVE) HEART FAILURE (7) Acute renal failure (ARF) Code(s): N17.9 - ACUTE KIDNEY FAILURE, UNSPECIFIED Qualifiers: Acute renal failure type: unspecified Qualified Code(s): N17.9 - Acute kidney failure, unspecified (8) Anemia Code(s): D64.9 - ANEMIA, UNSPECIFIED Qualifiers: Anemia type: other cause Other causes of anemia: chronic disease, other Qualified Code(s): D63.8 - Anemia in other chronic diseases classified elsewhere Assessment/Plan VENT SUPPORT BP SUPPORT NOREPINEPHRINE IV FOR BP SUPPORT PULM EVAL APPRECIATED IVF CARDIO EVAL CAN TRANSFER TO VENT UNIT WHEN OFF PRESSORS
[2017-05-04] MEDS: ATORVASTATIN CA 10 MG TABLET (FP) NGT SCH (21:51)
[2017-05-04] MEDS: HEPARIN NA (PORCINE) 5,000 UNITS/ML 1ML VIAL SQ SCH (21:51)
[2017-05-05] MEDS: PROPOFOL 1,000,000 MCG/100 ML VIAL IVPB SCH (02:51)
[2017-05-05] MEDS: HEPARIN NA (PORCINE) 5,000 UNITS/ML 1ML VIAL SQ SCH ×4 (02:51→21:42)
[2017-05-05] MEDS: SODIUM CHLORIDE 1,000 ML IV SCH ×2 (02:51→06:26)
[2017-05-05 06:48] LABS: HEMATOCRIT 31.1 % (35.4-49); HEMOGLOBIN 9.7 GM/dL (11.7-16.9); LYMPH % 5.8 % (8-40); MCH 24.9 pg (25.7-33.7); MCHC 31.2 g/dl (32.0-35.9); MEAN CELL VOLUME 79.9 fl (80-96); MEAN PLT VOLUME 8.1 fl (7.5-11.1); MONO % 5.7 % (3.8-10.2); NEUT % 88.5 % (42.8-82.8); PLATELET COUNT 194 K/MM3 (134-434); RBC 3.89 M/mm3 (4.00-5.60); RDW 17.9 % (11.9-15.9); WHITE BLOOD COUNT 6.9 K/mm3 (4.0-10.0)
--- NOTE | 2017-05-05 07:21 | PN ---
Physical Exam: SUBJECTIVE: Patient seen and examined. Tracheostomy tube in place. Was sedated overnight for agitation. Seen this am, difficult to arouse. OBJECTIVE: Vital Signs Period Temp Pulse Resp BP Sys/Jaramillo Pulse Ox Last 24 Hr 98 F-99.1 F 50-74 14-30 117-141/57-76 95-98 Intake & Output 05/02/17 05/03/17 05/04/17 05/05/17 23:59 23:59 23:59 23:59 Intake Total 3366 2480 1227.6 160 Output Total 1400 519 053 4847 Balance 1966 1580 377.6 -1040 GENERAL: The patient is intubated with tracheostomy- VCV-AC- fi02-30%, TV-400, 7 /5, RR-14. HEAD: OGT in place EYES: Sluggishly reacting pupils bilaterally ENT: tracheostomy tube in situ, dry moist mucous membranes, absent teeth. NECK: tracheostomy tube in situ, RIJ in situ. LUNGS:Bilateral breath sounds, HEART: Regular rate and rhythm, S1, S2 , ABDOMEN: Soft,nondistended, bowel sounds present EXTREMITIES:LUE peripheral line, no pedal edema NEUROLOGICAL: Taken off sedation in am, mental status still difficult to assess PSYCH: Unable to assess Lines:tracheostomy,RIJ, Cooper, NGT, CBC, BMP 05/05/17 06:25 05/05/17 06:25 Laboratory Results - last 24 hr 05/04/17 05/05/17 07:30 06:25 WBC 6.9 RBC 3.89 L Hgb 9.7 L Hct 31.1 L MCV 79.9 L MCH 24.9 L MCHC 31.2 L RDW 17.9 H Plt Count 194 MPV 8.1 Neutrophils % 88.5 H Lymphocytes % 5.8 L D Monocytes % 5.7 Eosinophils % 0.0 Basophils % 0.0 Puncture Site Right radial ABG pH 7.38 ABG pCO2 at Pt Temp 46.2 H ABG pO2 at Pt Temp 86.3 ABG HCO3 26.6 H ABG O2 Sat (Measured) 96.7 ABG O2 Content 13.2 L ABG Base Excess 1.7 Rashel Test Positive O2 Delivery Device Vent Oxygen Flow Rate 30 Vent Rate 16 Mechanical Rate Yes PEEP 8.0 Pressure Support Vent 450 Active Medications Generic Name Dose Route Start Last Admin Trade Name Freq PRN Reason Stop Dose Admin Albuterol/Ipratropium 1 amp 05/01/17 17:06 05/04/17 05:35 Duoneb - NEB 1 amp Q30M PRN Administration SHORTNESS OF BREATH Albuterol/Ipratropium 1 amp 05/04/17 20:00 Duoneb - NEB RQID RICKY Aspirin 81 mg 05/01/17 10:00 05/04/17 10:39 Asa - NGT 81 mg DAILY RICKY Administration Atorvastatin Calcium 10 mg 05/01/17 22:00 05/04/17 21:51 Lipitor - NGT 10 mg HS RICKY Administration Heparin Sodium (Porcine) 5,000 unit 05/04/17 15:00 05/05/17 06:41 Heparin - SQ 5,000 unit TID RICKY Administration Sodium Chloride 1,000 mls @ 100 mls/hr 05/01/17 06:00 05/05/17 06:26 Normal Saline - IV Not Given ASDIR RICKY Propofol 1,000,000 mcg in 100 mls @ 2.449 mls/hr 05/01/17 17:45 05/05/17 06: 40 Diprivan - IVPB 5 mcg/kg/min TITR RICKY 2.449 mls/hr Protocol Titration 5 MCG/KG/MIN Norepinephrine Bitartrate 8, 500 mls @ 9.18 mls/hr 05/02/17 06:45 05/04/17 06 :46 000 mcg/ Dextrose IV Not Given ASDIR RICKY Protocol 0.03 MCG/KG/MIN Methylprednisolone Sodium Succinate 60 mg 05/04/17 10:00 05/04/17 21:50 Solu-Medrol - IVPB 60 mg BID RICKY Administration ASSESSMENT/PLAN: 71 y/o M w/ PMH on tracheostomy, COPD, DM2, [place] s/p CABG with Ao valve replacement, s/p PPM, HTN, HLD previous hx of cardiac arrest presented with hypoxia, s/p dislodged trach Neuro: AMS 2/2 anoxic brain injury s/p cardiac arrest Off Sedation for mental status assessment, no improvement noted no improvement in alertness noted today by son at bedside Only ivpush morphine 2mg Q3PRN (for agitation) Monitor Cardio: PEA cardiac arrest CAD hx-s/p CABG with Ao valve replacement, s/p PPM HTN HLD Hypotension Atorvastatin 10mg HS NGT off pressors ASA 81mg NGT daily Echo Respiratory: Acute on Chronic hypoxic, hypercapnic respiratory failure COPD R/O exacerbation Vent settings changed to-RR-12, TV-450 (based on home vent settings given by son) Albuterol neb-daily Duonebs-1amp neb Q6H Iv methylprednisolone iv 60mg 12hrly Elevate HOB Aspiration precautions Significant secretions CXR- improving Metab/Fluids/Lines/GI: DM- BGMs ISS Monitor Stop IV Normal saline @100ml/hr tracheostomy,RIJ, Cooper, NGT, CMP, Mg, Phosphorus Tube Feeding- NGT replaced-Glucerna 1.5 @20cc Oral hygiene ID: Follow cultures- blood cultures- no growth after 96hrs Prophylaxis: iv Protonix 40mg bid Bilateral SCDs Heparin SQ 5000iu tid Dispo: Transfer to [facility] Surg -Vent unit Visit type - Emergency Visit Emergency Visit: Yes ED Registration Date: 04/30/17 Care time: The patient presented to the Emergency Department on the above date and was hospitalized for further evaluation of their emergent condition. - New Patient This patient is new to me today: No - Critical Care Critical Care patient: Yes Total Critical Care Time (in minutes): 35 Critical Care Statement: The care of this patient involved high complexity decision making to prevent further life threatening deterioration of the patient 's condition and/or to evaluate & treat vital organ system(s) failure or risk of failure.
[2017-05-05 07:36] LABS: ALBUMIN 2.7 g/dl (3.4-5.0); ANION GAP 6 (8-16); BLOOD UREA NITROGEN 37 mg/dL (7-18); CALCIUM 8.3 mg/dL (8.5-10.1); CHLORIDE 112 mmol/L (98-107); CO2 27 mmol/L (21-32); GLUCOSE,RANDOM 163 mg/dL (74-106); MAGNESIUM 2.4 mg/dL (1.8-2.4); PHOSPHOROUS 3.1 mg/dL (2.5-4.9); POTASSIUM 4.5 mmol/L (3.5-5.1); SGOT/AST 16 U/L (15-37); SODIUM 145 mmol/L (136-145)
[2017-05-05 07:39] LABS: ALK PHOS 61 U/L (45-117); BILIRUBIN,TOTAL 0.7 mg/dL (0.2-1.0); CREATININE 0.8 mg/dL (0.7-1.3); SGPT/ALT 66 U/L (12-78); TOT PROT 5.4 g/dl (6.4-8.2)
[2017-05-05] MEDS: ALBUTEROL SO4 2.5/IPRATROPIUM 0.5 INH SOL 3 ML VIAL.NEB. NEB SCH ×4 (08:40→20:45)
[2017-05-05] MEDS ORDERED: methylPREDNISolone NA SUCC 40 MG/1 ML VIAL IVPB SCH (10:00)
--- NOTE | 2017-05-05 11:08 | PN ---
Progress Note (short form) - Note Progress Note: s: sedated on vent.no overnight events o: Vital Signs Temp 98 F 05/05/17 06:00 Pulse 69 05/05/17 09:54 Resp 14 05/05/17 09:54 BP 122/57 05/05/17 06:00 Pulse Ox 98 05/05/17 09:54 Intake & Output 05/04/17 05/04/17 05/05/17 11:59 23:59 11:59 Intake Total 1227.6 160 Output Total 250 600 300 Balance 977.6 -600 -140 Intake: IV 1227.6 160 DIPRIVAN - 1,000,000 mcg 27.6 40 In 100 ml @ 5 MCG/KG/MIN 2.449 mls/hr IVPB TITR RICKY Rx#:[id number] Normal Saline - 1,000 ml 1200 120 @ 100 mls/hr IV ASDIR RICKY Rx#:[id number] Output: Urine 250 600 300 Cooper 250 600 300 Other: Voiding Method Indwelling Catheter Indwelling Catheter NAD, calm, on mechanical ventilation JVD flat, neck supple diminished bs RRR nl s1, s2. no m/r/g + bs soft, no distension no le e/c/c pos dp/pt no jaundice, diaphoresis sedated Current Medications Generic Name Dose Route Start Last Admin Trade Name Frerei PRN Reason Stop Dose Admin Albuterol/Ipratropium 1 amp 05/01/17 17:06 05/04/17 05:35 Duoneb - NEB 1 amp Q30M PRN Administration SHORTNESS OF BREATH Albuterol/Ipratropium 1 amp 05/04/17 20:00 05/05/17 08:40 Duoneb - NEB 1 amp RQID RICKY Administration Aspirin 81 mg 05/01/17 10:00 05/04/17 10:39 Asa - NGT 81 mg DAILY RICKY Administration Atorvastatin Calcium 10 mg 05/01/17 22:00 05/04/17 21:51 Lipitor - NGT 10 mg HS RICKY Administration Heparin Sodium (Porcine) 5,000 unit 05/04/17 15:00 05/05/17 06:41 Heparin - SQ 5,000 unit TID RICKY Administration Sodium Chloride 1,000 mls @ 100 mls/hr 05/01/17 06:00 05/05/17 06:26 Normal Saline - IV Not Given ASDIR RICKY Propofol 1,000,000 mcg in 100 mls @ 2.449 mls/hr 05/01/17 17:45 05/05/17 10: 58 Diprivan - IVPB 0 mcg/kg/min TITR RICKY 0 mls/hr Protocol Titration 5 MCG/KG/MIN Norepinephrine Bitartrate 8, 500 mls @ 9.18 mls/hr 05/02/17 06:45 05/04/17 06 :46 000 mcg/ Dextrose IV Not Given ASDIR [facility] Protocol 0.03 MCG/KG/MIN Methylprednisolone Sodium Succinate 30 mg 05/05/17 10:00 Solu-Medrol - IVPB BID [facility] Laboratory Last Values WBC 6.9 K/mm3 (4.0-10.0) 05/05/17 06:25 RBC 3.89 M/mm3 (4.00-5.60) L 05/05/17 06:25 Hgb 9.7 GM/dL (11.7-16.9) L 05/05/17 06:25 Hct 31.1 % (35.4-49) L 05/05/17 06:25 MCV 79.9 fl (80-96) L 05/05/17 06:25 MCH 24.9 pg (25.7-33.7) L 05/05/17 06:25 MCHC 31.2 g/dl (32.0-35.9) L 05/05/17 06:25 RDW 17.9 % (11.9-15.9) H 05/05/17 06:25 Plt Count 194 K/MM3 (134-434) 05/05/17 06:25 MPV 8.1 fl (7.5-11.1) 05/05/17 06:25 Neutrophils % 88.5 % (42.8-82.8) H 05/05/17 06:25 Neutrophils % (Manual) 56.6 % (42.8-82.8) 04/30/17 20:09 Band Neutrophils % 0.0 % 04/30/17 20:09 Lymphocytes % 5.8 % (8-40) L D 05/05/17 06:25 Lymphocytes % (Manual) 28.3 % (8-40) 04/30/17 20:09 Monocytes % 5.7 % (3.8-10.2) 05/05/17 06:25 Monocytes % (Manual) 3 % (3.8-10.2) L 04/30/17 20:09 Eosinophils % 0.0 % (0-4.5) 05/05/17 06:25 Eosinophils % (Manual) 0.0 % (0-4.5) 04/30/17 20:09 Basophils % 0.0 % (0-2.0) 05/05/17 06:25 Basophils % (Manual) 0.0 % (0-2.0) 04/30/17 20:09 Myelocytes % (Man) 4 % (0-2) H 04/30/17 20:09 Metamyelocytes 2 % (0-2) 04/30/17 20:09 PT with INR 14.70 SEC (9.98-11.88) H 04/30/17 20:09 INR 1.30 (0.82-1.09) H D 04/30/17 20:09 PTT (Actin FS) 25.3 SECONDS (26.9-34.4) L 05/05/17 06:25 Anticoagulation Therapy No Result Required. 05/01/17 16:50 Puncture Site Right radial 05/04/17 07:30 ABG pH 7.38 (7.35-7.45) 05/04/17 07:30 ABG pCO2 at Pt Temp 46.2 mmHg (35-45) H 05/04/17 07:30 ABG pO2 at Pt Temp 86.3 mmHg (70-100) 05/04/17 07:30 ABG HCO3 26.6 meq/L (22-26) H 05/04/17 07:30 ABG O2 Sat (Measured) 96.7 % (90-98.9) 05/04/17 07:30 ABG O2 Content 13.2 % vol (15-22) L 05/04/17 07:30 ABG Base Excess 1.7 meq/l (-2-2) 05/04/17 07:30 Rashel Test Positive 05/04/17 07:30 Carboxyhemoglobin 1.0 gm% (0.5-2.0) 04/30/17 20:15 Methemoglobin 0.7 % (0.4-1.5) 04/30/17 20:15 O2 Delivery Device Vent 05/04/17 07:30 Oxygen Flow Rate 30 05/04/17 07:30 Vent Mode A/c 05/03/17 09:20 Vent Rate 16 05/04/17 07:30 Mechanical Rate Yes 05/04/17 07:30 PEEP 8.0 cmH2O 05/04/17 07:30 Pressure Support Vent 450 05/04/17 07:30 Sodium 145 mmol/L (136-145) 05/05/17 06:25 Potassium 4.5 mmol/L (3.5-5.1) 05/05/17 06:25 Chloride 112 mmol/L (98-107) H 05/05/17 06:25 Carbon Dioxide 27 mmol/L (21-32) 05/05/17 06:25 Anion Gap 6 (8-16) L 05/05/17 06:25 BUN 37 mg/dL (7-18) H 05/05/17 06:25 Creatinine 0.8 mg/dL (0.7-1.3) 05/05/17 06:25 Creat Clearance w eGFR > 60 (>60) 05/05/17 06:25 POC Glucometer 198.50989 UNITS (80-120) 05/04/17 06:30 Random Glucose 163 mg/dL (74-106) H 05/05/17 06:25 Hemoglobin A1c % 5.7 % (4.8-6.0) D 05/01/17 05:50 Lactic Acid 1.2 mmol/L (0.4-2.0) 05/01/17 08:30 Calcium 8.3 mg/dL (8.5-10.1) L 05/05/17 06:25 Phosphorus 3.1 mg/dL (2.5-4.9) 05/05/17 06:25 Magnesium 2.4 mg/dL (1.8-2.4) 05/05/17 06:25 Total Bilirubin 0.7 mg/dL (0.2-1.0) 05/05/17 06:25 AST 16 U/L (15-37) D 05/05/17 06:25 ALT 66 U/L (12-78) D 05/05/17 06:25 Alkaline Phosphatase 61 U/L (45-117) 05/05/17 06:25 Creatine Kinase 72 IU/L (39-308) 05/01/17 03:25 Troponin I 0.39 ng/ml (0.00-0.05) H 05/01/17 08:30 B-Natriuretic Peptide 1026.58 pg/ml (5-125) H 04/30/17 20:09 Total Protein 5.4 g/dl (6.4-8.2) L 05/05/17 06:25 Albumin 2.7 g/dl (3.4-5.0) L 05/05/17 06:25 ecg 04/30/17: sr, pvcs, nl intervals, twi ant/lat, no st changes cxr 05/04: minimaal increased lung markings bilaterally. minimal blunting of the costophrenic angle. CXR: small right pleural effusion with underlying atelectasis vs. early infiltrate. mibi 12/2014: no ischemia, large michelle apical and septal scars, lvef 38% mibi 03/2012: large anteroapical, apical , inferior, septal scars, cannot exclude mild septal ischemia, lvef mildly reduced tele: sr echo here 04/2017: nl lv size. severely reduced lvef. global. nl rv size. no mention of fn. well seated bioavr, nl fn. no ar. 1+ mac. mod tr rvsp 30-40. Echo 05/11: very TDS; severely decr LVEF, can't assess RWMAs; RV tds; valve fxn WNL Cath 05/2015 MSH: 3vd with patent DHALIWAL-LAD and SVG-RCA est cct 35 mins a/p: 71 m hx cad s/p [place] and cabg and bioAVR, htn, hld, ischemic cardiomyopathy , prior VF cardiac arrest 05/2015 now s/p ICD ([place]), paroxysmal atrial flutter (brief episodes in setting of sepsis, no AC initiated), copd on home 02 , chronic resp failure s/p trach, dm, here with hypoxia/PEA arrest. anoxic brain injury 2/2 PEA cardiac arrest in the setting of acute Hypercapnic Respiratory Failure: -? trach dislodgement triggered sequence of events -doubt acs here (troponins low/non-diagnostic range, nonspecific ECG changes obtained s/p hypoxia and cardiac arrest) -no signs CHF -vent mgmt per critical care -echo here similar to priors. -Patient has ICD ([place]) with routine remote checks (via EP at [place])--if makes meaningful recovery, will f/u with EP regarding any detected arrhythmias at time of event -monitor tele, as doing HTN: -has been labile here. both high ? secondary to increased ICP, and transiently low requiring pressors - now off. bp now stable off anti-htn. COPD/chronic resp failure: -s/p trach, with mechanical ventilation requirement cad with h/o mi, cabg: - ACS not likely here, as above - no obstructive dz at cath 06/11 - on statin, asa ischemic cardiomyopathy with h/o VF s/p ICD - held BB, MARY here while acutely hypotensive - low threshold to resume if bp remains elevated/stable - appears clinically euvolemic-- defer diuresis for now. - has primary prevn ICD, monitor tele - electrolyte repletion prn. parox atrial flutter on prior admission with sepsis - episodes were brief and patient was not placed on terminal worker anticoagulation. - remains in sr here. s/p bioAVR -done in 2012 at time of CABG -TDS echo in past (not helpful for valve fxn)--> echo here --> well seated, no as or ar.
--- NOTE | 2017-05-05 11:29 | PN ---
Progress Note, Physician Chief Complaint: INTUBATED VENT SUPPORT UNRESPONSIVE TO STIMULI - Current Medication List Current Medications: Active Medications Albuterol/Ipratropium (Duoneb -) 1 amp NEB Q30M PRN PRN Reason: SHORTNESS OF BREATH Last Admin: 05/04/17 05:35 Dose: 1 amp Albuterol/Ipratropium (Duoneb -) 1 amp NEB RQID [facility] Last Admin: 05/05/17 08:40 Dose: 1 amp Aspirin (Asa -) 81 mg NGT DAILY [facility] Last Admin: 05/04/17 10:39 Dose: 81 mg Atorvastatin Calcium (Lipitor -) 10 mg NGT HS [facility] Last Admin: 05/04/17 21:51 Dose: 10 mg Heparin Sodium (Porcine) (Heparin -) 5,000 unit SQ TID [facility] Last Admin: 05/05/17 06:41 Dose: 5,000 unit Sodium Chloride (Normal Saline -) 1,000 mls @ 100 mls/hr IV ASDIR [facility] Last Admin: 05/05/17 06:26 Dose: Not Given Propofol (Diprivan -) 1,000,000 mcg in 100 mls @ 2.449 mls/hr IVPB TITR RICKY; 5 MCG/KG/MIN PRN Reason: Protocol Last Titration: 05/05/17 10:58 Dose: 0 mcg/kg/min, 0 mls/hr Norepinephrine Bitartrate 8, (000 mcg/ Dextrose) 500 mls @ 9.18 mls/hr IV ASDIR RICKY; 0.03 MCG/KG/MIN PRN Reason: Protocol Last Admin: 05/04/17 06:46 Dose: Not Given Methylprednisolone Sodium Succinate (Solu-Medrol -) 30 mg IVPB BID [facility] - Objective Vital Signs: Vital Signs Temperature 98 F 05/05/17 06:00 Pulse Rate 69 05/05/17 09:54 Respiratory Rate 14 05/05/17 09:54 Blood Pressure 122/57 05/05/17 06:00 O2 Sat by Pulse Oximetry (%) 98 05/05/17 09:54 Constitutional: Yes: Moderate Distress Eyes: Yes: Other HENT: Yes: WNL Neck: Yes: WNL Cardiovascular: Yes: WNL Respiratory: Yes: Mechanically Ventilated, Poor Air Entry Gastrointestinal: Yes: WNL Musculoskeletal: Yes: Muscle Weakness Extremities: Yes: WNL Edema: Yes Peripheral Pulses WNL: Yes Integumentary: Yes: WNL Wound/Incision: Yes: Clean/Dry Neurological: Yes: Unresponsive, Weakness ...Motor Strength: LLE, RLE Psychiatric: Yes: Other Labs: CBC, BMP 05/05/17 06:25 05/05/17 06:25 INR, PTT INR 1.30 (0.82-1.09) H D 04/30/17 20:09 Problem List - Problems (1) Anoxia Code(s): R09.02 - HYPOXEMIA (2) Cardiac arrest Code(s): I46.9 - CARDIAC ARREST, CAUSE UNSPECIFIED (3) DVT prophylaxis Code(s): YDM5353 - (4) Acute and chronic respiratory failure with hypercapnia Code(s): J96.22 - ACUTE AND CHRONIC RESPIRATORY FAILURE WITH HYPERCAPNIA (5) Acute hyperkalemia Code(s): E87.5 - HYPERKALEMIA (6) Acute on chronic systolic (congestive) heart failure Code(s): I50.23 - ACUTE ON CHRONIC SYSTOLIC (CONGESTIVE) HEART FAILURE (7) Acute renal failure (ARF) Code(s): N17.9 - ACUTE KIDNEY FAILURE, UNSPECIFIED Qualifiers: Acute renal failure type: unspecified Qualified Code(s): N17.9 - Acute kidney failure, unspecified (8) Anemia Code(s): D64.9 - ANEMIA, UNSPECIFIED Qualifiers: Anemia type: other cause Other causes of anemia: chronic disease, other Qualified Code(s): D63.8 - Anemia in other chronic diseases classified elsewhere Assessment/Plan VENT SUPPORT BP SUPPORT NOREPINEPHRINE IV FOR BP SUPPORT PULM EVAL APPRECIATED IVF CARDIO EVAL CAN TRANSFER TO VENT UNIT WHEN OFF PRESSORS
[2017-05-05] MEDS: ASPIRIN 81 MG CHEWABLE TABLETS NGT SCH (12:14)
[2017-05-05] MEDS ORDERED: methylPREDNISolone NA SUCC 125 MG/2 ML VIAL ONE (12:15)
--- NOTE | 2017-05-05 13:59 | PN ---
Teaching Attending Note Name of Resident: Lana Longoria ATTENDING PHYSICIAN STATEMENT I saw and evaluated the patient. I reviewed the resident's note and discussed the case with the resident. I agree with the resident's findings and plan as documented. SUBJECTIVE: Pt seen and examined in the ICU. Placed on propofol gtt overnight for tachypnea. Poor mental status off sedation. Remains vented on volume assist control. OBJECTIVE: Last Vital Signs Temp Pulse Resp BP Pulse Ox 98.3 F 64 12 120/63 98 05/05/17 10:00 05/05/17 12:00 05/05/17 12:15 05/05/17 12:00 05/05/17 09:54 Intake & Output 05/02/17 05/03/17 05/04/17 05/05/17 23:59 23:59 23:59 23:59 Intake Total 3366 2480 1227.6 160 Output Total 1400 900 850 300 Balance 1966 1580 377.6 -140 Gen: vented, unresponsive, tachypneic Heart: RRR Lung: distant breath sounds, poor air movement Abd: soft, nontender Ext: no edema CBC, BMP 05/05/17 06:25 05/05/17 06:25 CXR: no infiltrates Active Medications Albuterol/Ipratropium (Duoneb -) 1 amp NEB RQID [facility] Last Admin: 05/05/17 12:16 Dose: 1 amp Aspirin (Asa -) 81 mg NGT DAILY [facility] Last Admin: 05/05/17 12:14 Dose: 81 mg Atorvastatin Calcium (Lipitor -) 10 mg NGT HS [facility] Last Admin: 05/04/17 21:51 Dose: 10 mg Heparin Sodium (Porcine) (Heparin -) 5,000 unit SQ TID [facility] Last Admin: 05/05/17 06:41 Dose: 5,000 unit Methylprednisolone Sodium Succinate (Solu-Medrol -) 60 mg IVPB BID [facility] Morphine Sulfate (Morphine Injection -) 2 mg IVPUSH Q3H PRN PRN Reason: ANXIETY ASSESSMENT AND PLAN: PEA Cardiac Arrest Acute on Chronic Hypercapneic and Hypoxic Respiratory Failure Severe COPD - r/o Acute Exacerbation Paroxysmal Atrial Flutter CAD s/p CABG s/p bioAVR Lactic Acidosis resolved Elevated LFTs likely ischemic injury Severe LV Systolic Dysfunction +Troponins likely Demand Ischemia HTN Hyperlipidemia DM - continue IV medrol at same dose - inhaled bronchodilators standing and PRN - taper FiO2 to keep SpO2 >90% - minimize sedation to assess mental status, can use morphine PRN for tachypnea - continue volume assist control, not a candidate for weaning at this time - ASA, statin - monitor lytes - enteral feeds - DVT/GI prophylaxis - can monitor on vent unit critical care time spent in reviewing chart, evaluating patient and formulating plan 35 min
--- NOTE | 2017-05-05 13:59 | CONSULT ---
Consult Consult Specialty:: Nephrology Referred by:: Dr Adams Reason for Consultation:: azotemia - History of Present Illness Chief Complaint: s/p arrest History of Present Illness: Pt is a 71 year old male with pmhx of chronic resp failure with trache, copd, dm , cad, cabg, htn, and chol who was brought to the ER after pt had desaturated. There was a problem with his trache cuff. Pt did have a cardiac arrest. He required epi, amio and bicarb. Pt had been unresponsive. I was called to evaluate him for azotemia. Family are at bedside and also assisted with history. I reviewed the ICU chart. - History Source History Provided By: Family Member, Medical Record Limitations to Obtaining History: Clinical Condition - Past Medical History Cardio/Vascular: Yes: Aortic Insufficiency, CAD ([place] in 2012 -> CABG ), HTN, Hyperlipdemia, [place], Other (s/p aortic valve replacement in 2012) Pulmonary: Yes: COPD, O2 Dependent (since 2012), Other (trache and vent dependent) - Past Surgical History Past Surgical History: Yes: AICD, CABG (in 2012), Cholecystectomy, Hernia Repair (right groin), Valve Replacement (in 2012) - Alcohol/Substance Use Hx Alcohol Use: No History of Substance Use: reports: None - Smoking History Smoking history: Unknown if ever smoked Have you smoked in the past 12 months: No If you are a former smoker, when did you quit?: 2012 - Social History Usual Living Arrangement: Other ([facility]) ADL: Support Services 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 History of Recent Travel: No Home Medications - Allergies Allergies/Adverse Reactions: Allergies Allergy/AdvReac Type Severity Reaction Status Date / Time No Known Allergies Allergy Verified 05/01/17 07:15 - Home Medications Home Medications: Ambulatory Orders Pantoprazole Sodium [Protonix -] 20 mg PO DAILY 08/14/15 Acetaminophen [Tylenol .Regular Strength -] 650 mg PO Q6H PRN #0 tablet Albuterol 2.5/Ipratropium 0.5 [Duoneb -] 1 amp NEB Q6H PRN #0 amp 03/05/16 Alprazolam [Xanax] 0.25 mg PO Q8H PRN #90 tablet MDD 3 03/05/16 Amino Acids/Protein Hydrolys [Prostat Sugar-Free Packet -] 30 ml PO BID@0800, 1730 #60 packet 03/05/16 Aspirin [ASA -] 81 mg PO DAILY #30 tab.chew 03/05/16 Atorvastatin Ca [Lipitor] 10 mg PO HS #30 tablet 03/05/16 Cefuroxime Axetil [Ceftin -] 500 mg PO BID #4 tablet 03/05/16 Ferrous Sulfate [Ferosul] 300 mg PO DAILY #1 bottle 03/05/16 Furosemide [Lasix -] 20 mg PO BID@0600,1400 #60 tablet 03/05/16 Insulin Detemir [Levemir Flextouch] 5 unit SQ DAILY #1 syringe 03/05/16 Isopropyl Alcohol [Alcoh-Wipe] 1 each MC BID #1 box 03/05/16 Lancets/Blood Glucose Strips [Fora [id number] Strp-Lnct] 1 each MC BID #1 combo..pkg 03/05/16 Metformin HCl [Glucophage -] 500 mg PO BID@0700,1630 #60 tablet 03/05/16 Metoprolol Succinate [Toprol XL -] 12.5 mg PO BID #60 tab.sr.24h 03/05/16 Miscellaneous Medical Supply [Glucometer Device] 1 each SCJ BID #1 kit 03/05/16 Multivitamins [Multivit ([facility] Formulary)] 1 tab PO DAILY #30 tab 03/05/16 Prednisone [Deltasone -] 7.5 mg PO DAILY #30 tablet 03/05/16 Sennosides [Senna -] 1 tab PO BID #60 tablet 03/05/16 Tamsulosin HCl [Flomax -] 0.4 mg PO DAILY@0830 #30 cap.er.24h 03/05/16 Family Disease History - Family Disease History Family Disease History: Other: Son (alive and well) Review of Systems Unable to obtain ROS, reason: pt sedated Physical Exam Vital Signs: Vital Signs Temperature 98.3 F 05/05/17 10:00 Pulse Rate 64 05/05/17 12:00 Respiratory Rate 12 05/05/17 12:15 Blood Pressure 120/63 05/05/17 12:00 O2 Sat by Pulse Oximetry (%) 98 05/05/17 09:54 Constitutional: Yes: Calm Eyes: Yes: Conjunctiva Clear Neck: Yes: Other (trache) Respiratory: Yes: Mechanically Ventilated Gastrointestinal: Yes: Soft Renal/: Yes: Cooper Present Musculoskeletal: Yes: Muscle Weakness Edema: Yes Edema: LUE: Trace, RUE: Trace, LLE: 1+, RLE: 1+ Neurological: Yes: Lethargy Labs: CBC, BMP 05/05/17 06:25 05/05/17 06:25 Laboratory Tests 04/30/17 04/30/17 05/01/17 20:09 22:52 08:30 Hgb ABG pH ABG pCO2 at Pt Temp ABG pO2 at Pt Temp ABG HCO3 Sodium Potassium Chloride Carbon Dioxide Anion Gap Creatinine Lactic Acid 5.4 H* 3.9 H* 1.2 05/04/17 05/04/17 05/05/17 05:20 07:30 06:25 Hgb 10.2 L ABG pH 7.38 ABG pCO2 at Pt Temp 46.2 H ABG pO2 at Pt Temp 86.3 ABG HCO3 26.6 H Sodium 145 Potassium 4.5 Chloride 112 H Carbon Dioxide 27 Anion Gap 6 L Creatinine 0.8 Lactic Acid 05/05/17 06:25 Hgb 9.7 L ABG pH ABG pCO2 at Pt Temp ABG pO2 at Pt Temp ABG HCO3 Sodium Potassium Chloride Carbon Dioxide Anion Gap Creatinine Lactic Acid Imaging - Results Chest X-ray: Report Reviewed Problem List - Problems (1) Azotemia Code(s): R79.89 - OTHER SPECIFIED ABNORMAL FINDINGS OF BLOOD CHEMISTRY (2) Cardiac arrest Code(s): I46.9 - CARDIAC ARREST, CAUSE UNSPECIFIED Assessment/Plan Current Medications Generic Name Dose Route Start Last Admin Trade Name Freq PRN Reason Stop Dose Admin Albuterol/Ipratropium 1 amp 05/05/17 20:00 Duoneb - NEB RQID RICKY Aspirin 81 mg 05/06/17 10:00 Asa - NGT DAILY RICKY Atorvastatin Calcium 10 mg 05/05/17 22:00 Lipitor - NGT HS RICKY Heparin Sodium (Porcine) 5,000 unit 05/05/17 22:00 Heparin - SQ TID RICKY Methylprednisolone Sodium Succinate 60 mg 05/05/17 14:45 05/05/17 17:50 Solu-Medrol - IVPB 60 mg BID RICKY Administration Morphine Sulfate 2 mg 01/10/18 14:41 Morphine Sulfate IVPUSH Q3H PRN ANXIETY Pantoprazole Sodium 40 mg 05/06/17 10:00 Protonix Packets For Oral Suspension - NGT DAILY RICKY Impression 1. s/p cardiac arrest 2. chronic respiratory failure 3. history of cardiac arrest in the past as well 4. anemia 5. hyperlipidemia 6. aoritc valve disease 7. anxiety 8. urinary retention 9. insomnia 10. DM 11. a-flutter 12. transaminitis 13. azotemia Plan - cont with tube feeds - steroids can contribute to elevated bun - consider increasing free water with feeds - repeat labs in am - evaluate mental status off of sedation - discussed with family - discussed with medical attending - check ua Dr Garrison
[2017-05-05] MEDS ORDERED: morphine SULFATE 4 MG/ML VIAL IVPUSH PRN (14:41)
[2017-05-05] MEDS: methylPREDNISolone NA SUCC 125 MG/2 ML VIAL IVPB SCH ×2 (17:50→21:42)
[2017-05-05] MEDS: ATORVASTATIN CA 10 MG TABLET (FP) NGT SCH (21:42)
[2017-05-06 01:31] LABS: URINE APPEARANCE SLCLOUDY; URINE BILIRUBIN NEGATIVE (NEGATIVE); URINE BLOOD 2+ (NEGATIVE); URINE COLOR LTYELLOW; URINE GLUCOSE (UA) NEGATIVE (NEGATIVE); URINE KETONE TRACE (NEGATIVE); URINE NITRITE NEGATIVE (NEGATIVE); URINE UROBILINOGEN NEGATIVE mg/dL (0.2-1.0)
[2017-05-06 01:36] LABS: URINE LEUK ESTERASE 1+ (NEGATIVE); URINE PROTEIN 1+ (NEGATIVE)
[2017-05-06 01:37] LABS: EPI CELLS RARE /HPF (FEW); URINE HYALINE CAST 1 /lpf; URINE MUCUS RARE
[2017-05-06] MEDS: HEPARIN NA (PORCINE) 5,000 UNITS/ML 1ML VIAL SQ SCH ×3 (05:32→21:27)
[2017-05-06 07:47] LABS: HEMATOCRIT 34.6 % (35.4-49); HEMOGLOBIN 10.8 GM/dL (11.7-16.9); MCH 24.7 pg (25.7-33.7); MCHC 31.1 g/dl (32.0-35.9); MEAN CELL VOLUME 79.3 fl (80-96); MEAN PLT VOLUME 8.1 fl (7.5-11.1); MONO % 7.8 % (3.8-10.2); NEUT % 85.2 % (42.8-82.8); PLATELET COUNT 209 K/MM3 (134-434); RBC 4.36 M/mm3 (4.00-5.60); RDW 18.7 % (11.9-15.9); WHITE BLOOD COUNT 7.7 K/mm3 (4.0-10.0)
[2017-05-06 08:07] LABS: ANION GAP 4 (8-16); BILIRUBIN,TOTAL 0.8 mg/dL (0.2-1.0); BLOOD UREA NITROGEN 39 mg/dL (7-18); CALCIUM 8.4 mg/dL (8.5-10.1); CHLORIDE 113 mmol/L (98-107); CO2 29 mmol/L (21-32); CREATININE 0.9 mg/dL (0.7-1.3); GLUCOSE,RANDOM 200 mg/dL (74-106); MAGNESIUM 2.6 mg/dL (1.8-2.4); PHOSPHOROUS 2.5 mg/dL (2.5-4.9); POTASSIUM 4.5 mmol/L (3.5-5.1); SGOT/AST 26 U/L (15-37); SGPT/ALT 83 U/L (12-78); SODIUM 146 mmol/L (136-145); TOT PROT 6.1 g/dl (6.4-8.2)
[2017-05-06 08:08] LABS: ALK PHOS 66 U/L (45-117)
[2017-05-06] MEDS: ALBUTEROL SO4 2.5/IPRATROPIUM 0.5 INH SOL 3 ML VIAL.NEB. NEB SCH ×4 (08:55→20:00)
[2017-05-06] MEDS: ASPIRIN 81 MG CHEWABLE TABLETS NGT SCH (09:54)
[2017-05-06] MEDS: methylPREDNISolone NA SUCC 125 MG/2 ML VIAL IVPB SCH ×2 (09:54→21:27)
[2017-05-06] MEDS: PANTOPRAZOLE SOD 40 MG SUSPENSION PACKET NGT SCH (09:54)
--- NOTE | 2017-05-06 11:57 | PN ---
Progress Note (short form) - Note Progress Note: s: on vent. no overnight events o: Vital Signs Temp 98.8 F 05/06/17 09:00 Pulse 76 05/06/17 09:00 Resp 20 05/06/17 09:00 BP 153/91 05/06/17 09:00 Pulse Ox 96 05/05/17 19:48 Intake & Output 05/05/17 05/05/17 05/06/17 11:59 23:59 11:59 Intake Total 160 484.8 480 Output Total 300 1350 400 Balance -140 -865.2 80 Intake: IV 160 404.8 DIPRIVAN - 1,000,000 mcg 40 4.8 In 100 ml @ 5 MCG/KG/MIN 2.449 mls/hr IVPB TITR [facility] Rx#:[id number] Normal Saline - 1,000 ml 120 400 @ 100 mls/hr IV ASDIR RICK[facility] Rx#:[id number] Tube Feeding 40 240 Tube Irrigant 40 240 Output: Urine 300 1350 400 Cooper 300 1350 400 Other: Voiding Method Indwelling Catheter Indwelling Catheter Bowel Movement No No NAD, calm, on mechanical ventilation JVD flat, neck supple diminished bs RRR nl s1, s2. no m/r/g + bs soft, no distension no le e/c/c pos dp/pt no jaundice, diaphoresis sedated Current Medications Generic Name Dose Route Start Last Admin Trade Name Freq PRN Reason Stop Dose Admin Albuterol/Ipratropium 1 amp 05/05/17 20:00 05/06/17 08:55 Duoneb - NEB 1 amp RQID [facility]ICK[facility] Administration Aspirin 81 mg 05/06/17 10:00 05/06/17 09:54 Asa - NGT 81 mg DAILY [facility] Administration Atorvastatin Calcium 10 mg 05/05/17 22:00 05/05/17 21:42 Lipitor - NGT 10 mg HS RICKY Administration Heparin Sodium (Porcine) 5,000 unit 05/05/17 22:00 05/06/17 05:32 Heparin - SQ 5,000 unit TID [facility]ICKY Administration Methylprednisolone Sodium Succinate 60 mg 05/05/17 14:45 05/06/17 09:54 Solu-Medrol - IVPB 60 mg BID [facility]ICKY Administration Morphine Sulfate 2 mg 05/06/17 11:52 Morphine Injection - IVPUSH Q3H PRN ANXIETY Pantoprazole Sodium 40 mg 05/06/17 10:00 05/06/17 09:54 Protonix Packets For Oral Suspension - NGT 40 mg DAILY [facility]ICKY Administration CBC, BMP 05/06/17 06:50 05/06/17 06:50 ecg 04/30/17: sr, pvcs, nl intervals, twi ant/lat, no st changes cxr 05/04: minimaal increased lung markings bilaterally. minimal blunting of the costophrenic angle. CXR: small right pleural effusion with underlying atelectasis vs. early infiltrate. mibi 12/2014: no ischemia, large michelle apical and septal scars, lvef 38% mibi 03/2012: large anteroapical, apical , inferior, septal scars, cannot exclude mild septal ischemia, lvef mildly reduced echo here 04/2017: nl lv size. severely reduced lvef. global. nl rv size. no mention of fn. well seated bioavr, nl fn. no ar. 1+ mac. mod tr rvsp 30-40. Echo 05/11: very TDS; severely decr LVEF, can't assess RWMAs; RV tds; valve fxn WNL Cath 05/2015 MSH: 3vd with patent DHALIWAL-LAD and SVG-RCA a/p: 71 m hx cad s/p ID and cabg and bioAVR, htn, hld, ischemic cardiomyopathy , prior VF cardiac arrest 05/2015 now s/p ICD ([place]), paroxysmal atrial flutter (brief episodes in setting of sepsis, no AC initiated), copd on home 02 , chronic resp failure s/p trach, dm, here with hypoxia/PEA arrest. anoxic brain injury 2/2 PEA cardiac arrest in the setting of acute Hypercapnic Respiratory Failure: -? trach dislodgement triggered sequence of events -doubt acs here (troponins low/non-diagnostic range, nonspecific ECG changes obtained s/p hypoxia and cardiac arrest) -no signs CHF -vent mgmt per critical care -echo here similar to priors. -Patient has ICD ([place]) with routine remote checks (via EP at [place])--if makes meaningful recovery, will f/u with EP regarding any detected arrhythmias at time of event HTN: -has been labile here. both high ? secondary to increased ICP, and transiently low requiring pressors - now off. bp now stable off anti-htn. COPD/chronic resp failure: -s/p trach, with mechanical ventilation requirement cad with h/o mi, cabg: - ACS not likely here, as above - no obstructive dz at cath 06/11 - on statin, asa ischemic cardiomyopathy with h/o VF s/p ICD - held BB, MARY here while acutely hypotensive - low threshold to resume if bp remains elevated/stable - appears clinically euvolemic-- defer diuresis for now. - has primary prevn ICD - electrolyte repletion prn. parox atrial flutter on prior admission with sepsis - episodes were brief and patient was not placed on senior care anticoagulation. - remains in sr here. s/p bioAVR -done in 2012 at time of CABG -TDS echo in past (not helpful for valve fxn)--> echo here --> well seated, no as or ar.
[2017-05-06] MEDS: morphine CARPU-JECT 10 MG/1 ML DISP.SYRIN IVPUSH PRN ×3 (12:00→23:30)
--- NOTE | 2017-05-06 12:05 | PN ---
Progress Note (short form) - Note Progress Note: PULMONARY Vented, unresponsive, tachypneic. Son at bedside. Last Vital Signs Temp Pulse Resp BP Pulse Ox 98.8 F 76 20 153/91 96 05/06/17 09:00 05/06/17 09:00 05/06/17 09:00 05/06/17 09:00 05/05/17 19:48 Gen: vented, tachypneic Heart: RRR Lung: distant breath sounds, no wheezes Abd: soft, nontender Ext: no edema CBC, BMP 05/06/17 06:50 05/06/17 06:50 Active Medications Albuterol/Ipratropium (Duoneb -) 1 amp NEB RQID [facility] Last Admin: 05/06/17 08:55 Dose: 1 amp Aspirin (Asa -) 81 mg NGT DAILY [facility] Last Admin: 05/06/17 09:54 Dose: 81 mg Atorvastatin Calcium (Lipitor -) 10 mg NGT HS [facility] Last Admin: 05/05/17 21:42 Dose: 10 mg Heparin Sodium (Porcine) (Heparin -) 5,000 unit SQ TID [facility] Last Admin: 05/06/17 05:32 Dose: 5,000 unit Methylprednisolone Sodium Succinate (Solu-Medrol -) 60 mg IVPB BID [facility] Last Admin: 05/06/17 09:54 Dose: 60 mg Morphine Sulfate (Morphine Injection -) 2 mg IVPUSH Q3H PRN PRN Reason: ANXIETY Last Admin: 05/06/17 12:00 Dose: 2 mg Pantoprazole Sodium (Protonix Packets For Oral Suspension -) 40 mg NGT DAILY [facility] Last Admin: 05/06/17 09:54 Dose: 40 mg A/P PEA Cardiac Arrest Acute on Chronic Hypercapneic and Hypoxic Respiratory Failure Severe COPD - r/o Acute Exacerbation Paroxysmal Atrial Flutter CAD s/p CABG s/p bioAVR Lactic Acidosis resolved Elevated LFTs likely ischemic injury Severe LV Systolic Dysfunction +Troponins likely Demand Ischemia HTN Hyperlipidemia DM - continue IV medrol at same dose - inhaled bronchodilators standing and PRN - taper FiO2 to keep SpO2 >90% - minimize sedation to assess mental status, can use morphine PRN for tachypnea , adjust dose for comfort - continue volume assist control, not a candidate for weaning at this time - ASA, statin - monitor lytes - enteral feeds - DVT/GI prophylaxis
--- NOTE | 2017-05-06 18:50 | PN ---
Progress Note, Physician History of Present Illness: Pt seen and examined at bedside. He is still not responsive. - Current Medication List Current Medications: Active Medications Albuterol/Ipratropium (Duoneb -) 1 amp NEB RQID [facility] Last Admin: 05/06/17 16:00 Dose: 1 amp Aspirin (Asa -) 81 mg NGT DAILY [facility] Last Admin: 05/06/17 09:54 Dose: 81 mg Atorvastatin Calcium (Lipitor -) 10 mg NGT HS [facility] Last Admin: 05/05/17 21:42 Dose: 10 mg Heparin Sodium (Porcine) (Heparin -) 5,000 unit SQ TID [facility] Last Admin: 05/06/17 14:39 Dose: 5,000 unit Methylprednisolone Sodium Succinate (Solu-Medrol -) 60 mg IVPB BID [facility] Last Admin: 05/06/17 09:54 Dose: 60 mg Morphine Sulfate (Morphine Injection -) 2 mg IVPUSH Q3H PRN PRN Reason: ANXIETY Last Admin: 05/06/17 18:02 Dose: 2 mg Pantoprazole Sodium (Protonix Packets For Oral Suspension -) 40 mg NGT DAILY [facility] Last Admin: 05/06/17 09:54 Dose: 40 mg - Objective Vital Signs: Vital Signs Temperature 99.9 F H 05/06/17 14:47 Pulse Rate 103 H 05/06/17 14:47 Respiratory Rate 14 05/06/17 17:34 Blood Pressure 150/83 05/06/17 14:47 O2 Sat by Pulse Oximetry (%) 97 05/06/17 12:16 Constitutional: Yes: Calm Eyes: Yes: Conjunctiva Clear Neck: Yes: Other (trache) Cardiovascular: Yes: S1, S2 Respiratory: Yes: Mechanically Ventilated Gastrointestinal: Yes: Soft Genitourinary: Yes: Incontinence Musculoskeletal: Yes: Muscle Weakness Edema: Yes Neurological: Yes: Lethargy Labs: CBC, BMP 05/06/17 06:50 05/06/17 06:50 INR, PTT INR 1.30 (0.82-1.09) H D 04/30/17 20:09 Problem List - Problems (1) Azotemia Code(s): R79.89 - OTHER SPECIFIED ABNORMAL FINDINGS OF BLOOD CHEMISTRY (2) Cardiac arrest Code(s): I46.9 - CARDIAC ARREST, CAUSE UNSPECIFIED Assessment/Plan Current Medications Generic Name Dose Route Start Last Admin Trade Name Freq PRN Reason Stop Dose Admin Albuterol/Ipratropium 1 amp 05/05/17 20:00 05/06/17 16:00 Duoneb - NEB 1 amp RQID [facility] Administration Aspirin 81 mg 05/06/17 10:00 05/06/17 09:54 Asa - NGT 81 mg DAILY [facility] Administration Atorvastatin Calcium 10 mg 05/05/17 22:00 05/05/17 21:42 Lipitor - NGT 10 mg HS [facility] Administration Heparin Sodium (Porcine) 5,000 unit 05/05/17 22:00 05/06/17 14:39 Heparin - SQ 5,000 unit TID [facility] Administration Methylprednisolone Sodium Succinate 60 mg 05/05/17 14:45 05/06/17 09:54 Solu-Medrol - IVPB 60 mg BID [facility] Administration Morphine Sulfate 2 mg 05/06/17 11:52 05/06/17 18:02 Morphine Injection - IVPUSH 2 mg Q3H PRN Administration ANXIETY Pantoprazole Sodium 40 mg 05/06/17 10:00 05/06/17 09:54 Protonix Packets For Oral Suspension - NGT 40 mg DAILY [facility] Administration Impression 1. s/p cardiac arrest 2. chronic respiratory failure 3. history of cardiac arrest in the past as well 4. anemia 5. hyperlipidemia 6. aoritc valve disease 7. anxiety 8. urinary retention 9. insomnia 10. DM 11. a-flutter 12. transaminitis 13. azotemia 14. hypernatremia Plan - will increase free water with tube feeds - repeat labs in am - discussed with family - cont to asses mental status - steroid taper per pulmonary Dr Garrison
--- NOTE | 2017-05-06 19:10 | PN ---
Progress Note, Physician Chief Complaint: UNRESPONSIVE TO VERBAL STIMULI FAMILY BEDSIDE - Current Medication List Current Medications: Active Medications Albuterol/Ipratropium (Duoneb -) 1 amp NEB RQID [facility] Last Admin: 05/06/17 16:00 Dose: 1 amp Aspirin (Asa -) 81 mg NGT DAILY [facility] Last Admin: 05/06/17 09:54 Dose: 81 mg Atorvastatin Calcium (Lipitor -) 10 mg NGT HS [facility] Last Admin: 05/05/17 21:42 Dose: 10 mg Heparin Sodium (Porcine) (Heparin -) 5,000 unit SQ TID [facility] Last Admin: 05/06/17 14:39 Dose: 5,000 unit Methylprednisolone Sodium Succinate (Solu-Medrol -) 60 mg IVPB BID [facility] Last Admin: 05/06/17 09:54 Dose: 60 mg Morphine Sulfate (Morphine Injection -) 2 mg IVPUSH Q3H PRN PRN Reason: ANXIETY Last Admin: 05/06/17 18:02 Dose: 2 mg Pantoprazole Sodium (Protonix Packets For Oral Suspension -) 40 mg NGT DAILY [facility] Last Admin: 05/06/17 09:54 Dose: 40 mg - Objective Vital Signs: Vital Signs Temperature 99.9 F H 05/06/17 14:47 Pulse Rate 103 H 05/06/17 14:47 Respiratory Rate 14 05/06/17 17:34 Blood Pressure 150/83 05/06/17 14:47 O2 Sat by Pulse Oximetry (%) 97 05/06/17 12:16 Constitutional: Yes: Severe Distress Eyes: Yes: Other HENT: Yes: Other Neck: Yes: WNL Cardiovascular: Yes: WNL Respiratory: Yes: Mechanically Ventilated, Orthopnea, Poor Air Entry Gastrointestinal: Yes: WNL Genitourinary: Yes: Hematuria Musculoskeletal: Yes: Muscle Weakness Edema: Yes Peripheral Pulses WNL: Yes Integumentary: Yes: WNL Wound/Incision: Yes: Clean/Dry Neurological: Yes: Unresponsive ...Motor Strength: LLE, RLE Psychiatric: Yes: Other Labs: CBC, BMP 05/06/17 06:50 05/06/17 06:50 INR, PTT INR 1.30 (0.82-1.09) H D 04/30/17 20:09 Problem List - Problems (1) Anoxia Code(s): R09.02 - HYPOXEMIA (2) Cardiac arrest Code(s): I46.9 - CARDIAC ARREST, CAUSE UNSPECIFIED (3) DVT prophylaxis Code(s): [id number] - (4) Acute and chronic respiratory failure with hypercapnia Code(s): J96.22 - ACUTE AND CHRONIC RESPIRATORY FAILURE WITH HYPERCAPNIA (5) Acute hyperkalemia Code(s): E87.5 - HYPERKALEMIA (6) Acute on chronic systolic (congestive) heart failure Code(s): I50.23 - ACUTE ON CHRONIC SYSTOLIC (CONGESTIVE) HEART FAILURE (7) Acute renal failure (ARF) Code(s): N17.9 - ACUTE KIDNEY FAILURE, UNSPECIFIED Qualifiers: Acute renal failure type: unspecified Qualified Code(s): N17.9 - Acute kidney failure, unspecified (8) Anemia Code(s): D64.9 - ANEMIA, UNSPECIFIED Qualifiers: Anemia type: other cause Other causes of anemia: chronic disease, other Qualified Code(s): D63.8 - Anemia in other chronic diseases classified elsewhere Assessment/Plan VENT SUPPORT WEAN TOLERATED NEUROLOGY EVAL POOR PROGNOSIS PULM EVAL
[2017-05-06] MEDS: ATORVASTATIN CA 10 MG TABLET (FP) NGT SCH (21:28)
[2017-05-06 22:52] LABS: ARTERIAL BLOOD GAS BASE EXCESS 2.4 meq/l (-2-2); ARTERIAL BLOOD GAS PCO2 55.4 mmHg (35-45); ARTERIAL BLOOD GAS pH 7.33 (7.35-7.45)
[2017-05-06 22:55] LABS: ALLENS TEST POSITIVE
[2017-05-06 23:05] LABS: ARTERIAL BLD GAS O2 SATURATION 99.7 % (90-98.9)
[2017-05-07 00:44] LABS: ARTERIAL BLD GAS O2 SATURATION 99.3 % (90-98.9); ARTERIAL BLOOD GAS PCO2 48.7 mmHg (35-45); ARTERIAL BLOOD GAS pH 7.37 (7.35-7.45)
[2017-05-07] MEDS: ACETAMINOPHEN 650 MG SUPP.RECT PR PRN (00:51)
[2017-05-07] MEDS: HEPARIN NA (PORCINE) 5,000 UNITS/ML 1ML VIAL SQ SCH ×3 (05:50→21:58)
[2017-05-07] MEDS: morphine CARPU-JECT 10 MG/1 ML DISP.SYRIN IVPUSH PRN ×2 (05:56→15:38)
[2017-05-07] MEDS: ALBUTEROL SO4 2.5/IPRATROPIUM 0.5 INH SOL 3 ML VIAL.NEB. NEB SCH ×4 (07:54→21:57)
[2017-05-07 08:34] LABS: HEMATOCRIT 33.4 % (35.4-49); HEMOGLOBIN 10.2 GM/dL (11.7-16.9); MCH 24.5 pg (25.7-33.7); MCHC 30.5 g/dl (32.0-35.9); MEAN CELL VOLUME 80.4 fl (80-96); MEAN PLT VOLUME 8.5 fl (7.5-11.1); PLATELET COUNT 165 K/MM3 (134-434); RBC 4.16 M/mm3 (4.00-5.60); RDW 18.3 % (11.9-15.9); WHITE BLOOD COUNT 10.5 K/mm3 (4.0-10.0)
[2017-05-07 08:43] LABS: ALBUMIN 2.7 g/dl (3.4-5.0); ANION GAP 9 (8-16); BLOOD UREA NITROGEN 54 mg/dL (7-18); CALCIUM 8.7 mg/dL (8.5-10.1); CHLORIDE 114 mmol/L (98-107); CO2 29 mmol/L (21-32); GLUCOSE,RANDOM 214 mg/dL (74-106); POTASSIUM 4.8 mmol/L (3.5-5.1); SODIUM 152 mmol/L (136-145)
[2017-05-07 08:48] LABS: ALK PHOS 84 U/L (45-117); BILIRUBIN,TOTAL 0.9 mg/dL (0.2-1.0); CREATININE 1.2 mg/dL (0.7-1.3); SGOT/AST 64 U/L (15-37); SGPT/ALT 116 U/L (12-78); TOT PROT 5.4 g/dl (6.4-8.2)
[2017-05-07] MEDS ORDERED: LEVETIRACETAM INJECTION 500 MG in DEXTROSE 5%-WATER - 100 ML IVPB ONE (10:00)
[2017-05-07] MEDS ORDERED: levETIRAcetam 500 MG/5 ML INJECTION VIAL IVPB ONE ×2 (10:08→12:24)
--- NOTE | 2017-05-07 10:42 | PN ---
Progress Note (short form) - Note Progress Note: Neurology NEUROLOGY NOTE, Covering for Vandana Please Dr. Ross consult for details. This AM, contacted by nurse as patient with jerking activity in B/L UE. patient seen at bedside and without any abnormal movements In reviewing the chart, and given his recent history, myoclonic jerks due to brain injury may occur Patient be given one dose of Keppra but at this time, I would not start antiepileptic medication unless patient has full generalized tonic-clonic seizures Myoclonic jerks are likely secondary reaction to cardiopulmonary arrest and reflexive Vital Signs Temperature 100 F H 05/07/17 09:15 Pulse Rate 79 05/07/17 09:59 Respiratory Rate 18 05/07/17 09:59 Blood Pressure 113/70 05/07/17 09:15 O2 Sat by Pulse Oximetry (%) 98 05/07/17 09:59 Exam: Unresponsive to name or tactile stimulation no significant tremors or movement disorder noted respond slightly to pain Flaccid areflexic tetraplegia. PLan: Severe, B/L cerebral dysfunction with brainstem function present. c/w Severe anoxic encephalopathy. continue ongoing medical management 1 dose of Keppra given,would not require ongoing antiepileptic medication patient may have myoclonic jerking that is reflexive to his cardiopulmonary arrest However, only if he has generalized tonic-clonic seizures that are sustained would he require antiepileptic medication neurologically stable during my visit
[2017-05-07] MEDS: ASPIRIN 81 MG CHEWABLE TABLETS NGT SCH (11:33)
[2017-05-07] MEDS: PANTOPRAZOLE SOD 40 MG SUSPENSION PACKET NGT SCH (11:33)
[2017-05-07] MEDS: methylPREDNISolone NA SUCC 125 MG/2 ML VIAL IVPB SCH ×2 (11:34→21:57)
[2017-05-07] MEDS ORDERED: levETIRAcetam 500 MG/5 ML INJECTION VIAL IVPB SCH (12:00)
[2017-05-07] MEDS: LEVETIRACETAM IVPB SCH ×2 (12:38→21:58)
[2017-05-07] MEDS: DEXTROSE 5% IVPB SCH ×2 (12:38→21:58)
[2017-05-07] MEDS: WATER IVPB SCH ×2 (12:38→21:58)
--- NOTE | 2017-05-07 12:39 | PN ---
Progress Note, Physician History of Present Illness: Pt seen and examined at bedside. He appears to be having seizure like activity of right arm and right facial twitching. - Current Medication List Current Medications: Active Medications Acetaminophen (Tylenol Suppository -) 650 mg LA Q6H PRN PRN Reason: FEVER Last Admin: 05/07/17 00:51 Dose: 650 mg Albuterol/Ipratropium (Duoneb -) 1 amp NEB RQID [facility] Last Admin: 05/07/17 11:03 Dose: 1 amp Aspirin (Asa -) 81 mg NGT DAILY [facility] Last Admin: 05/07/17 11:33 Dose: 81 mg Atorvastatin Calcium (Lipitor -) 10 mg NGT HS [facility] Last Admin: 05/06/17 21:28 Dose: 10 mg Heparin Sodium (Porcine) (Heparin -) 5,000 unit SQ TID [facility] Last Admin: 05/07/17 05:50 Dose: 5,000 unit Levetiracetam 750 mg/ Dextrose 107.5 mls @ 430 mls/hr IVPB BID [facility] Methylprednisolone Sodium Succinate (Solu-Medrol -) 60 mg IVPB BID [facility] Last Admin: 05/07/17 11:34 Dose: 60 mg Morphine Sulfate (Morphine Injection -) 2 mg IVPUSH Q3H PRN PRN Reason: ANXIETY Last Admin: 05/07/17 05:56 Dose: 2 mg Pantoprazole Sodium (Protonix Packets For Oral Suspension -) 40 mg NGT DAILY [facility] Last Admin: 05/07/17 11:33 Dose: 40 mg - Objective Vital Signs: Vital Signs Temperature 100 F H 05/07/17 09:15 Pulse Rate 79 05/07/17 09:59 Respiratory Rate 18 05/07/17 09:59 Blood Pressure 113/70 05/07/17 09:15 O2 Sat by Pulse Oximetry (%) 98 05/07/17 09:59 Constitutional: Yes: Mild Distress Neck: Yes: Other (trache) Cardiovascular: Yes: S1, S2 Respiratory: Yes: Mechanically Ventilated Gastrointestinal: Yes: Soft Genitourinary: Yes: Cooper Present Musculoskeletal: Yes: Muscle Weakness Edema: Yes Neurological: Yes: Lethargy, Seizure Labs: CBC, BMP 05/07/17 06:55 05/07/17 06:55 INR, PTT INR 1.30 (0.82-1.09) H D 04/30/17 20:09 Problem List - Problems (1) Azotemia Code(s): R79.89 - OTHER SPECIFIED ABNORMAL FINDINGS OF BLOOD CHEMISTRY (2) Cardiac arrest Code(s): I46.9 - CARDIAC ARREST, CAUSE UNSPECIFIED Assessment/Plan Current Medications Generic Name Dose Route Start Last Admin Trade Name Freq PRN Reason Stop Dose Admin Acetaminophen 650 mg 05/06/17 23:57 05/07/17 00:51 Tylenol Suppository - LA 650 mg Q6H PRN Administration FEVER Albuterol/Ipratropium 1 amp 05/05/17 20:00 05/07/17 11:03 Duoneb - NEB 1 amp RQID [facility] Administration Aspirin 81 mg 05/06/17 10:00 05/07/17 11:33 Asa - NGT 81 mg DAILY [facility] Administration Atorvastatin Calcium 10 mg 05/05/17 22:00 05/06/17 21:28 Lipitor - NGT 10 mg HS [facility] Administration Heparin Sodium (Porcine) 5,000 unit 05/05/17 22:00 05/07/17 05:50 Heparin - SQ 5,000 unit TID [facility] Administration Levetiracetam 750 mg/ Dextrose 107.5 mls @ 430 mls/hr 05/07/17 12:30 IVPB BID [facility] Methylprednisolone Sodium Succinate 60 mg 05/05/17 14:45 05/07/17 11:34 Solu-Medrol - IVPB 60 mg BID [facility] Administration Morphine Sulfate 2 mg 05/06/17 11:52 05/07/17 05:56 Morphine Injection - IVPUSH 2 mg Q3H PRN Administration ANXIETY Pantoprazole Sodium 40 mg 05/06/17 10:00 05/07/17 11:33 Protonix Packets For Oral Suspension - NGT 40 mg DAILY [facility] Administration Impression 1. s/p cardiac arrest 2. chronic respiratory failure 3. history of cardiac arrest in the past as well 4. anemia 5. hyperlipidemia 6. aoritc valve disease 7. anxiety 8. urinary retention 9. insomnia 10. DM 11. a-flutter 12. transaminitis 13. azotemia 14. hypernatremia Plan - free water was not increase, spoke to nurse to increase flushes - repeat labs in am - called neuro bout seizures and they will adjust meds - case discussed with pts son - discussed with medical attending - will start hypotonic fluids - monitor urine output and watch for signs of DI - prognosis is poor Dr Garrison
[2017-05-07 13:01] LABS: MAGNESIUM 2.8 mg/dL (1.8-2.4); PHOSPHOROUS 3.2 mg/dL (2.5-4.9)
--- NOTE | 2017-05-07 13:20 | PN ---
Progress Note, Physician Chief Complaint: NOTIFIED BY NURSE PATIENT HAVING FACIAL TWITCHING SON BEDSIDE NEUROLGY NOTIFIED - Current Medication List Current Medications: Active Medications Acetaminophen (Tylenol Suppository -) [address] Q6H PRN PRN Reason: FEVER Last Admin: 05/07/17 00:51 Dose: 650 mg Albuterol/Ipratropium (Duoneb -) 1 amp NEB RQID [facility] Last Admin: 05/07/17 11:03 Dose: 1 amp Aspirin (Asa -) 81 mg NGT DAILY [facility] Last Admin: 05/07/17 11:33 Dose: 81 mg Atorvastatin Calcium (Lipitor -) 10 mg NGT HS [facility] Last Admin: 05/06/17 21:28 Dose: 10 mg Heparin Sodium (Porcine) (Heparin -) 5,000 unit SQ TID [facility] Last Admin: 05/07/17 05:50 Dose: 5,000 unit Levetiracetam 750 mg/ Dextrose 107.5 mls @ 430 mls/hr IVPB BID [facility] Last Admin: 05/07/17 12:38 Dose: 430 mls/hr Sodium Chloride (1/2 Normal Saline) 1,000 mls @ 42 mls/hr IV ASDIR [facility] Methylprednisolone Sodium Succinate (Solu-Medrol -) 60 mg IVPB BID [facility] Last Admin: 05/07/17 11:34 Dose: 60 mg Morphine Sulfate (Morphine Injection -) 2 mg IVPUSH Q3H PRN PRN Reason: ANXIETY Last Admin: 05/07/17 05:56 Dose: 2 mg Pantoprazole Sodium (Protonix Packets For Oral Suspension -) 40 mg NGT DAILY [facility] Last Admin: 05/07/17 11:33 Dose: 40 mg - Objective Vital Signs: Vital Signs Temperature 100 F H 05/07/17 09:15 Pulse Rate 79 05/07/17 09:59 Respiratory Rate 18 05/07/17 09:59 Blood Pressure 113/70 05/07/17 09:15 O2 Sat by Pulse Oximetry (%) 98 05/07/17 09:59 Constitutional: Yes: Severe Distress Eyes: Yes: Other HENT: Yes: Other Neck: Yes: Other Cardiovascular: Yes: Regular Rate and Rhythm Respiratory: Yes: Mechanically Ventilated, Poor Air Entry Gastrointestinal: Yes: WNL Genitourinary: Yes: Cooper Present Musculoskeletal: Yes: Muscle Weakness Extremities: Yes: Other Edema: Yes Peripheral Pulses WNL: Yes Integumentary: Yes: Rash Wound/Incision: Yes: Dressing Dry and Intact Neurological: Yes: Pre-Existing Deficit ...Motor Strength: LLE, RLE Psychiatric: Yes: Other Labs: CBC, BMP 05/07/17 06:55 05/07/17 06:55 INR, PTT INR 1.30 (0.82-1.09) H D 04/30/17 20:09 Problem List - Problems (1) Anoxia Code(s): R09.02 - HYPOXEMIA (2) Cardiac arrest Code(s): I46.9 - CARDIAC ARREST, CAUSE UNSPECIFIED (3) DVT prophylaxis Code(s): [id number] - (4) Acute and chronic respiratory failure with hypercapnia Code(s): J96.22 - ACUTE AND CHRONIC RESPIRATORY FAILURE WITH HYPERCAPNIA (5) Acute hyperkalemia Code(s): E87.5 - HYPERKALEMIA (6) Acute on chronic systolic (congestive) heart failure Code(s): I50.23 - ACUTE ON CHRONIC SYSTOLIC (CONGESTIVE) HEART FAILURE (7) Acute renal failure (ARF) Code(s): N17.9 - ACUTE KIDNEY FAILURE, UNSPECIFIED Qualifiers: Acute renal failure type: unspecified Qualified Code(s): N17.9 - Acute kidney failure, unspecified (8) Anemia Code(s): D64.9 - ANEMIA, UNSPECIFIED Qualifiers: Anemia type: other cause Other causes of anemia: chronic disease, other Qualified Code(s): D63.8 - Anemia in other chronic diseases classified elsewhere Assessment/Plan KEPPRA IV STARTED FOR SEIZURES NEUROLGY EVAL PULM SUPPORT OVERALL PROGNOSIS POOR DISCUSSED WITH SON RECOMMENDING TERMINAL WEANING WILL AWAIT FAMILY DECISION
[2017-05-07] MEDS: SODIUM CHLORIDE 0.45% 1,000 ML IV SCH ×2 (13:39→21:59)
[2017-05-07] MEDS ORDERED: ALTEPLASE 2 MG VIAL CVP ONE ×3 (14:00→17:30)
--- NOTE | 2017-05-07 15:35 | PN ---
Progress Note (short form) - Note Progress Note: PULMONARY CHART REVIEWED REMAINS ON VENT SETTINGS ADEQUATE/ABG REVIEWED NO SIGNIFICANT CHANGE IN EXAM PEA Cardiac Arrest Acute on Chronic Hypercapneic and Hypoxic Respiratory Failure Severe COPD - r/o Acute Exacerbation Paroxysmal Atrial Flutter CAD s/p CABG s/p bioAVR Lactic Acidosis resolved Elevated LFTs likely ischemic injury Severe LV Systolic Dysfunction +Troponins likely Demand Ischemia HTN Hyperlipidemia DM - continue IV medrol at same dose - inhaled bronchodilators standing and PRN - taper FiO2 to keep SpO2 >90% - minimize sedation to assess mental status, can use morphine PRN for tachypnea , adjust dose for comfort - continue volume assist control, not a candidate for weaning at this time - ASA, statin - monitor lytes - enteral feeds - DVT/GI prophylaxis Evelin ALVARADO MD
[2017-05-07] MEDS: INSULIN SLIDING SCALE (NOVOLOG) 1 VIAL SQ SCH (17:52)
[2017-05-07] MEDS ORDERED: LORazepam 2 MG/ML SDV VIAL ONE (18:41)
[2017-05-07] MEDS ORDERED: LORazepam 2 MG/ML SDV VIAL IVPUSH ONE (18:48)
--- NOTE | 2017-05-07 19:06 | RAPID ---
Physical Examination Vital Signs: Vital Signs Temperature 98.8 F 05/07/17 15:17 Pulse Rate 103 H 05/07/17 15:17 Respiratory Rate 26 H 05/07/17 15:17 Blood Pressure 137/58 05/07/17 15:17 O2 Sat by Pulse Oximetry (%) 98 05/07/17 09:59 Constitutional: Yes: Well Nourished, Diaphoresis HENT: Yes: Atraumatic, Normocephalic Neck: Yes: Supple, Other (trached) Cardiovascular: Yes: Tachycardia, S1, S2 Respiratory: Yes: Mechanically Ventilated, Rhonchi Gastrointestinal: Yes: Soft. No: Distention Edema: Yes (throughout) Neurological: Yes: Seizure Labs: CBC, BMP 05/07/17 06:55 05/07/17 06:55 Rapid Response - Rapid Response Assessment: 71M with PMH of [place] (2012), s/p Aortic Valve Replacement (2012), CABG, HTN, HLD, COPD (trach dependent), admitted s/p Cardiac Arrest, Acute Respiratory Failure, Hypercapnia. Rapid called because pt was having a seizure. Team responded immediately. VS: HR 130's, BP 150/80, O2 sat 99% vented Stat EKG -> sinus tachycardia Stat trops -> slightly elevated, though trending down Stat lactic acid -> wnl Stat CXR -> pulmonary vascular congestion and small pleural effusions, overall similar to prior study. Ativan 2mg IVpush given -> with good effect Shaking/seizing likely 2/2 anoxic brain injury. Will f/u stat orders.
[2017-05-07] MEDS ORDERED: SODIUM CHLORIDE 1,000 ML IV STA (19:26)
[2017-05-07] MEDS ORDERED: SODIUM CHLORIDE 500 ML IV STA (19:26)
[2017-05-07 19:36] LABS: ARTERIAL BLOOD GAS BASE EXCESS 2.3 meq/l (-2-2); ARTERIAL BLOOD GAS pH 7.36 (7.35-7.45)
[2017-05-07 19:38] LABS: ALLENS TEST POSITIVE
--- NOTE | 2017-05-07 20:00 | HOSP ---
Physical Examination Vital Signs: Vital Signs Temperature 98.8 F 05/07/17 15:17 Pulse Rate 96 H 05/07/17 19:04 Respiratory Rate 18 05/07/17 19:04 Blood Pressure 97/50 05/07/17 19:04 O2 Sat by Pulse Oximetry (%) 98 05/07/17 09:59 Constitutional: Yes: Well Nourished, Diaphoresis Neck: Yes: Supple, Other (mechanically vented) Cardiovascular: Yes: Tachycardia, S1, S2 Respiratory: Yes: Mechanically Ventilated, Rhonchi Gastrointestinal: Yes: Soft. No: Distention Edema: Yes Labs: CBC, BMP 05/07/17 06:55 05/07/17 06:55 Hospitalist Encounter Assessment: 71M with PMH of [place] (2012), s/p Aortic Valve Replacement (2012), CABG, HTN, HLD, COPD (trach dependent), admitted s/p Cardiac Arrest, Acute Respiratory Failure, Hypercapnia Code 99 called, team responded immediately. Pt had faint pulse. VS: HR 91, BP 88/53, O2 sat 100% - vented BVM on trach was performed to assist breathing. Pt's family (son and [id number]) present at bedside, indicated pt is DNR. Son called pt's , who declined to come to the hospital but agrees with DNR. Pt should continue receiving mechanical ventilation, but no resuscitative measures are to be taken. Son requested no pressors also. NS 500 ml bolus given CXR from prior Rapid reviewed -> mild congestive cephalization read by team Stat labs ordered: - POC -> 200 - abg -> relatively stable - CBC -> reveals dilutional drop in WBC, H/H and platelets - CMP -> persistent hypernatremia - mg, phos -> wnl - coags -> stable VS: HR 84, BP 77/42, O2 sat 100% Day Team to f/u. Visit type - Emergency Visit Emergency Visit: Yes ED Registration Date: 04/30/17 Care time: The patient presented to the Emergency Department on the above date and was hospitalized for further evaluation of their emergent condition. - New Patient This patient is new to me today: No - Critical Care Critical Care patient: No
[2017-05-07 21:25] LABS: HEMATOCRIT 26.1 % (35.4-49); MCH 24.5 pg (25.7-33.7); MCHC 30.7 g/dl (32.0-35.9); MEAN PLT VOLUME 8.9 fl (7.5-11.1); PLATELET COUNT 141 K/MM3 (134-434); RBC 3.27 M/mm3 (4.00-5.60); RDW 18.7 % (11.9-15.9); WHITE BLOOD COUNT 7.6 K/mm3 (4.0-10.0)
[2017-05-07] MEDS ORDERED: PT OWN MED DRAWER 7, Y5N ONE (21:39)
[2017-05-07 21:48] LABS: INR 1.18 (0.82-1.09); PROTHROMBIN TIME (PATIENT) 13.3 SEC (9.98-11.88)
[2017-05-07 21:51] LABS: ACTIVATED PTT 29.8 SECONDS (26.9-34.4)
[2017-05-07] MEDS: ATORVASTATIN CA 10 MG TABLET (FP) NGT SCH (21:58)
[2017-05-07 22:07] LABS: ALBUMIN 2.1 g/dl (3.4-5.0); ANION GAP 5 (8-16); BILIRUBIN,TOTAL 0.7 mg/dL (0.2-1.0); BLOOD UREA NITROGEN 54 mg/dL (7-18); CALCIUM 7.7 mg/dL (8.5-10.1); CHLORIDE 118 mmol/L (98-107); CO2 30 mmol/L (21-32); GLUCOSE,RANDOM 191 mg/dL (74-106); MAGNESIUM 2.3 mg/dL (1.8-2.4); PHOSPHOROUS 2.8 mg/dL (2.5-4.9); POTASSIUM 4.6 mmol/L (3.5-5.1); SGOT/AST 28 U/L (15-37); SGPT/ALT 94 U/L (12-78); SODIUM 153 mmol/L (136-145); TOT PROT 4.3 g/dl (6.4-8.2)
[2017-05-07 22:08] LABS: ALK PHOS 66 U/L (45-117)
[2017-05-08] MEDS: INSULIN SLIDING SCALE (NOVOLOG) 1 VIAL SQ SCH ×5 (00:45→21:38)
[2017-05-08] MEDS ORDERED: LORazepam 2 MG/ML SDV VIAL ONE (01:59)
[2017-05-08] MEDS ORDERED: LORazepam 2 MG/ML SDV VIAL IVPUSH ONE (02:00)
[2017-05-08] MEDS ORDERED: levETIRAcetam 500 MG/5 ML INJECTION VIAL IVPB ONE (02:11)
--- NOTE | 2017-05-08 02:11 | RAPID ---
Physical Examination Vital Signs: Vital Signs Temperature 98.8 F 05/07/17 15:17 Pulse Rate 82 05/07/17 19:45 Respiratory Rate 18 05/08/17 00:52 Blood Pressure 74/47 05/07/17 19:45 O2 Sat by Pulse Oximetry (%) 99 05/07/17 19:40 Constitutional: Yes: Well Nourished, Diaphoresis HENT: Yes: Atraumatic, Normocephalic Neck: Yes: Supple, Other (trached) Cardiovascular: Yes: Tachycardia, S1, S2 Respiratory: Yes: Mechanically Ventilated Gastrointestinal: Yes: Soft. No: Distention Edema: Yes Neurological: Yes: Seizure Labs: CBC, BMP 05/07/17 20:20 05/07/17 20:20 Rapid Response - Rapid Response Assessment: 71M with PMH of [place] (2012), s/p Aortic Valve Replacement (2012), CABG, HTN, HLD, COPD (trach dependent), admitted s/p Cardiac Arrest, Acute Respiratory Failure, Hypercapnia. Rapid called because pt was having a seizure. Team responded immediately. VS: HR 113, BP 135/52, O2 Sat 100% POC blood glucose -> 169 Ativan 2mg IVpush given with immediate effect Neurologist (Dr. Vegas) contacted and recs appreciated: Keppra 1g now and start 1500mg BID for tomorrow, order EEG, Depakote can be added if needed VS: HR 96, BP 126/65, O2 Sat 100% Ativan prn ordered
[2017-05-08] MEDS: HEPARIN NA (PORCINE) 5,000 UNITS/ML 1ML VIAL SQ SCH ×3 (06:33→21:37)
[2017-05-08 07:48] LABS: ALBUMIN 2.5 g/dl (3.4-5.0); ANION GAP 3 (8-16); BLOOD UREA NITROGEN 49 mg/dL (7-18); CHLORIDE 116 mmol/L (98-107); CO2 32 mmol/L (21-32); CREATININE 0.9 mg/dL (0.7-1.3); GLUCOSE,RANDOM 189 mg/dL (74-106); POTASSIUM 4.4 mmol/L (3.5-5.1); SGOT/AST 21 U/L (15-37); SGPT/ALT 96 U/L (12-78); SODIUM 151 mmol/L (136-145)
[2017-05-08 07:50] LABS: ALK PHOS 74 U/L (45-117); BILIRUBIN,TOTAL 0.9 mg/dL (0.2-1.0); TOT PROT 4.9 g/dl (6.4-8.2)
[2017-05-08] MEDS: ALBUTEROL SO4 2.5/IPRATROPIUM 0.5 INH SOL 3 ML VIAL.NEB. NEB SCH ×4 (08:40→21:05)
[2017-05-08] MEDS: methylPREDNISolone NA SUCC 125 MG/2 ML VIAL IVPB SCH ×2 (09:33→21:37)
[2017-05-08] MEDS: PANTOPRAZOLE SOD 40 MG SUSPENSION PACKET NGT SCH (09:33)
[2017-05-08] MEDS: ASPIRIN 81 MG CHEWABLE TABLETS NGT SCH (09:33)
[2017-05-08] MEDS ORDERED: levETIRAcetam 500 MG/5 ML INJECTION VIAL IVPB SCH (10:00)
[2017-05-08] MEDS: SODIUM CHLORIDE IVPB SCH ×2 (10:02→21:36)
[2017-05-08] MEDS: LEVETIRACETAM IVPB SCH ×2 (10:02→21:36)
--- NOTE | 2017-05-08 12:21 | PN ---
Progress Note (short form) - Note Progress Note: RENAL pt seen and examined family by bedside Pt appears comfortable Last Vital Signs Temp Pulse Resp BP Pulse Ox 99.6 F 80 18 156/80 100 05/08/17 06:00 05/08/17 10:00 05/08/17 10:00 05/08/17 10:00 05/08/17 09:[address] lungs clear anteriorly, bilaterally cvs s1s2 rr abd soft ext +edema neuro not responsive CBC, BMP 05/07/17 20:20 05/08/17 07:00 Current Medications Generic Name Dose Route Start Last Admin Trade Name Freq PRN Reason Stop Dose Admin Acetaminophen 650 mg 05/06/17 23:57 05/07/17 00:51 Tylenol Suppository - [place] 650 mg Q6H PRN Administration FEVER Albuterol/Ipratropium 1 amp 05/05/17 20:00 05/08/17 11:46 Duoneb - NEB 1 amp RQID [facility] Administration Alteplase, Recombinant 2 mg 05/07/17 17:30 Cathflo Activase - CVP 05/07/17 17:31 ONCE ONE Aspirin 81 mg 05/06/17 10:00 05/08/17 09:33 Asa - NGT 81 mg DAILY [facility] Administration Atorvastatin Calcium 10 mg 05/05/17 22:00 05/07/17 21:58 Lipitor - NGT 10 mg HS [facility] Administration Heparin Sodium (Porcine) 5,000 unit 05/05/17 22:00 05/08/17 06:33 Heparin - SQ 5,000 unit TID [facility] Administration Sodium Chloride 1,000 mls @ 42 mls/hr 05/07/17 12:45 05/07/17 21:59 1/2 Normal Saline IV 42 mls/hr ASDIR [facility] Administration Levetiracetam 1,500 mg/ Sodium 115 mls @ 460 mls/hr 05/08/17 10:00 05/08/17 10:02 Chloride IVPB 460 mls/hr BID [facility] Administration Insulin Aspart 1 vial 05/07/17 16:30 05/08/17 06:33 Novolog Vial Sliding Scale - SQ Not Given ACHS [facility] Protocol Lorazepam 2 mg 05/08/17 02:01 Ativan Injection - IVPUSH Q4H PRN ANXIETY Methylprednisolone Sodium Succinate 60 mg 05/05/17 14:45 05/08/17 09:33 Solu-Medrol - IVPB 60 mg BID [facility] Administration Morphine Sulfate 2 mg 05/06/17 11:52 05/07/17 15:38 Morphine Injection - IVPUSH 2 mg Q3H PRN Administration ANXIETY Pantoprazole Sodium 40 mg 05/06/17 10:00 05/08/17 09:33 Protonix Packets For Oral Suspension - NGT 40 mg DAILY [facility] Administration Impression 1. s/p cardiac arrest 2. chronic respiratory failure 3. history of cardiac arrest in the past as well 4. anemia 5. hyperlipidemia 6. aortic valve disease 7. anxiety 8. urinary retention 9. insomnia 10. DM 11. a-flutter 12. transaminitis 13. azotemia 14. hypernatremia Plan - continue free water - repeat labs in am - change iv to d5w - monitor urine output and watch for signs of DI - prognosis is poor MV
[2017-05-08] MEDS ORDERED: DEXTROSE 5%-WATER - 1,000 ML IV SCH (12:30)
--- NOTE | 2017-05-08 12:40 | PN ---
Progress Note, Physician Chief Complaint: FAMILY BEDSIDE NO CHANGE STILL UNRESPONSIVE - Current Medication List Current Medications: Active Medications Acetaminophen (Tylenol Suppository -) 650 mg [place] Q6H PRN PRN Reason: FEVER Last Admin: 05/07/17 00:51 Dose: 650 mg Albuterol/Ipratropium (Duoneb -) 1 amp NEB RQID [facility] Last Admin: 05/08/17 11:46 Dose: 1 amp Alteplase, Recombinant (Cathflo Activase -) 2 mg CVP ONCE ONE Stop: 05/07/17 17:31 Aspirin (Asa -) 81 mg NGT DAILY [facility] Last Admin: 05/08/17 09:33 Dose: 81 mg Atorvastatin Calcium (Lipitor -) 10 mg NGT HS [facility] Last Admin: 05/07/17 21:58 Dose: 10 mg Heparin Sodium (Porcine) (Heparin -) 5,000 unit SQ TID [facility] Last Admin: 05/08/17 06:33 Dose: 5,000 unit Levetiracetam 1,500 mg/ Sodium (Chloride) 115 mls @ 460 mls/hr IVPB BID [facility] Last Admin: 05/08/17 10:02 Dose: 460 mls/hr Dextrose (D5w -) 1,000 mls @ 42 mls/hr IV .[id number] [facility] Insulin Aspart (Novolog Vial Sliding Scale -) 1 vial SQ ACHS [facility] PRN Reason: Protocol Last Admin: 05/08/17 12:24 Dose: Not Given Lorazepam (Ativan Injection -) 2 mg IVPUSH Q4H PRN PRN Reason: ANXIETY Methylprednisolone Sodium Succinate (Solu-Medrol -) 60 mg IVPB BID [facility] Last Admin: 05/08/17 09:33 Dose: 60 mg Morphine Sulfate (Morphine Injection -) 2 mg IVPUSH Q3H PRN PRN Reason: ANXIETY Last Admin: 05/07/17 15:38 Dose: 2 mg Pantoprazole Sodium (Protonix Packets For Oral Suspension -) 40 mg NGT DAILY [facility] Last Admin: 05/08/17 09:33 Dose: 40 mg - Objective Vital Signs: Vital Signs Temperature 99.6 F 05/08/17 06:00 Pulse Rate 80 05/08/17 10:00 Respiratory Rate 18 05/08/17 10:00 Blood Pressure 156/80 05/08/17 10:00 O2 Sat by Pulse Oximetry (%) 100 05/08/17 09:00 Constitutional: Yes: Severe Distress Eyes: Yes: Other Cardiovascular: Yes: Other Respiratory: Yes: Mechanically Ventilated Genitourinary: Yes: Cooper Present Musculoskeletal: Yes: Muscle Weakness Extremities: Yes: Other Peripheral Pulses WNL: Yes Integumentary: Yes: Other Wound/Incision: Yes: Other Neurological: Yes: Unresponsive Labs: CBC, BMP 05/07/17 20:20 05/08/17 07:00 INR, PTT INR 1.18 (0.82-1.09) H 05/07/17 20:20 Problem List - Problems (1) Anoxia Code(s): R09.02 - HYPOXEMIA (2) Cardiac arrest Code(s): I46.9 - CARDIAC ARREST, CAUSE UNSPECIFIED (3) DVT prophylaxis Code(s): OCR9005 - (4) Acute and chronic respiratory failure with hypercapnia Code(s): J96.22 - ACUTE AND CHRONIC RESPIRATORY FAILURE WITH HYPERCAPNIA (5) Acute hyperkalemia Code(s): E87.5 - HYPERKALEMIA (6) Acute on chronic systolic (congestive) heart failure Code(s): I50.23 - ACUTE ON CHRONIC SYSTOLIC (CONGESTIVE) HEART FAILURE (7) Acute renal failure (ARF) Code(s): N17.9 - ACUTE KIDNEY FAILURE, UNSPECIFIED Qualifiers: Acute renal failure type: unspecified Qualified Code(s): N17.9 - Acute kidney failure, unspecified (8) Anemia Code(s): D64.9 - ANEMIA, UNSPECIFIED Qualifiers: Anemia type: other cause Other causes of anemia: chronic disease, other Qualified Code(s): D63.8 - Anemia in other chronic diseases classified elsewhere Assessment/Plan PALLIATIVE CARE WITHDRAWEL OF CARE COMFORT MEASURES ONLY STOP LAB DRAWS
[2017-05-08] MEDS: LORazepam 2 MG/ML SDV VIAL IVPUSH PRN (13:10)
[2017-05-08] MEDS: DEXTROSE 5%-WATER - 1,000 ML IV SCH (14:33)
--- NOTE | 2017-05-08 15:13 | PN ---
Progress Note (short form) - Note Progress Note: PULMONARY Events yesterday noted. Increased seizure activity. Son at bedside. Last Vital Signs Temp Pulse Resp BP Pulse Ox 99.5 F 85 17 149/77 100 05/08/17 13:12 05/08/17 13:12 05/08/17 13:12 05/08/17 13:12 05/08/17 09:00 Gen: vented, less tachypneic Heart: RRR Lung: distant breath sounds, no wheezes Abd: soft, nontender Ext: no edema CBC, BMP 05/07/17 20:20 05/08/17 07:00 Active Medications Acetaminophen (Tylenol Suppository -) 650 mg [place] Q6H PRN PRN Reason: FEVER Last Admin: 05/07/17 00:51 Dose: 650 mg Albuterol/Ipratropium (Duoneb -) 1 amp NEB RQID [facility] Last Admin: 05/08/17 11:46 Dose: 1 amp Alteplase, Recombinant (Cathflo Activase -) 2 mg CVP ONCE ONE Stop: 05/07/17 17:31 Aspirin (Asa -) 81 mg NGT DAILY [facility] Last Admin: 05/08/17 09:33 Dose: 81 mg Atorvastatin Calcium (Lipitor -) 10 mg NGT HS [facility] Last Admin: 05/07/17 21:58 Dose: 10 mg Heparin Sodium (Porcine) (Heparin -) 5,000 unit SQ TID [facility] Last Admin: 05/08/17 14:21 Dose: 5,000 unit Levetiracetam 1,500 mg/ Sodium (Chloride) 115 mls @ 460 mls/hr IVPB BID [facility] Last Admin: 05/08/17 10:02 Dose: 460 mls/hr Dextrose (D5w -) 1,000 mls @ 42 mls/hr IV Q23H [facility] Last Admin: 05/08/17 14:33 Dose: 42 mls/hr Insulin Aspart (Novolog Vial Sliding Scale -) 1 vial SQ ACHS [facility] PRN Reason: Protocol Last Admin: 05/08/17 12:24 Dose: Not Given Lorazepam (Ativan Injection -) 2 mg IVPUSH Q4H PRN PRN Reason: ANXIETY Last Admin: 05/08/17 13:10 Dose: 2 mg Methylprednisolone Sodium Succinate (Solu-Medrol -) 60 mg IVPB BID [facility] Last Admin: 05/08/17 09:33 Dose: 60 mg Morphine Sulfate (Morphine Injection -) 2 mg IVPUSH Q3H PRN PRN Reason: ANXIETY Last Admin: 05/07/17 15:38 Dose: 2 mg Pantoprazole Sodium (Protonix Packets For Oral Suspension -) 40 mg NGT DAILY [facility] Last Admin: 05/08/17 09:33 Dose: 40 mg A/P PEA Cardiac Arrest Acute on Chronic Hypercapneic and Hypoxic Respiratory Failure Severe COPD - r/o Acute Exacerbation Paroxysmal Atrial Flutter CAD s/p CABG s/p bioAVR Lactic Acidosis resolved Elevated LFTs likely ischemic injury Severe LV Systolic Dysfunction +Troponins likely Demand Ischemia HTN Hyperlipidemia DM Seizures - antiepileptics per neuro - continue IV medrol at same dose - inhaled bronchodilators standing and PRN - taper FiO2 to keep SpO2 >90% - minimize sedation to assess mental status, can use morphine PRN for tachypnea , adjust dose for comfort - continue volume assist control, not a candidate for weaning at this time - ASA, statin - monitor lytes - enteral feeds - DVT/GI prophylaxis - poor overall prognosis
--- NOTE | 2017-05-08 16:53 | EKG ---
Test Reason : Blood Pressure : / mmHG Vent. Rate : 107 BPM Atrial Rate : 107 BPM P-R Int : 000 ms QRS Dur : 098 ms QT Int : 300 ms P-R-T Axes : 091 -57 100 degrees QTc Int : 400 ms SINUS TACHYCARDIA WITH OCCASIONAL PREMATURE VENTRICULAR COMPLEXES LEFT AXIS DEVIATION LOW VOLTAGE QRS INFERIOR INFARCT (CITED ON OR BEFORE 27-FEB-2016) CANNOT RULE OUT ANTERIOR INFARCT , AGE UNDETERMINED NONSPECIFIC T WAVE ABNORMALITY ABNORMAL ECG WHEN COMPARED WITH ECG OF 30-APR-2017 19:47, SIGNIFICANT CHANGES HAVE OCCURRED Confirmed by ODELL HAUSER MD ([id number]) on 05/08/2017 4:53:20 PM Referred By: Confirmed By:ODELL HAUSER MD
[2017-05-08] MEDS: ACETAMINOPHEN 650 MG SUPP.RECT PR PRN (21:37)
[2017-05-08] MEDS: ATORVASTATIN CA 10 MG TABLET (FP) NGT SCH (21:37)
[2017-05-09] MEDS: HEPARIN NA (PORCINE) 5,000 UNITS/ML 1ML VIAL SQ SCH (06:16)
[2017-05-09] MEDS: INSULIN SLIDING SCALE (NOVOLOG) 1 VIAL SQ SCH ×2 (06:17→11:21)
[2017-05-09] MEDS: ALBUTEROL SO4 2.5/IPRATROPIUM 0.5 INH SOL 3 ML VIAL.NEB. NEB SCH ×2 (08:40→12:38)
[2017-05-09] MEDS ORDERED: PT OWN MED DRAWER 7, Y5N ONE (09:12)
[2017-05-09] MEDS: ASPIRIN 81 MG CHEWABLE TABLETS NGT SCH (10:32)
[2017-05-09] MEDS: PANTOPRAZOLE SOD 40 MG SUSPENSION PACKET NGT SCH (10:32)
[2017-05-09] MEDS: methylPREDNISolone NA SUCC 125 MG/2 ML VIAL IVPB SCH (10:32)
[2017-05-09] MEDS: SODIUM CHLORIDE IVPB SCH ×2 (10:33→21:04)
[2017-05-09] MEDS: LEVETIRACETAM IVPB SCH ×2 (10:33→21:04)
--- NOTE | 2017-05-09 11:27 | PN ---
Progress Note (short form) - Note Progress Note: RENAL pt seen and examined family by bedside Pt appears comfortable Last Vital Signs Temp Pulse Resp BP Pulse Ox 99.1 F 96 H 18 138/70 97 05/09/17 09:00 05/09/17 09:00 05/09/17 09:00 05/09/17 09:00 05/09/17 08:[address] lungs clear anteriorly, bilaterally cvs s1s2 rr abd soft ext +edema neuro not responsive CBC, BMP 05/07/17 20:20 05/08/17 07:00 Current Medications Generic Name Dose Route Start Last Admin Trade Name Freq PRN Reason Stop Dose Admin Acetaminophen 650 mg 05/06/17 23:57 05/08/17 21:37 Tylenol Suppository - [place] 650 mg Q6H PRN Administration FEVER Albuterol/Ipratropium 1 amp 05/05/17 20:00 05/09/17 08:40 Duoneb - NEB 1 amp RQID [facility] Administration Alteplase, Recombinant 2 mg 05/07/17 17:30 Cathflo Activase - CVP 05/07/17 17:31 ONCE ONE Aspirin 81 mg 05/06/17 10:00 05/09/17 10:32 Asa - NGT 81 mg DAILY [facility] Administration Atorvastatin Calcium 10 mg 05/05/17 22:00 05/08/17 21:37 Lipitor - NGT 10 mg HS [facility] Administration Heparin Sodium (Porcine) 5,000 unit 05/05/17 22:00 05/09/17 06:16 Heparin - SQ 5,000 unit TID [facility] Administration Levetiracetam 1,500 mg/ Sodium 115 mls @ 460 mls/hr 05/08/17 10:00 05/09/17 10:33 Chloride IVPB 460 mls/hr BID [facility] Administration Dextrose 1,000 mls @ 42 mls/hr 05/08/17 14:31 05/08/17 14:33 D5w - IV 42 mls/hr Q23H [facility] Administration Insulin Aspart 1 vial 05/07/17 16:30 05/09/17 11:21 Novolog Vial Sliding Scale - SQ 2 units ACHS [facility] Administration Protocol Lorazepam 2 mg 05/08/17 02:01 05/08/17 13:10 Ativan Injection - IVPUSH 2 mg Q4H PRN Administration ANXIETY Methylprednisolone Sodium Succinate 60 mg 05/05/17 14:45 05/09/17 10:32 Solu-Medrol - IVPB 60 mg BID [facility] Administration Morphine Sulfate 2 mg 05/06/17 11:52 05/07/17 15:38 Morphine Injection - IVPUSH 2 mg Q3H PRN Administration ANXIETY Pantoprazole Sodium 40 mg 05/06/17 10:00 05/09/17 10:32 Protonix Packets For Oral Suspension - NGT 40 mg DAILY [facility] Administration Impression 1. s/p cardiac arrest 2. chronic respiratory failure 3. history of cardiac arrest in the past as well 4. anemia 5. hyperlipidemia 6. aortic valve disease 7. anxiety 8. urinary retention 9. insomnia 10. DM 11. a-flutter 12. transaminitis 13. azotemia 14. hypernatremia Plan continue current management family reportedly considering extubation would repeat bmp today and adjust fluids MV
--- NOTE | 2017-05-09 12:24 | PN ---
Progress Note, Physician Chief Complaint: FAMILY BEDSIDE NO CHANGE STILL UNRESPONSIVE - Current Medication List Current Medications: Active Medications Acetaminophen (Tylenol Suppository -) 650 mg [place] Q6H PRN PRN Reason: FEVER Last Admin: 05/08/17 21:37 Dose: 650 mg Levetiracetam 1,500 mg/ Sodium (Chloride) 115 mls @ 460 mls/hr IVPB BID [facility] Last Admin: 05/09/17 10:33 Dose: 460 mls/hr Dextrose (D5w -) 1,000 mls @ 42 mls/hr IV Q23H [facility] Last Admin: 05/08/17 14:33 Dose: 42 mls/hr Lorazepam (Ativan Injection -) 2 mg IVPUSH Q4H PRN PRN Reason: ANXIETY Last Admin: 05/08/17 13:10 Dose: 2 mg Morphine Sulfate (Morphine Injection -) 2 mg IVPUSH Q3H PRN PRN Reason: ANXIETY Last Admin: 05/07/17 15:38 Dose: 2 mg - Objective Vital Signs: Vital Signs Temperature 99.1 F 05/09/17 09:00 Pulse Rate 96 H 05/09/17 09:00 Respiratory Rate 18 05/09/17 09:00 Blood Pressure 138/70 05/09/17 09:00 O2 Sat by Pulse Oximetry (%) 97 05/09/17 08:40 Constitutional: Yes: Severe Distress Respiratory: Yes: Mechanically Ventilated Genitourinary: Yes: Cooper Present Edema: Yes Neurological: Yes: Unresponsive Labs: CBC, BMP 05/07/17 20:20 05/08/17 07:00 INR, PTT INR 1.18 (0.82-1.09) H 05/07/17 20:20 Problem List - Problems (1) Anoxia Code(s): R09.02 - HYPOXEMIA (2) Cardiac arrest Code(s): I46.9 - CARDIAC ARREST, CAUSE UNSPECIFIED (3) DVT prophylaxis Code(s): [id number] - (4) Acute and chronic respiratory failure with hypercapnia Code(s): J96.22 - ACUTE AND CHRONIC RESPIRATORY FAILURE WITH HYPERCAPNIA (5) Acute hyperkalemia Code(s): E87.5 - HYPERKALEMIA (6) Acute on chronic systolic (congestive) heart failure Code(s): I50.23 - ACUTE ON CHRONIC SYSTOLIC (CONGESTIVE) HEART FAILURE (7) Acute renal failure (ARF) Code(s): N17.9 - ACUTE KIDNEY FAILURE, UNSPECIFIED Qualifiers: Acute renal failure type: unspecified Qualified Code(s): N17.9 - Acute kidney failure, unspecified (8) Anemia Code(s): D64.9 - ANEMIA, UNSPECIFIED Qualifiers: Anemia type: other cause Other causes of anemia: chronic disease, other Qualified Code(s): D63.8 - Anemia in other chronic diseases classified elsewhere Assessment/Plan PALLIATIVE CARE WITHDRAWEL OF CARE COMFORT MEASURES ONLY STOP LAB DRAWS
[2017-05-09] MEDS: DEXTROSE 5%-WATER - 1,000 ML IV SCH (13:55)
--- NOTE | 2017-05-09 14:09 | PN ---
Progress Note (short form) - Note Progress Note: PULMONARY Remains unresponsive off sedation, vented. Son at bedside. Last Vital Signs Temp Pulse Resp BP Pulse Ox 99.1 F 96 H 18 138/70 100 05/09/17 09:00 05/09/17 09:00 05/09/17 12:22 05/09/17 09:00 05/09/17 09:00 Gen: vented, less tachypneic Heart: RRR Lung: distant breath sounds, no wheezes Abd: soft, nontender Ext: no edema CBC, BMP 05/07/17 20:20 05/08/17 07:00 Active Medications Acetaminophen (Tylenol Suppository -) 650 mg [place] Q6H PRN PRN Reason: FEVER Last Admin: 05/08/17 21:37 Dose: 650 mg Levetiracetam 1,500 mg/ Sodium (Chloride) 115 mls @ 460 mls/hr IVPB BID [facility] Last Admin: 05/09/17 10:33 Dose: 460 mls/hr Dextrose (D5w -) 1,000 mls @ 42 mls/hr IV Q23H [facility] Last Admin: 05/09/17 13:55 Dose: 42 mls/hr Lorazepam (Ativan Injection -) 2 mg IVPUSH Q4H PRN PRN Reason: ANXIETY Last Admin: 05/08/17 13:10 Dose: 2 mg Morphine Sulfate (Morphine Injection -) 2 mg IVPUSH Q3H PRN PRN Reason: ANXIETY Last Admin: 05/07/17 15:38 Dose: 2 mg A/P PEA Cardiac Arrest Acute on Chronic Hypercapneic and Hypoxic Respiratory Failure Severe COPD - r/o Acute Exacerbation Paroxysmal Atrial Flutter CAD s/p CABG s/p bioAVR Lactic Acidosis resolved Elevated LFTs likely ischemic injury Severe LV Systolic Dysfunction +Troponins likely Demand Ischemia HTN Hyperlipidemia DM Seizures - continue supportive care - agree with comfort measures, palliation
--- NOTE | 2017-05-09 17:27 | PN ---
Progress Note (short form) - Note Progress Note: Neurology Follow up note Follow up visit for anoxic encephalopathy, as he has episode of seizure two days ago, his keppra was increased No more seizures , since than. He is off sedation, There has not been any reponse . He is completely vent dependent. Neurological Examination Unresponsive to pain, or verbal stimmuli Pupils is unequal and unreponsive Assessment:Severe anoxic encephalopathy Plan: continue high dose of keppra 1500 mg bid and supportive care Thanking you so much, Mehrdad Vegas MD
[2017-05-10] MEDS: morphine CARPU-JECT 10 MG/1 ML DISP.SYRIN IVPUSH PRN ×4 (03:02→15:52)
[2017-05-10 08:35] LABS: CHLORIDE 116 mmol/L (98-107); POTASSIUM 4.8 mmol/L (3.5-5.1); SODIUM 152 mmol/L (136-145)
[2017-05-10 08:59] LABS: ANION GAP 5 (8-16); BLOOD UREA NITROGEN 40 mg/dL (7-18); CALCIUM 7.1 mg/dL (8.5-10.1); CO2 31 mmol/L (21-32); CREATININE 0.5 mg/dL (0.7-1.3); GLUCOSE,RANDOM 196 mg/dL (74-106)
[2017-05-10] MEDS ORDERED: PT OWN MED DRAWER 7, Y5N ONE ×2 (09:32→23:24)
[2017-05-10] MEDS: LEVETIRACETAM IVPB SCH ×2 (12:05→23:36)
[2017-05-10] MEDS: SODIUM CHLORIDE IVPB SCH ×2 (12:05→23:36)
--- NOTE | 2017-05-10 13:45 | PN ---
Progress Note, Physician History of Present Illness: Pt seen and examined at bedside. He remains lethargic. - Current Medication List Current Medications: Active Medications Acetaminophen (Tylenol Suppository -) 650 mg [place] Q6H PRN PRN Reason: FEVER Last Admin: 05/08/17 21:37 Dose: 650 mg Levetiracetam 1,500 mg/ Sodium (Chloride) 115 mls @ 460 mls/hr IVPB BID [facility] Last Admin: 05/10/17 12:05 Dose: 460 mls/hr Dextrose (D5w -) 1,000 mls @ 42 mls/hr IV Q23H [facility] Last Admin: 05/09/17 13:55 Dose: 42 mls/hr Lorazepam (Ativan Injection -) 2 mg IVPUSH Q4H PRN PRN Reason: ANXIETY Last Admin: 05/08/17 13:10 Dose: 2 mg Morphine Sulfate (Morphine Injection -) 2 mg IVPUSH Q3H PRN PRN Reason: ANXIETY Last Admin: 05/10/17 12:05 Dose: 2 mg - Objective Vital Signs: Vital Signs Temperature 99.4 F 05/10/17 06:00 Pulse Rate 87 05/10/17 06:00 Respiratory Rate 14 05/10/17 09:26 Blood Pressure 136/65 05/10/17 06:00 O2 Sat by Pulse Oximetry (%) 98 05/09/17 21:00 Constitutional: Yes: Calm Neck: Yes: Other (trache) Cardiovascular: Yes: S1, S2 Respiratory: Yes: Mechanically Ventilated Gastrointestinal: Yes: Soft Genitourinary: Yes: Incontinence Musculoskeletal: Yes: Muscle Weakness Edema: Yes Edema: LUE: 1+, RUE: 1+, LLE: 1+, RLE: 1+ Neurological: Yes: Lethargy Labs: CBC, BMP 05/07/17 20:20 05/10/17 07:20 INR, PTT INR 1.18 (0.82-1.09) H 05/07/17 20:20 Problem List - Problems (1) Azotemia Code(s): R79.89 - OTHER SPECIFIED ABNORMAL FINDINGS OF BLOOD CHEMISTRY (2) Cardiac arrest Code(s): I46.9 - CARDIAC ARREST, CAUSE UNSPECIFIED Assessment/Plan Current Medications Generic Name Dose Route Start Last Admin Trade Name Freq PRN Reason Stop Dose Admin Acetaminophen 650 mg 05/06/17 23:57 05/08/17 21:37 Tylenol Suppository - [place] 650 mg Q6H PRN Administration FEVER Levetiracetam 1,500 mg/ Sodium 115 mls @ 460 mls/hr 05/08/17 10:00 05/10/17 12:05 Chloride IVPB 460 mls/hr BID [facility] Administration Dextrose 1,000 mls @ 42 mls/hr 05/08/17 14:31 05/09/17 13:55 D5w - IV 42 mls/hr Q23H [facility] Administration Lorazepam 2 mg 05/08/17 02:01 05/08/17 13:10 Ativan Injection - IVPUSH 2 mg Q4H PRN Administration ANXIETY Morphine Sulfate 2 mg 05/06/17 11:52 05/10/17 12:05 Morphine Injection - IVPUSH 2 mg Q3H PRN Administration ANXIETY Impression 1. s/p cardiac arrest 2. chronic respiratory failure 3. history of cardiac arrest in the past as well 4. anemia 5. hyperlipidemia 6. aoritc valve disease 7. anxiety 8. urinary retention 9. insomnia 10. DM 11. a-flutter 12. transaminitis 13. azotemia 14. hypernatremia Plan - labs reviewed - chart reviewed - discussed with family at bedside - pt on comfort care - will follow PRN Dr Garrison
[2017-05-10] MEDS: DEXTROSE 5%-WATER - 1,000 ML IV SCH (14:36)
--- NOTE | 2017-05-10 15:21 | PN ---
Progress Note, Physician History of Present Illness: PULMONARY UNRESPONSIVE ON VENT SUPPORT AC MODE - Current Medication List Current Medications: Active Medications Acetaminophen (Tylenol Suppository -) 650 mg [place] Q6H PRN PRN Reason: FEVER Last Admin: 05/08/17 21:37 Dose: 650 mg Levetiracetam 1,500 mg/ Sodium (Chloride) 115 mls @ 460 mls/hr IVPB BID [facility] Last Admin: 05/10/17 12:05 Dose: 460 mls/hr Dextrose (D5w -) 1,000 mls @ 42 mls/hr IV Q23H [facility] Last Admin: 05/10/17 14:36 Dose: 42 mls/hr Lorazepam (Ativan Injection -) 2 mg IVPUSH Q4H PRN PRN Reason: ANXIETY Last Admin: 05/08/17 13:10 Dose: 2 mg Morphine Sulfate (Morphine Injection -) 2 mg IVPUSH Q3H PRN PRN Reason: ANXIETY Last Admin: 05/10/17 12:05 Dose: 2 mg - Objective Vital Signs: Vital Signs Temperature 100.2 F H 05/10/17 14:45 Pulse Rate 110 H 05/10/17 14:45 Respiratory Rate 14 05/10/17 14:45 Blood Pressure 146/92 05/10/17 14:45 O2 Sat by Pulse Oximetry (%) 98 05/09/17 21:00 Constitutional: Yes: Thin, Other (UNRESPONSIVE) Eyes: Yes: WNL HENT: Yes: WNL Neck: Yes: Supple (TRACH) Cardiovascular: Yes: Regular Rate and Rhythm, S1, S2 Respiratory: Yes: Diminished Gastrointestinal: Yes: Normal Bowel Sounds, Soft Extremities: Yes: WNL Edema: Yes Labs: CBC, BMP 05/07/17 20:20 05/10/17 07:20 INR, PTT INR 1.18 (0.82-1.09) H 05/07/17 20:20 Problem List - Problems (1) Anoxia Code(s): R09.02 - HYPOXEMIA (2) Azotemia Code(s): R79.89 - OTHER SPECIFIED ABNORMAL FINDINGS OF BLOOD CHEMISTRY (3) Cardiac arrest Code(s): I46.9 - CARDIAC ARREST, CAUSE UNSPECIFIED (4) Acute and chronic respiratory failure with hypercapnia Code(s): J96.22 - ACUTE AND CHRONIC RESPIRATORY FAILURE WITH HYPERCAPNIA (5) CAD (coronary artery disease) Code(s): I25.10 - ATHSCL HEART DISEASE OF [place] CORONARY ARTERY W/O ANG PCTRS (6) COPD (chronic obstructive pulmonary disease) Code(s): J44.9 - CHRONIC OBSTRUCTIVE PULMONARY DISEASE, UNSPECIFIED Qualifiers: Emphysema type: unspecified (7) Chronic respiratory failure Code(s): J96.10 - CHRONIC RESPIRATORY FAILURE, UNSP W HYPOXIA OR HYPERCAPNIA Qualifiers: Respiratory failure complication: hypoxia and hypercapnia Qualified Code(s) : J96.11 - Chronic respiratory failure with hypoxia (8) Respiratory failure Code(s): J96.90 - RESPIRATORY FAILURE, UNSP, UNSP W HYPOXIA OR HYPERCAPNIA Qualifiers: Chronicity: acute on chronic Assessment/Plan A/P PEA Cardiac Arrest Acute on Chronic Hypercapneic and Hypoxic Respiratory Failure Severe COPD - r/o Acute Exacerbation Paroxysmal Atrial Flutter CAD s/p CABG s/p bioAVR Lactic Acidosis resolved Elevated LFTs likely ischemic injury Severe LV Systolic Dysfunction +Troponins likely Demand Ischemia HTN Hyperlipidemia DM Seizures - continue supportive care - agree with comfort measures, palliation DR GIANG
--- NOTE | 2017-05-10 15:22 | PN ---
Progress Note, Physician Chief Complaint: FAMILY MEETING TODAY SCHEDULED FOR TERMINAL WEAN TOMORROW NOON PALLIATIVE CARE AWARE CLERGY HAS VISITED PATIENT - Current Medication List Current Medications: Active Medications Acetaminophen (Tylenol Suppository -) 650 mg [place] Q6H PRN PRN Reason: FEVER Last Admin: 05/08/17 21:37 Dose: 650 mg Levetiracetam 1,500 mg/ Sodium (Chloride) 115 mls @ 460 mls/hr IVPB BID [facility] Last Admin: 05/10/17 12:05 Dose: 460 mls/hr Dextrose (D5w -) 1,000 mls @ 42 mls/hr IV Q23H [facility] Last Admin: 05/10/17 14:36 Dose: 42 mls/hr Lorazepam (Ativan Injection -) 2 mg IVPUSH Q4H PRN PRN Reason: ANXIETY Last Admin: 05/08/17 13:10 Dose: 2 mg Morphine Sulfate (Morphine Injection -) 2 mg IVPUSH Q3H PRN PRN Reason: ANXIETY Last Admin: 05/10/17 12:05 Dose: 2 mg - Objective Vital Signs: Vital Signs Temperature 100.2 F H 05/10/17 14:45 Pulse Rate 110 H 05/10/17 14:45 Respiratory Rate 14 05/10/17 14:45 Blood Pressure 146/92 05/10/17 14:45 O2 Sat by Pulse Oximetry (%) 98 05/09/17 21:00 Constitutional: Yes: Severe Distress Eyes: Yes: Other HENT: Yes: Other Neck: Yes: WNL Cardiovascular: Yes: Tachycardia Respiratory: Yes: Mechanically Ventilated Gastrointestinal: Yes: WNL Genitourinary: Yes: Cooper Present Musculoskeletal: Yes: Muscle Weakness Extremities: Yes: Other Edema: Yes Integumentary: Yes: WNL Wound/Incision: Yes: Clean/Dry Neurological: Yes: Pre-Existing Deficit, Unresponsive, Weakness ...Motor Strength: LUE, LLE, RUE, RLE Labs: CBC, BMP 05/07/17 20:20 05/10/17 07:20 INR, PTT INR 1.18 (0.82-1.09) H 05/07/17 20:20 Problem List - Problems (1) Anoxia Code(s): R09.02 - HYPOXEMIA (2) Cardiac arrest Code(s): I46.9 - CARDIAC ARREST, CAUSE UNSPECIFIED (3) DVT prophylaxis Code(s): [id number] - (4) Acute and chronic respiratory failure with hypercapnia Code(s): J96.22 - ACUTE AND CHRONIC RESPIRATORY FAILURE WITH HYPERCAPNIA (5) Acute hyperkalemia Code(s): E87.5 - HYPERKALEMIA (6) Acute on chronic systolic (congestive) heart failure Code(s): I50.23 - ACUTE ON CHRONIC SYSTOLIC (CONGESTIVE) HEART FAILURE (7) Acute renal failure (ARF) Code(s): N17.9 - ACUTE KIDNEY FAILURE, UNSPECIFIED Qualifiers: Acute renal failure type: unspecified Qualified Code(s): N17.9 - Acute kidney failure, unspecified (8) Anemia Code(s): D64.9 - ANEMIA, UNSPECIFIED Qualifiers: Anemia type: other cause Other causes of anemia: chronic disease, other Qualified Code(s): D63.8 - Anemia in other chronic diseases classified elsewhere Assessment/Plan TERMINAL WEAN OFF VENT TOMORROW PALLIATIVE CARE AWARE MORPHINE PRN COMFORT CARE FOR NOW
[2017-05-10] MEDS ORDERED: SCOPOLAMINE HYDROBROMIDE 1 PATCH PATCH.TD72 TD SCH (16:30)
[2017-05-11 07:08] VITALS: TEMP 99.9
[2017-05-11 09:52] VITALS: BP 142/84; PULSE 120
[2017-05-11] MEDS: LEVETIRACETAM IVPB SCH (10:30)
[2017-05-11] MEDS: SODIUM CHLORIDE IVPB SCH (10:30)
[2017-05-11] MEDS: morphine CARPU-JECT 10 MG/1 ML DISP.SYRIN IVPUSH PRN (10:46)
--- NOTE | 2017-05-11 12:12 | PN ---
Progress Note (short form) - Note Progress Note: discussed with patients and sons. The rip who gives full authority to her sons tristin and tera to make all decisions for their dad (her ). Will terminally wean as directed. Problem List - Problems (1) Anoxia Code(s): R09.02 - HYPOXEMIA (2) Cardiac arrest Code(s): I46.9 - CARDIAC ARREST, CAUSE UNSPECIFIED (3) DVT prophylaxis Code(s): LBU1998 - (4) Acute and chronic respiratory failure with hypercapnia Code(s): J96.22 - ACUTE AND CHRONIC RESPIRATORY FAILURE WITH HYPERCAPNIA (5) Acute hyperkalemia Code(s): E87.5 - HYPERKALEMIA (6) Acute on chronic systolic (congestive) heart failure Code(s): I50.23 - ACUTE ON CHRONIC SYSTOLIC (CONGESTIVE) HEART FAILURE (7) Acute renal failure (ARF) Code(s): N17.9 - ACUTE KIDNEY FAILURE, UNSPECIFIED Qualifiers: Acute renal failure type: unspecified Qualified Code(s): N17.9 - Acute kidney failure, unspecified (8) Anemia Code(s): D64.9 - ANEMIA, UNSPECIFIED Qualifiers: Anemia type: other cause Other causes of anemia: chronic disease, other Qualified Code(s): D63.8 - Anemia in other chronic diseases classified elsewhere
[2017-05-11] MEDS ORDERED: MORPHINE 100 MG in SODIUM CHLORIDE 98 ML IVPB SCH (12:15)
[2017-05-11] MEDS: LORazepam 2 MG/ML SDV VIAL IVPUSH PRN (12:15)
--- NOTE | 2017-05-11 13:01 | PN ---
Progress Note, Physician Chief Complaint: Respiratory arrest History of Present Illness: on mechanical vent family at bedside not at bedside - Current Medication List Current Medications: Active Medications Acetaminophen (Tylenol Suppository -) 650 mg AK Q6H PRN PRN Reason: FEVER Last Admin: 05/08/17 21:37 Dose: 650 mg Levetiracetam 1,500 mg/ Sodium (Chloride) 115 mls @ 460 mls/hr IVPB BID RICKY Last Admin: 05/11/17 10:30 Dose: 460 mls/hr Morphine Sulfate 100 mg/ (Sodium Chloride) 100 mls @ 1 mls/hr IVPB TITR RICKY; 1 MG/HR PRN Reason: Protocol Lorazepam (Ativan Injection -) 2 mg IVPUSH Q4H PRN PRN Reason: ANXIETY Last Admin: 05/11/17 12:15 Dose: 2 mg Scopolamine HBr (Transderm-Scop -) 1 patch TD Q72H RICKY Last Admin: 05/10/17 23:37 Dose: 1 patch - Objective Vital Signs: Vital Signs Temperature 99.9 F H 05/11/17 06:00 Pulse Rate 120 H 05/11/17 09:30 Respiratory Rate 14 05/11/17 09:59 Blood Pressure 142/84 05/11/17 09:30 O2 Sat by Pulse Oximetry (%) 97 05/11/17 09:00 Constitutional: Yes: Well Nourished, Calm, Mild Distress Cardiovascular: Yes: Regular Rate and Rhythm Respiratory: Yes: Mechanically Ventilated Gastrointestinal: Yes: WNL Musculoskeletal: Yes: WNL Extremities: Yes: WNL Neurological: Yes: Unresponsive Labs: CBC, BMP 05/07/17 20:20 05/10/17 07:20 INR, PTT INR 1.18 (0.82-1.09) H 05/07/17 20:20 Problem List - Problems (1) Cardiac arrest Assessment/Plan: - on mechanical vent, -Dr. Adams spoke to today, sons are aware -patient to be compassionately weaned Code(s): I46.9 - CARDIAC ARREST, CAUSE UNSPECIFIED (2) Acute and chronic respiratory failure with hypercapnia Code(s): J96.22 - ACUTE AND CHRONIC RESPIRATORY FAILURE WITH HYPERCAPNIA (3) Ventilator dependence Code(s): Z99.11 - DEPENDENCE ON RESPIRATOR [VENTILATOR] STATUS Assessment/Plan see problem list
[2017-05-11] MEDS ORDERED: morphine CARPU-JECT 10 MG/1 ML DISP.SYRIN IVPUSH ONE (14:00)
[2017-05-11] MEDS: DEXTROSE 5%-WATER - 1,000 ML IV SCH (14:00)
[2017-05-11] MEDS ORDERED: LORazepam 2 MG/ML SDV VIAL IVPUSH ONE (14:00)
--- NOTE | 2017-05-11 15:02 | HOSP ---
Physical Examination Vital Signs: Vital Signs Temperature 99.9 F H 05/11/17 06:00 Pulse Rate 120 H 05/11/17 09:30 Respiratory Rate 14 05/11/17 09:59 Blood Pressure 142/84 05/11/17 09:30 O2 Sat by Pulse Oximetry (%) 97 05/11/17 09:00 Labs: CBC, BMP 05/07/17 20:20 05/10/17 07:20
== END 2017-05-11 14:57 | disposition expired | DRG 207 ==
LOC: JER 19:29 → JERBED 21:33 → JICU 05-01 15:16 → JERBED 05-01 15:23 → JICU 05-01 16:32 → J5S 05-06 00:10
PROVIDERS: ADMIT Family Medicine; ATTEND Family Medicine
PROC: 5A1955Z Respiratory Ventilation, Greater than 96 Consecutive Hours (ICD-10-PCS; principal; 2017-05-01)
PROC: 03HY32Z Insertion of Monitoring Device into Upper Artery, Percutaneous Approach (ICD-10-PCS; 2017-05-01)
PROC: 05HM33Z Insertion of Infusion Device into Right Internal Jugular Vein, Percutaneous Approach (ICD-10-PCS; 2017-05-01)
DX: J96.22 Acute and chronic respiratory failure with hypercapnia (principal); E87.2 Acidosis; Z99.11 Dependence on respirator [ventilator] status; N17.9 Acute kidney failure, unspecified; I48.92 Unspecified atrial flutter; G93.1 Anoxic brain damage, not elsewhere classified; E87.0 Hyperosmolality and hypernatremia; I46.9 Cardiac arrest, cause unspecified; D72.829 Elevated white blood cell count, unspecified; I25.10 Atherosclerotic heart disease of native coronary artery without angina pectoris; J44.9 Chronic obstructive pulmonary disease, unspecified; E87.5 Hyperkalemia; D64.9 Anemia, unspecified; J96.21 Acute and chronic respiratory failure with hypoxia; E78.5 Hyperlipidemia, unspecified; I10 Essential (primary) hypertension; R56.9 Unspecified convulsions; Z95.1 Presence of aortocoronary bypass graft; R33.9 Retention of urine, unspecified; R74.0 Nonspecific elevation of levels of transaminase and lactic acid dehydrogenase [LDH]; G47.00 Insomnia, unspecified; F51.9 Sleep disorder not due to a substance or known physiological condition, unspecified; I25.5 Ischemic cardiomyopathy; E11.65 Type 2 diabetes mellitus with hyperglycemia; Z93.0 Tracheostomy status; I95.9 Hypotension, unspecified; I25.2 Old myocardial infarction
CPT/HCPCS: 36415; 36600; 71045-TC; 74018-TC; 80048; 80053; 81003; 81015; 82375; 82550; 82803; 82962; 83036; 83050; 83605; 83735; 83880; 84100; 84484; 85025; 85027; 85610; 85730; 87040; 93005; 93010; 93306-TC; 94002; 94640; 99285-25; J1644; J2997